=== PATIENT | female | born 1960 | race Caucasian/White ===

== ENCOUNTER → 2019-11-27 | Day surgery (SDC) | payer OTHER ==
[2019-11-24 09:36] LABS: BASOPHILS # (AUTO) 0.1 (0.0-0.1); BASOPHILS % 0.8 % (0.0-1.0); EOSINOPHILS # (AUTO) 0.3 (0.0-0.4); EOSINOPHILS % 4.7 % (0.0-6.0); HEMATOCRIT 36.3 % (34.2-44.1); LYMPHOCYTES # (AUTO) 1.8 (1.0-3.2); LYMPHOCYTES % 29.3 % (18.0-39.1); MEAN CORPUSCULAR HEMOGLOBIN 29.8 pg (28-32); MEAN CORPUSCULAR HGB CONC 33.1 g/dL (31-35); MEAN CORPUSCULAR VOLUME 90.1 fL (81-99); MONOCYTES # (AUTO) 0.5 (0.2-0.8); MONOCYTES % 7.8 % (4.4-11.3); NEUTROPHILS # (AUTO) 3.4 (2.1-6.9); NEUTROPHILS % 57.1 % (38.7-80.0); PLATELET COUNT 279 x10e3/uL (140-360); RED BLOOD COUNT 4.03 x10e6/uL (3.6-5.1); RED CELL DISTRIBUTION WIDTH 12.8 % (11.7-14.4)
[2019-11-24 09:51] LABS: INR 0.88; PROTHROMBIN TIME 12.4 seconds (11.9-14.5)
[2019-11-24 09:58] LABS: ALANINE AMINOTRANSFERASE 14 IU/L (0-55); ALBUMIN 4.3 g/dL (3.5-5.0); ALBUMIN/GLOBULIN RATIO 1.5 (0.8-2.0); ALKALINE PHOSPHATASE 78 IU/L (40-150); ANION GAP 12.3 mmol/L (8-16); BLOOD UREA NITROGEN 18 mg/dL (7-26); BUN/CREATININE RATIO 25 (6-25); CALCIUM 9.1 mg/dL (8.4-10.2); CARBON DIOXIDE 28 mmol/L (22-29); CHLORIDE 106 mmol/L (98-107); CREATININE, SERUM 0.72 mg/dL (0.57-1.11); EST GLOMERULAR FILTRATION RATE > 60 ML/MIN (60-); GLUCOSE 93 mg/dL (74-118); POTASSIUM 4.3 mmol/L (3.5-5.1); SODIUM 142 mmol/L (136-145)
--- NOTE | 2019-11-25 17:00 | NUR ---
Pt contacted by phone for interview of scheduled procedure. Review of medical history and current medications. Procedural consent on day of arrival to be completed, pre-op orders, and twice bathing education completed. All questions clarified and or answered where appropriate. pt verbalizes understanding to include day of procedure expectations and practice social distancing. Pt to bring medication list day of . - [facility] [place]
[2019-11-27] VITALS (9 sets, daily range): BP systolic 136–163; BP diastolic 54–87
[~2019-11-27] VITALS: Ht 157.5 cm; Wt 85.3 kg
[~2019-11-27] MED LIST: ADENOSINE 3MG/1ML 30ML VIAL ONE; ATENOLOL50 MG PO; FENTANYL CITRATE/PF 100MCG/2 ML INJ ONE; FUROSEMIDE40 MG PO; HEPARIN SOD/SOD CHLORIDE 2,000 ML ONE; IBUPROFEN400 MG PO; IOPAMIDOL 370 MG/ML 200 ML INFUS..BTL INJ ONE; LEVOTHYROXINE112 MCG PO; LIDOCAINE HCL 2% LOCAL 20 ML VIAL ONE; LOVASTATIN20 MG PO; MIDAZOLAM HCL 2 MG/2 ML VIAL ONE; SODIUM CHLORIDE 0.9% 1000ML 1,000 ML ONE; SODIUM CHLORIDE 0.9% 50ML 50 ML ONE; ULTRAM50 MG PO
--- NOTE | 2019-11-27 08:10 | NUR ---
0810am PREP NOTE PROCEDRAL .................................................................................. pt in XXXXXX, prepped for procedure. Alert oriented and appropriate, PERRLA, respirations even and unlabored to room air. Pulses x4 extremities equal and faint. Pedal pulses PT/DP weak to nonexistent and marked. Cap fill brisk < 3 sec. bilateral feet semi cool and pale. Skin warm and dry integrity appears intact in general. IV #20 left ac x2 started and presents healthy w/o s/s of infiltration or complaint. Abdomen soft and supple. pt offered toileting, denies need to urinate or defecate. Personal affects with patient. Family at bedside. Pt and family verbalizes understanding of POC. gabi --- Addendum: 11/27/19 at 1636 by Darcy Camacho RN 0810am Pt is in Prep room #10 gabi
--- NOTE | 2019-11-27 11:11 | NUR ---
1111 am RECEIVING NOTE BUREAU CHIEF RECOVERY DEPT............................................................... Bedside report received from RN. Identifierx2. Alert oriented and appropriate, PERRLA, respirations even and unlabored to room air. Pulses x4 extremities equal and strong. Pedal pulses PT/DP X2 and marked. Cap fill brisk < 3 sec. Rt tr band site intact.No gross issues pain,pallor,pressure or dysthymia. Skin warm and dry integrity appears D/I IV 20g to ac presents healthy w/o s/s of infiltration or complaint. Abdomen soft and supple. pt offered toileting, denies need to urinate or defecate. No personal affects with patient. Family at bedside. Pt and family verbalizes understanding of POC. Currently w/o complaint of pain or need. -ds/rn
--- NOTE | 2019-11-27 11:15 | NUR ---
Bedside report received from Bisi HORTON. Identifierx2. Alert oriented and appropriate, PERRLA, respirations even and unlabored to room air. Pulses x4 extremities equal and strong. + neovascular function Cap fill brisk < 3 sec. Skin warm and dry integrity appears intact. IV 20g to left AC presents healthy w/o s/s of infiltration or complaint. Abdomen soft and supple. pt offered toileting, denies need to urinate or defecate. Personal affects with patient. Family brought to bedside. Pt and family verbalizes understanding of POC. Dr Spencer to room discussing POC -cgf
--- NOTE | 2019-11-27 12:00 | NUR ---
1200 RADIAL Compression removal: Initial Cuff volume 13cc 12noon -3cc Removed No hematoma/bleeding noted with normal neurovascular function. 1215 -5cc Removed No hematoma/ bleeding noted with normal neurovascular function. 1230 -5cc Removed No hematoma/bleeding noted with normal neurovascular function. Air removal completed. Stasis achieved sterile 2x2,Tegaderm, Coban dressing No hematoma, bleeding noted with normal neurovascular function. Pt instructed on POC. Ds/Rn
--- NOTE | 2019-11-27 13:21 | Operative Report ---
DATE OF PROCEDURE: 11/27/2019 SURGEON: Brian Spencer DO PROCEDURES PERFORMED: 1. Conscious sedation, 40 minutes. 2. Selective coronary angiography x2. 3. Left heart catheterization. 4. Fractional flow reserve measurement of the left anterior descending coronary artery. PREPROCEDURE DIAGNOSIS: Abnormal stress test. POSTPROCEDURE DIAGNOSIS: Abnormal stress test. ESTIMATED BLOOD LOSS: Less than 20 mL. SPECIMENS REMOVED: None. PROCEDURE IN DETAIL: After informed consent was obtained, the patient was brought to the cardiac catheterization laboratory in a fasting and nonsedated state. Bilateral groins and right wrist were prepped and draped in the usual sterile fashion. The patient received fentanyl and midazolam administered by the laborer prestressed concrete nurse and her neurologic and physiologic status were monitored by myself and laborer prestressed concrete staff for 40 minutes. A 2% lidocaine was infiltrated over the right anterior wrist for local anesthesia. Using a micropuncture needle, the right radial artery was accessed via the modified Seldinger technique and a 5/6 Slender sheath was placed. Next, diagnostic selective coronary angiography x2 and left heart catheterization were performed. Next, I want to further interrogate the left anterior descending coronary artery stenosis with FFR, so the patient received additional heparin for therapeutic anticoagulation. The left main was cannulated with an XB LAD 3.0 guide catheter. After zeroing and equalization of pressures, the 3 LAD lesions were crossed with the common FFR wire and the patient received systemic adenosine for therapeutic hyperemia. The lowest FFR reading was 0.66, indicating the stenotic lesions were hemodynamically significant. Everything was subsequently removed. Final angiography confirmed patency of the vessels. The patient tolerated the procedure well with no immediate complications. Hemostasis was achieved via TR band. She was transferred back to her room in stable condition. PROCEDURAL FINDINGS: 1. Left main coronary artery is long and patent with no stenotic disease. 2. The proximal LAD is short without significant obstructive disease. The 1st diagonal branch is a smaller vessel, 2 to 2.25 mm in diameter. It has a long diffuse 70% stenosis. Just after the takeoff of the 1st small diagonal branch, there is a severe 70% to 80% stenosis of the LAD. There then 2 other tandem 70% lesions in the mid to distal LAD. 3. The left circumflex coronary artery provides 2 obtuse marginal vessels. There is diffuse plaquing throughout the circumflex artery. The 1st obtuse marginal vessel has an ostial 70% stenosis. 4. The right coronary artery is a large dominant vessel and provides posterior lateral branches and a PDA. The ostial PDA has a 50% stenosis. 5. Left ventricular end-diastolic pressure was 15 mmHg with no aortic valve gradient present upon pullback. IMPRESSION: Severe coronary artery disease. RECOMMENDATIONS: Referred for bypass surgery. DO PORSCHE Klein/MODL /[id number]
--- NOTE | 2019-11-27 13:30 | NUR ---
1330pm TELEMARKETING REPRESENTATIVE RECOVERY DISCHARGE NURSING NOTE Pt meets DC criteria. Rt TR band assessed for s/s of complication and presecence of hematoma. Skin warm, dry, no discolor, and pulses present. IV removed rt ac. Distal tip appears intact. VS WNL. Pt denies pain, sob, or need at this time. Family at BS. Review of discharge paperwork and follow up instructions. verbalized understanding. Pt to wheelchair and transported to front of hospital. Transferred to private vehicle under own strength w/o incident with DC paperwork in hand. - debra/dmitriy
== END | disposition home or self-care (01) ==
LOC: CATH LAB 06:50
PROVIDERS: ATTEND Internal Medicine Cardiovascular Disease
DX: I25.10 Atherosclerotic heart disease of native coronary artery without angina pectoris (principal); R94.39 Abnormal result of other cardiovascular function study; Z01.812 Encounter for preprocedural laboratory examination; Z11.59 Encounter for screening for other viral diseases
CPT/HCPCS: 36415; 80053; 85025; 85610; 93458; 93571; C1753; C1887; J0153; J2001; J2250; J3010; J7030; Q9967; U0002; 99152; 99153

== ENCOUNTER 2020-01-13 20:36 | Emergency (ER) | payer OTHER ==
[~2020-01-13] VITALS: Ht 157.5 cm; Wt 85.3 kg
[~2020-01-13 20:36] MED LIST changes: -ADENOSINE 3MG/1ML 30ML VIAL ONE; -FENTANYL CITRATE/PF 100MCG/2 ML INJ ONE; -HEPARIN SOD/SOD CHLORIDE 2,000 ML ONE; -IOPAMIDOL 370 MG/ML 200 ML INFUS..BTL INJ ONE; -LIDOCAINE HCL 2% LOCAL 20 ML VIAL ONE; -MIDAZOLAM HCL 2 MG/2 ML VIAL ONE; -SODIUM CHLORIDE 0.9% 1000ML 1,000 ML ONE; -SODIUM CHLORIDE 0.9% 50ML 50 ML ONE
[2020-01-13] MEDS ORDERED: SODIUM CHLORIDE 0.9% 500ML 500 ML IV STA (21:09)
[2020-01-13] MEDS ORDERED: ONDANSETRON HCL INJ 2MG/ML 2ML 2 MG/ML VIAL IV PRN (21:15)
--- NOTE | 2020-01-13 21:27 | Emergency Department Note ---
History of Present Illnes History of Present Illness Chief Complaint: Abdominal Complaints History of Present Illness This is a 59 year old female Chief Complaint Comment 59 Y/O FEMALE PT AAOX3 PRESENTS TO THE ER C/O LOWER ABD PAIN ONSET ONSET THIS EVENING; PT STATES LAST BM WAS ON 01/07/20; PT STATES SHE HAS BEEN TAKING MIRALAX WITH NO RELIEF; PT STATES SHE HAD A TRIPLE BYPASS ON 12/15/19 AT [facility]; PT DENIES ANY URINARY SYMPTOMS; Historian: Patient Arrival Mode: Car Motion Graphics Artist Required: No Onset (how long ago): day(s) (10) Location: lower abd Quality: pressure Radiation: Reports non-radiation Severity: moderate Onset quality: gradual Duration (how long): day(s) (10) Timing of current episode: constant Progression: worsening Chronicity: new Context: Reports recent surgery (Triple bypass); Denies recent illness Relieving factors: none Exacerbating factors: none Associated symptoms: Reports denies other symptoms Treatments prior to arrival: none Past Medical/Family History Physician Review I have reviewed the patient's past medical and family history. Any updates have been documented here. Past Medical History Recent Fever: No Clinical Suspicion of Infectio: No New/Unexplained Change in Ment: No Past Medical History: Hypertension, A-Fib, Hypothyroidism, Hyperlipedemia Past Surgical History: CABG Other Surgery: TRIPLE BYPASS - 12/15/19 Review of Systems Review of Systems Constitutional: Reports no symptoms EENTM: Reports no symptoms Cardiovascular: Reports no symptoms Respiratory: Reports no symptoms Gastrointestinal: Reports as per HPI, Reports abdominal pain Genitourinary: Reports no symptoms Musculoskeletal: Reports no symptoms Integumentary: Reports no symptoms Neurological: Reports no symptoms Psychological: Reports no symptoms Endocrine: Reports no symptoms Hematological/Lymphatic: Reports no symptoms Physical Exam Related Data Allergies: Coded Allergies: Sulfa (Sulfonamide Antibiotics) (Verified Allergy, Unknown, 01/13/20) erythromycin base (Verified Allergy, Unknown, 01/13/20) Triage Vital Signs Vital Signs Date Time Temp Pulse Resp B/P (MAP) Pulse Ox O2 Delivery O2 Flow Rate FiO2 01/13/20 20:51 98.3 78 20 140/75 100 Room Air Vital signs reviewed: Yes Physical Exam CONSTITUTIONAL Constitutional: Present well-developed, Present well-nourished HENT HENT: Present normocephalic, Present atraumatic, Present oropharynx clear/moist, Present nose normal HENT L/R: Present left ext ear normal, Present right ext ear normal EYES Eyes: Reports PERRL, Reports conjunctivae normal NECK Neck: Present ROM normal PULMONARY Pulmonary: Present effort normal, Present breath sounds normal CARDIOVASCULAR Cardiovascular: Present regular rhythm, Present heart sounds normal, Present capillary refill normal, Present normal rate GASTROINTESTINAL Abdominal: Present soft, Present nontender, Present bowel sounds normal GENITOURINARY Genitourinary: Present exam deferred SKIN Skin: Present warm, Present dry MUSCULOSKELETAL Musculoskeletal: Present ROM normal NEUROLOGICAL Neurological: Present alert, Present oriented x 3, Present no gross motor or sensory deficits PSYCHOLOGICAL Psychological: Present mood/affect normal, Present judgement normal Assessment & Plan Medical Decision Making MDM 59 y.o F presents for abd pain and constipation. No sig abd tenderness. No BM for 10 days. Initial diff includes SBO vs constipation vs functional abd pain among others. W/o including Ct abd/pelv, labs show no SBO. Diagnosis favors constipation. Incidental UTI noted. Will Rx Keflex and send home with [place]. Doubt emergent process at this time. I discussed results patient as well as expected disease time course and management. They will follow up with their primary care provider or return to the emergency department for new or worsening symptoms. Patient's appropriate for discharge. Reassessment Reassessment time: 21:26 Reassessment Well appearing, NAD Assessment & Plan Final Impression: (1) Constipation (2) UTI (urinary tract infection) Depart Disposition: HOME, SELF-CARE Last Vital Signs Date Time Temp Pulse Resp B/P (MAP) Pulse Ox O2 Delivery O2 Flow Rate FiO2 01/13/20 20:51 98.3 78 20 140/75 100 Room Air Home Meds Reported Medications Tramadol Hcl (ULTRAM) 50 Mg Tablet, 50 MG PO Q12H PRN for CRAMPS, TAB 11/25/19 Ibuprofen (IBUPROFEN) 400 Mg Tablet, 800 MG PO Q8H PRN for MODERATE PAIN (4-6), TAB 11/25/19 Furosemide (FUROSEMIDE) 40 Mg Tablet, 20 MG PO Daily, #30 TAB 11/25/19 Levothyroxine Sodium (LEVOTHYROXINE SODIUM) 112 Mcg Tablet, 137 MCG PO DAILY, #30 TAB 11/25/19 Atenolol (ATENOLOL) 50 Mg Tablet, 50 MG PO DAILY 11/25/19 Lovastatin (LOVASTATIN) 20 Mg Tablet, 20 MG PO DAILY 11/25/19 Medications in the ED Ondansetron HCl 4 mg Q4H PRN IV NAUSEA AND VOMITING; Start 01/13/20 at 21:15; Stop 02/12/20 at 21:14 Sodium Chloride 500 ml @ 0 mls/hr Q0M STAT IV ; Start 01/13/20 at 21:09; Stop 01/13/20 at 21:10; Status DC REAL [place] MD Jan 13, 2020 21:26
[2020-01-13] MEDS ORDERED: DIATRIZOATE MEGL/DIATRIZOA SOD 30 ML BTL PO ONE (21:37)
[2020-01-13 21:59] LABS: BASOPHILS % 0.3 % (0.0-1.0); EOSINOPHILS # (AUTO) 0.3 (0.0-0.4); EOSINOPHILS % 4.4 % (0.0-6.0); HEMATOCRIT 33.7 % (34.2-44.1); HEMOGLOBIN 10.7 g/dL (12.0-16.0); LYMPHOCYTES # (AUTO) 1.2 (1.0-3.2); LYMPHOCYTES % 18.2 % (18.0-39.1); MEAN CORPUSCULAR HEMOGLOBIN 29.7 pg (28-32); MEAN CORPUSCULAR HGB CONC 31.8 g/dL (31-35); MEAN CORPUSCULAR VOLUME 93.6 fL (81-99); MONOCYTES # (AUTO) 0.5 (0.2-0.8); NEUTROPHILS # (AUTO) 4.7 (2.1-6.9); NEUTROPHILS % 69.7 % (38.7-80.0); PLATELET COUNT 257 x10e3/uL (140-360); RED CELL DISTRIBUTION WIDTH 15.2 % (11.7-14.4)
[2020-01-13 22:06] LABS: BILIRUBIN,URINE SMALL (NEGATIVE); CLARITY,URINE CLOUDY (CLEAR); COLOR,URINE YELLOW (YELLOW); KETONES,URINE NEGATIVE (NEGATIVE); LEUKOCYTE ESTERASE ,URINE SMALL (NEGATIVE); NITRITE,URINE NEGATIVE (NEGATIVE); PROTEIN,URINE DIPSTICK 2+ (NEGATIVE); URINE UROBILINOGEN 0.2 mg/dL (0.2 - 1)
[2020-01-13 22:15] LABS: AMORPHOUS SEDIMENT,URINE MODERATE (FEW); BACTERIA,URINE MODERATE /HPF; EPITHELIAL CELLS,URINE FEW /LPF
[2020-01-13 22:16] LABS: ALBUMIN 3.6 g/dL (3.5-5.0); ANION GAP 15.1 mmol/L (8-16); CREATININE, SERUM 1.15 mg/dL (0.57-1.11); POTASSIUM 4.1 mmol/L (3.5-5.1)
[2020-01-13] MEDS ORDERED: SODIUM CHLORIDE 0.9% 50ML 50 ML ONE (22:43)
[2020-01-13] MEDS ORDERED: IOPAMIDOL 370 MG/ML 200 ML INFUS..BTL INJ ONE (22:43)
--- NOTE | 2020-01-13 23:31 | Diagnostic Imaging Report ---
EXAM: CT Abdomen and Pelvis WITH contrast INDICATION: ^low mid abd pain, constipation ^[id number] ^[id number] COMPARISON: None. TECHNIQUE: Abdomen and pelvis were scanned utilizing a multidetector helical scanner from the lung base to the pubic symphysis after administration of IV contrast. Coronal and sagittal reformations were obtained. Dose modulation, iterative reconstruction, and/or weight based adjustment of the mA/kV was utilized to reduce the radiation dose to as low as reasonably achievable. Routine protocol was performed. Scan was performed when during portal venous phase. IV CONTRAST: 100 mL of Isovue-370 ORAL CONTRAST: Gastroview COMPLICATIONS: None RADIATION DOSE: Total DLP: 648.51 mGy*cm Estimated effective dose: (DLP x 0.015 x size factor) mSv CTDIvol has been reviewed. It is below the limits set by the Radiation Protocol Committee (RPC). FINDINGS: LINES and TUBES: None. LOWER THORAX: Unremarkable. Partially seen median sternotomy wires. HEPATOBILIARY: No focal hepatic lesions. No biliary ductal dilation. GALLBLADDER: No radio-opaque stones or sludge. No wall thickening. SPLEEN: No splenomegaly. PANCREAS: No focal masses or ductal dilatation. ADRENALS: No adrenal nodules KIDNEYS/URETERS: Kidneys enhance symmetrically. No hydronephrosis. No cystic or solid mass lesions. No stones. GI TRACT: No abnormal distention, wall thickening, or evidence of bowel obstruction. Stool throughout the colon. Appendix is normal. PELVIC ORGANS/BLADDER: Unremarkable. LYMPH NODES: No lymphadenopathy. VESSELS: Unremarkable. PERITONEUM / RETROPERITONEUM: No free air or fluid. BONES: Generalized demineralization. Lower lumbar spine degenerative changes and facet arthropathy. Grade 1 L5-S1 spondylolisthesis. SOFT TISSUES: Abdominal wall subcutaneous nodules, likely injection related. IMPRESSION: 1. No acute inflammatory process in the abdomen/pelvis. 2. Moderate colonic stool burden, consistent with history of constipation. Signed by: Dr. Raul Hudson MD on 01/13/2020 11:28 PM
[2020-01-13] MEDS ORDERED: PEG (High)/E-LYTE SOLN 4,000 ML BTL PO ONE (23:45)
[2020-01-14 00:56] VITALS: BP 131/59
--- OUTSIDE RECORDS SUMMARY | 2020-01-15 19:21 | XMS REPORT | Clinical Summary ---
Author Author MARY Ingenium GolfSt. Luke'S Meridian Medical CenterSpare Change PaymentsNemours Children's Hospital Address Unknown Phone Unavailable Care Team Providers Care Relief Docking Master Name Role Phone Pcp, No PCP Unavailable Sadi Stern 29 Unavailable Allergies Comments Active Allergy Reactions Severity Noted Date Sulfamethoxazole-Trimetho Hives 12/11/2019 prim Erythromycin Nausea And Low 11/29/2008 Vomiting Nitrofurantoin Hives, Rash Medium Monohyd/M-Cryst Medications End Date Status Medication Sig Dispensed Refills Start Date Active aspirin 81 MG EC tablet Take 81 mg by 0 mouth daily. Active levothyroxine (SYNTHROID, Take 137 mcg 0 LEVOTHROID) 137 MCG by mouth tablet Every morning on an empty stomach. Active furosemide (LASIX) 20 MG Take 20 mg by 0 tablet mouth daily . Active traZODone (DESYREL) 50 MG Take 50 mg by 0 11/11 tablet mouth daily. 0 12/23/2020 Active amiodarone (PACERONE) 200 Take 1 tablet 0 12/10 MG tablet (200 mg 0 total) by mouth 2 (two) times daily. 12/23/2020 Active atorvastatin (LIPITOR) 40 Take 1 tablet 0 12/10 MG tablet (40 mg total) 0 by mouth nightly. Active famotidine (PEPCID) 20 MG Take 1 tablet 0 12/10 tablet (20 mg total) 0 by mouth every 12 (twelve) hours. Active heparin injection 5,000 Inject 1 mL 1 mL 0 units/mL (5,000 Units 0 total) subcutaneousl y every 8 (eight) hours. 01/23/2020 Active lidocaine (LIDODERM) 5 % Place 1 patch 30 patch 0 patch onto the skin 0 daily for 30 days Remove & Discard patch within 12 hours or as directed by . 12/24/2020 Active metoprolol succinate Take 1 tablet 0 (TOPROL-XL) 25 MG 24 hr (25 mg total) 0 tablet by mouth daily. Additional Information Patient not taking. Reason: Other, Reported on 01/08/2020 11:07 AM 12/23/2020 Active senna (SENOKOT) 8.6 mg Take 2 0 02 tablet tablets (17.2 0 mg total) by mouth nightly. 12/24/2019 Discontinued (Stop Taking at Discharge) lovastatin (MEVACOR) 20 Take 20 mg by 0 MG tablet mouth nightly. 12/24/2019 Discontinued (Stop Taking at Discharge) atenoloL (TENORMIN) 50 MG Take 50 mg by 0 tablet mouth daily. 12/24/2019 Discontinued (Stop Taking at Discharge) ibuprofen (ADVIL,MOTRIN) Take 800 mg 0 800 MG tablet by mouth 2 (two) times daily as needed for Pain. 12/24/2019 Discontinued (Stop Taking at Discharge) traMADoL (ULTRAM) 50 mg Take 50 mg by 0 tablet mouth daily as needed for Pain. 12/24/2019 Discontinued (Stop Taking at Discharge) clobetasoL (TEMOVATE) APPLY TO 0 11/18/19 2 0.05 % ointment SEVERELY 0 AFFECTED AREA ON BODY TWICE DAILY FOR 3 WEEKS NEEDED, THEN APPLY ON WEEKENDS ONLY FOR 2 WEEKS, AVOID FACE GROIN, ARMPI 01/03/2020 traMADoL (ULTRAM) 50 mg Take 1 tablet 30 tablet 0 tablet (50 mg total) 0 by mouth every 6 (six) hours as needed for up to 10 days. Max Daily Amount: 200 mg 12/31/2019 ondansetron (ZOFRAN-ODT) Take 1 tablet 20 tablet 0 4 MG disintegrating (4 mg total) 0 tablet by mouth every 6 (six) hours as needed for up to 7 days. 12/31/2019 povidone-iodine Apply 1 480 mL 0 (BETADINE) 10 % external application 0 solution topically daily for 7 days. 12/31/2019 promethazine (PHENERGAN) Take 1 tablet 30 tablet 0 12.5 MG tablet (12.5 mg 0 total) by mouth every 6 (six) hours as needed for up to 7 days. 12/31/2019 promethazine (PHENERGAN) Place 1 12 each 0 1 12.5 MG suppository suppository 0 (12.5 mg total) rectally every 6 (six) hours as needed for up to 7 days. Active Problems Problem Noted Date Hypercholesterolemia 12/15/2019 Coronary artery disease with angina pectoris, unspeci fied vessel or lesion 12/15/2019 type, unspecified whether [place] or tra nsplanted heart CAD (coronary artery disease) 12/15/2019 S/P CABG x 3 (Dr. Isbell 12/15/2019) 12/15/2019 HTN (hypertension) 10/24/2007 Hypothyroidism 10/24/2007 Encounters Care Team Description Date Type Specialty Lu Isbell MD Post-operative state 01/08/2020 Office Visit Cardiology Jose Roberto Siddiqi 12/21/2019 Outside Orders Lab Lu Isbell MD BYPASS,AORTO CORONARY DAVONTE/SVG 12/15/2019 Surgery Sadi Cintron MD Malviya, Sanjana 12/15/2019 Anesthesia Event uL Isbell MD Kazim, Lubna Syed, MD Coronary artery disease with angina pect [place], unspecified vessel or lesion type, unspecified whether [place] or transplanted heart (HCC) (Primary Dx) 12/15/2019 Hospital Cardiology - Encounter 12/24/2019 12/11/2019 Hospital Pre-Admission Testi ng Encounter Lu Isbell MD 12/11/2019 Hospital Radiology Encounter Lu Isbell MD Pre-op testing (Primary Dx) 12/11/2019 Office Visit Cardiology 12/11/2019 Travel Lu Isbell MD Coronary artery disease of [place] artery of [place] heart with stable angina pectoris (HCC) (Primary Dx) 12/08/2019 Video - Cardiology Telemedicine Lu Isbell MD 12/08/2019 Orders Only Cardiology after 01/12/2019 Family History Medical History Relation Name Comments Diabetes Father Glaucoma Father Heart attack Father Heart disease Father Hypertension Father Hypertension Mother Osteoporosis Mother Heart attack Paternal Uncle Relation Name Status Comments Father Mother Alive Paternal Uncle Social History Date Tobacco Use Types Packs/Day Years Used Never Smoker Smokeless Tobacco: Never Used Drinks/Week oz/Week Comments Alcohol Use No Alcohol Habits Answer Date Recorded How often do you have a drink containing alcohol? Never 12/11/2019 How many drinks containing alcohol do you have on No t asked a typical day when you are drinking? How often do you have six or more drinks on one Not asked occasion? Sex Assigned at Date Recorded Not on file Last Filed Vital Signs Reading Time Taken Comments Vital Sign 119/78 01/08/2020 11:03 AM CDT Blood Pressure 102 01/08/2020 11:03 AM CDT Pulse 37 C (98.6 F) 01/08/2020 11:03 AM CDT Temperature 18 01/08/2020 11:03 AM CDT Respiratory Rate 96% 01/08/2020 11:03 AM CDT rooma ir Oxygen Saturation 40% 12/15/2019 8:00 PM CDT Inhaled Oxygen Concentration 78.9 kg (174 lb) 01/08/2020 11:03 AM CDT Weight 157.5 cm (5' 2") 01/08/2020 11:03 AM CDT Height 31.83 01/08/2020 11:03 AM CDT Body Mass Index Plan of Treatment Health Maintenance Due Date Last Done Comments BREAST CANCER SCREENING 1960 COLON CANCER SCREENING 1960 COLONOSCOPY PNEUMOCOCCAL VACCINE 0-64 02/20/1964 YRS (1 of 1 - PPSV23) CERVICAL CANCER SCREENING 1979 PAP ONLY (Age 21-65) INFLUENZA VACCINE (#1) 2019 LIPID PANEL 12/10/2022 12/11/2019 Procedures Comments Procedure Name Priority Date/Time Associated Diag nosis BASIC METABOLIC PANEL (7) Routine 12/24/2019 5:20 AM CDT MAGNESIUM Routine 12/24/2019 5:20 AM CDT CBC (HEMOGRAM ONLY) Routine 12/24/2019 5:20 AM CDT BASIC METABOLIC PANEL (7) Routine 12/23/2019 5:21 AM CDT MAGNESIUM Routine 12/23/2019 5:21 AM CDT CBC (HEMOGRAM ONLY) Routine 12/23/2019 5:21 AM CDT BASIC METABOLIC PANEL (7) Routine 12/22/2019 4:14 AM CDT MAGNESIUM Routine 12/22/2019 4:14 AM CDT CBC (HEMOGRAM ONLY) Routine 12/22/2019 4:14 AM CDT BASIC METABOLIC PANEL (7) Routine 12/21/2019 3:16 AM CDT MAGNESIUM Routine 12/21/2019 3:16 AM CDT CBC (HEMOGRAM ONLY) Routine 12/21/2019 3:16 AM CDT BASIC METABOLIC PANEL (7) Routine 12/20/2019 4:33 AM CDT MAGNESIUM Routine 12/20/2019 4:33 AM CDT CBC (HEMOGRAM ONLY) Routine 12/20/2019 4:33 AM CDT XR ESOPH SWALLOW FUNCTION Routine 12/19/2019 W/CINE VIDEO 11:17 AM CDT BASIC METABOLIC PANEL (7) Routine 12/19/2019 4:54 AM CDT MAGNESIUM Routine 12/19/2019 4:54 AM CDT CBC (HEMOGRAM ONLY) Routine 12/19/2019 4:54 AM CDT XR CHEST 1 VIEW Routine 12/19/2019 PORTABLE/BEDSIDE 4:39 AM CDT PREPARE LEUKO-REDUCED RBC Routine 12/19/2019 4:00 AM CDT PREPARE LEUKO-REDUCED RBC Routine 12/18/2019 11:54 PM CDT TRANSFUSION SERVICE 12/18/2019 REPORT - SCAN 6:01 PM CDT POCT-GLUCOSE METER Routine 12/18/2019 5:01 PM CDT POCT-GLUCOSE METER Routine 12/18/2019 12:55 PM CDT POCT-GLUCOSE METER Routine 12/18/2019 7:16 AM CDT SARS-COV2/RT-PCR ([facility] & Routine 12/18/2019 REF LABS) 5:57 AM CDT BASIC METABOLIC PANEL (7) Routine 12/18/2019 4:48 AM CDT CALCIUM, IONIZED Routine 12/18/2019 4:48 AM CDT MAGNESIUM Routine 12/18/2019 4:48 AM CDT CBC (HEMOGRAM ONLY) Routine 12/18/2019 4:48 AM CDT XR CHEST 1 VIEW Routine 12/18/2019 PORTABLE/BEDSIDE 4:42 AM CDT POCT-GLUCOSE METER Routine 12/17/2019 10:10 PM CDT CBC W/PLT COUNT & AUTO YANCI 12/17/2019 DIFFERENTIAL 6:38 PM CDT CBC W/PLT COUNT & AUTO YANCI 12/17/2019 DIFFERENTIAL 6:38 PM CDT TRANSFUSION SERVICE 12/17/2019 REPORT - SCAN 6:01 PM CDT POCT-GLUCOSE METER Routine 12/17/2019 5:28 PM CDT ECG 12-LEAD Routine 12/17/2019 5:15 PM CDT ECG 12-LEAD Routine 12/17/2019 5:15 PM CDT Procedure Note - Interface, External Ris In - 12/17/2019 5:23 PM CDT Ventricula r Rate 85 BPM Atrial Rate 85 BPM P-R Interval 154 ms QRS Duration 78 ms Q-T Interval 364 ms QTC Calculatio n(Bazett) 433 ms P Banks 53 degrees R Banks -1 degrees T Banks 16 degrees Normal sinus rhythm ST elevation, consider early repolariza tion, pericardit is, or injury Abnormal ECG When compared with ECG of 0 09:55, Significan t changes have occurred TRANSFUSE LEUKO-REDUCED Routine 12/17/2019 RED BLOOD CELLS 2:45 PM CDT POCT-GLUCOSE METER Routine 12/17/2019 12:13 PM CDT POCT-GLUCOSE METER Routine 12/17/2019 8:09 AM CDT POCT-GLUCOSE METER Routine 12/17/2019 4:04 AM CDT HEMOGLOBIN A1C Routine 12/17/2019 3:51 AM CDT BASIC METABOLIC PANEL (7) Routine 12/17/2019 3:51 AM CDT CALCIUM, IONIZED Routine 12/17/2019 3:51 AM CDT MAGNESIUM Routine 12/17/2019 3:51 AM CDT CBC (HEMOGRAM ONLY) Routine 12/17/2019 3:51 AM CDT PHOSPHORUS Routine 12/17/2019 3:51 AM CDT XR CHEST 1 VIEW Routine 12/17/2019 PORTABLE/BEDSIDE 3:46 AM CDT POCT-GLUCOSE METER Routine 12/17/2019 12:11 AM CDT POCT-GLUCOSE METER Routine 12/16/2019 8:09 PM CDT TRANSFUSION SERVICE 12/16/2019 REPORT - SCAN 6:23 PM CDT POCT-GLUCOSE METER Routine 12/16/2019 12:02 PM CDT POCT-GLUCOSE METER Routine 12/16/2019 9:49 AM CDT POCT-GLUCOSE METER Routine 12/16/2019 8:53 AM CDT POCT-GLUCOSE METER Routine 12/16/2019 5:15 AM CDT POCT-GLUCOSE METER Routine 12/16/2019 3:20 AM CDT LACTIC ACID, ARTERIAL Routine 12/16/2019 3:17 AM CDT CALCIUM, IONIZED Routine 12/16/2019 3:17 AM CDT BLOOD GAS, ARTERIAL Routine 12/16/2019 3:17 AM CDT MAGNESIUM Routine 12/16/2019 3:17 AM CDT CBC (HEMOGRAM ONLY) Routine 12/16/2019 3:17 AM CDT BASIC METABOLIC PANEL (7) Routine 12/16/2019 3:17 AM CDT PHOSPHORUS Routine 12/16/2019 3:17 AM CDT XR CHEST 1 VIEW Routine 12/16/2019 PORTABLE/BEDSIDE 2:27 AM CDT POCT-GLUCOSE METER Routine 12/16/2019 1:27 AM CDT POCT-GLUCOSE METER Routine 12/15/2019 10:57 PM CDT CALCIUM, IONIZED Routine 12/15/2019 10:57 PM CDT XR CHEST 1 VIEW STAT 12/15/2019 PORTABLE/BEDSIDE 9:55 PM CDT HGB/HCT (H&H) - STAT LAB STAT 12/15/2019 8:29 PM CDT GLUCOSE-STAT LAB STAT 12/15/2019 8:29 PM CDT POTASSIUM-STAT LAB STAT 12/15/2019 8:29 PM CDT SODIUM NA-STAT LAB STAT 12/15/2019 8:29 PM CDT BLOOD GAS, ARTERIAL STAT 12/15/2019 8:29 PM CDT RRL CRITICAL LABS STAT 12/15/2019 (ABG,NA,K,H&H,GLUCOSE) 8:29 PM CDT CALCIUM, IONIZED Routine 12/15/2019 6:47 PM CDT HGB/HCT (H&H) - STAT LAB STAT 12/15/2019 6:47 PM CDT GLUCOSE-STAT LAB STAT 12/15/2019 6:47 PM CDT BLOOD GAS, ARTERIAL STAT 12/15/2019 6:47 PM CDT MAGNESIUM STAT 12/15/2019 6:47 PM CDT BASIC METABOLIC PANEL (7) STAT 12/15/2019 6:47 PM CDT HGB/HCT (H&H) - STAT LAB STAT 12/15/2019 5:20 PM CDT GLUCOSE-STAT LAB STAT 12/15/2019 5:20 PM CDT POTASSIUM-STAT LAB STAT 12/15/2019 5:20 PM CDT SODIUM NA-STAT LAB STAT 12/15/2019 5:20 PM CDT BLOOD GAS, ARTERIAL STAT 12/15/2019 5:20 PM CDT RRL CRITICAL LABS STAT 12/15/2019 (ABG,NA,K,H&H,GLUCOSE) 5:20 PM CDT LACTIC ACID, ARTERIAL STAT 12/15/2019 5:20 PM CDT ECG 12-LEAD Routine 12/15/2019 3:08 PM CDT Procedure Note - Interface, External Ris In - 12/22/2019 8:19 PM CDT Ventricula r Rate 67 BPM Atrial Rate 67 BPM P-R Interval 190 ms QRS Duration 86 ms Q-T Interval 454 ms QTC Calculatio n(Bazett) 479 ms P Banks 46 degrees R Banks -1 degrees T Banks -10 degrees Normal sinus rhythm Normal ECG When compared with ECG of 0 09:55, ST now depressed in Inferior leads ST elevation now present in Lateral leads T wave inversion now evident in Inferior leads ECG 12-LEAD Routine 12/15/2019 3:08 PM CDT XR CHEST 1 VIEW STAT 12/15/2019 PORTABLE/BEDSIDE 3:03 PM CDT CBC W/PLT COUNT & AUTO STAT 12/15/2019 DIFFERENTIAL 2:41 PM CDT POTASSIUM STAT 12/15/2019 2:41 PM CDT GLUCOSE STAT 12/15/2019 2:41 PM CDT POTASSIUM-STAT LAB STAT 12/15/2019 2:41 PM CDT SODIUM NA-STAT LAB STAT 12/15/2019 2:41 PM CDT COMPREHENSIVE METABOLIC STAT 12/15/2019 PANEL 2:41 PM CDT CBC W/PLT COUNT & AUTO STAT 12/15/2019 DIFFERENTIAL 2:41 PM CDT LACTIC ACID, ARTERIAL STAT 12/15/2019 2:41 PM CDT OXYGEN SATURATION, STAT 12/15/2019 MEASURED 2:41 PM CDT FIBRINOGEN STAT 12/15/2019 2:41 PM CDT APTT STAT 12/15/2019 2:41 PM CDT PROTHROMBIN TIME/INR STAT 12/15/2019 2:41 PM CDT CALCIUM, IONIZED STAT 12/15/2019 2:41 PM CDT HGB/HCT (H&H) - STAT LAB STAT 12/15/2019 2:41 PM CDT GLUCOSE-STAT LAB STAT 12/15/2019 2:41 PM CDT BLOOD GAS, ARTERIAL STAT 12/15/2019 2:41 PM CDT RRL CRITICAL LABS STAT 12/15/2019 (ABG,NA,K,H&H,GLUCOSE) 2:41 PM CDT PHOSPHORUS STAT 12/15/2019 2:41 PM CDT MAGNESIUM STAT 12/15/2019 2:41 PM CDT HGB/HCT (H&H) - STAT LAB STAT 12/15/2019 1:16 PM CDT GLUCOSE-STAT LAB STAT 12/15/2019 1:16 PM CDT POTASSIUM-STAT LAB STAT 12/15/2019 1:16 PM CDT SODIUM NA-STAT LAB STAT 12/15/2019 1:16 PM CDT BLOOD GAS, ARTERIAL STAT 12/15/2019 1:16 PM CDT CALCIUM, IONIZED STAT 12/15/2019 1:16 PM CDT RRL CRITICAL LABS STAT 12/15/2019 (ABG,NA,K,H&H,GLUCOSE) 1:16 PM CDT POCT-ACT Routine 12/15/2019 12:44 PM CDT HGB/HCT (H&H) - STAT LAB Routine 12/15/2019 12:39 PM CDT GLUCOSE-STAT LAB Routine 12/15/2019 12:39 PM CDT POTASSIUM-STAT LAB Routine 12/15/2019 12:39 PM CDT SODIUM NA-STAT LAB Routine 12/15/2019 12:39 PM CDT BLOOD GAS, ARTERIAL Routine 12/15/2019 12:39 PM CDT PLATELET COUNT Routine 12/15/2019 12:39 PM CDT THROMBOELASTOGRAPH (TEG) STAT 12/15/2019 12:39 PM CDT FIBRINOGEN STAT 12/15/2019 12:39 PM CDT APTT STAT 12/15/2019 12:39 PM CDT PROTHROMBIN TIME/INR STAT 12/15/2019 12:39 PM CDT CALCIUM, IONIZED Routine 12/15/2019 12:39 PM CDT RRL CRITICAL LABS Routine 12/15/2019 (ABG,NA,K,H&H,GLUCOSE) 12:39 PM CDT CBC W/PLT COUNT & AUTO Routine 12/15/2019 DIFFERENTIAL 12:39 PM CDT CBC W/PLT COUNT & AUTO STAT 12/15/2019 DIFFERENTIAL Add-on 12:39 PM CDT POCT-ACT Routine 12/15/2019 11:50 AM CDT HGB/HCT (H&H) - STAT LAB STAT 12/15/2019 11:47 AM CDT GLUCOSE-STAT LAB STAT 12/15/2019 11:47 AM CDT POTASSIUM-STAT LAB STAT 12/15/2019 11:47 AM CDT SODIUM NA-STAT LAB STAT 12/15/2019 11:47 AM CDT BLOOD GAS, ARTERIAL STAT 12/15/2019 11:47 AM CDT RRL CRITICAL LABS STAT 12/15/2019 (ABG,NA,K,H&H,GLUCOSE) 11:47 AM CDT POCT-ACT Routine 12/15/2019 11:22 AM CDT HGB/HCT (H&H) - STAT LAB STAT 12/15/2019 11:19 AM CDT GLUCOSE-STAT LAB STAT 12/15/2019 11:19 AM CDT POTASSIUM-STAT LAB STAT 12/15/2019 11:19 AM CDT SODIUM NA-STAT LAB STAT 12/15/2019 11:19 AM CDT BLOOD GAS, ARTERIAL STAT 12/15/2019 11:19 AM CDT RRL CRITICAL LABS STAT 12/15/2019 (ABG,NA,K,H&H,GLUCOSE) 11:19 AM CDT POCT-ACT Routine 12/15/2019 11:01 AM CDT BLOOD GAS, VENOUS Routine 12/15/2019 10:46 AM CDT HGB/HCT (H&H) - STAT LAB STAT 12/15/2019 10:46 AM CDT GLUCOSE-STAT LAB STAT 12/15/2019 10:46 AM CDT POTASSIUM-STAT LAB STAT 12/15/2019 10:46 AM CDT SODIUM NA-STAT LAB STAT 12/15/2019 10:46 AM CDT BLOOD GAS, ARTERIAL STAT 12/15/2019 10:46 AM CDT RRL CRITICAL LABS STAT 12/15/2019 (ABG,NA,K,H&H,GLUCOSE) 10:46 AM CDT POCT-ACT Routine 12/15/2019 10:30 AM CDT ANESTHESIA BERTIN Routine 12/15/2019 9:11 AM CDT HGB/HCT (H&H) - STAT LAB STAT 12/15/2019 8:34 AM CDT GLUCOSE-STAT LAB STAT 12/15/2019 8:34 AM CDT POTASSIUM-STAT LAB STAT 12/15/2019 8:34 AM CDT SODIUM NA-STAT LAB STAT 12/15/2019 8:34 AM CDT BLOOD GAS, ARTERIAL STAT 12/15/2019 8:34 AM CDT CALCIUM, IONIZED STAT 12/15/2019 8:34 AM CDT RRL CRITICAL LABS STAT 12/15/2019 (ABG,NA,K,H&H,GLUCOSE) 8:34 AM CDT ENDOSCOPIC HARVEST,VEIN 12/15/2019 Coronary navi ry disease 7:07 AM CDT with angina pectoris, unspecified vessel or lesion type, unspecified whether [place] or transplanted heart (HCC) Special Needs (ICU BED NEEDED) BYPASS,AORTO CORONARY 12/15/2019 Coronary artery disease DAVONTE/SVG 7:07 AM CDT with angina pectori s, unspecified vessel or lesion type, unspecified whether [place] or transplanted heart (HCC) Special Needs (ICU BED NEEDED) TYPE AND SCREEN, STAT 12/15/2019 AUTOMATED 6:45 AM CDT POCT-GLUCOSE METER Routine 12/15/2019 5:56 AM CDT TRANSFUSION SERVICE 12/12/2019 REPORT - SCAN 6:04 PM CDT XR CHEST 2 VIEWS Routine 12/11/2019 11:48 AM CDT CBC W/PLT COUNT & AUTO Routine 12/11/2019 DIFFERENTIAL 10:15 AM CDT TYPE AND SCREEN, Routine 12/11/2019 AUTOMATED 10:15 AM CDT PROTHROMBIN TIME/INR Routine 12/11/2019 10:15 AM CDT MAGNESIUM Routine 12/11/2019 10:15 AM CDT LIPID PANEL Routine 12/11/2019 10:15 AM CDT HEMOGLOBIN A1C Routine 12/11/2019 10:15 AM CDT COMPREHENSIVE METABOLIC Routine 12/11/2019 PANEL 10:15 AM CDT CBC W/PLT COUNT & AUTO Routine 12/11/2019 DIFFERENTIAL 10:15 AM CDT APTT Routine 12/11/2019 10:15 AM CDT SARS-COV2/RT-PCR ([facility] & STAT 12/11/2019 Pre-o p testing REF LABS) 10:04 AM CDT ECG 12-LEAD Routine 12/11/2019 9:55 AM CDT Procedure Note - Interface, External Ris In - 12/11/2019 2:28 PM CDT Ventricula r Rate 61 BPM Atrial Rate 61 BPM P-R Interval 176 ms QRS Duration 82 ms Q-T Interval 424 ms QTC Calculatio n(Bazett) 426 ms P Banks 33 degrees R Banks 11 degrees T Banks 44 degrees Normal sinus rhythm Normal ECG No previous ECGs available ECG 12-LEAD Routine 12/11/2019 9:55 AM CDT after 01/12/2019 Results * CBC (Hemogram only) (12/24/2019 5:20 AM CDT) Only the most recent of 9 results within the time period is included. WBC 7.0 3.5 - 10.5 K/L [facility] RBC 3.05 (L) 3.93 - 5.22 M/L [facility] Hemoglobin 8.8 (L) 11.2 - 15.7 GM/DL [facility] Hematocrit 28.7 (L) 34.1 - 44.9 % [facility] MCV 94.1 79.4 - 94.8 fL [facility] MCH 28.9 25.6 - 32.2 pg [facility] MCHC 30.7 (L) 32.2 - 35.5 GM/DL [facility] RDW 15.0 (H) 11.7 - 14.4 % [facility] Platelets 326 150 - 450 K/CU MM [facility] MPV 10.7 9.4 - 12.3 fL [facility] nRBC 0 0 - 0 /100 WBC [facility] Specimen Blood Performing Organization Address City/State/Zipcode Ph one Number [facility] [address] [place], [place] [address] [facility] [place] * Magnesium (12/24/2019 5:20 AM CDT) Only the most recent of 12 results within the time period is included. Magnesium 1.8 1.6 - 2.6 mg/dL [facility] Specimen Blood Narrative Performed At Security Clerk ID - SHANIQUA Moore [facility] Performing Organization Address [facility] Ph one Number [facility] [address] [place], [place] [address] [facility] * Basic Metabolic Panel (12/24/2019 5:20 AM CDT) Only the most recent of 10 results within the time period is included. Sodium 139 136 - 145 meq/L [facility] Potassium 3.9 3.5 - 5.1 meq/L [facility] Chloride 104 98 - 107 meq/L [facility] CO2 26 22 - 29 meq/L [facility] BUN 14 7 - 21 mg/dL [facility] Creatinine 0.68 0.57 - 1.25 mg/dL [facility] Glucose 119 (H) 70 - 105 mg/dL [facility] Calcium 8.5 8.4 - 10.2 mg/dL [facility] EGFR 88Comment: ESTIMATED GFR IS mL/min/1.73 sq [facility] NOT ACCURATE CREATININE [facility] CLEARANCE IN PREDICTING MEDICAL CENTER GLOMERULAR FILTRATION RATE. ESTIMATED GFR IS NOT APPLICABLE FOR DIALYSIS PATIENTS. Specimen Blood Narrative Performed At Security Clerk ID - SHANIQUA Moore [facility] Performing Organization Address [facility] Ph one Number [facility] [address] [place], [place] [address] [facility] * FL esoph swallow funct with cine video (12/19/2019 11:17 AM CDT) Specimen Narrative Performed At FINAL REPORT [employer] RIS Modified barium swallow exam with speec h pathology service CLINICAL HISTORY: Dysphagia with aspira tion IMPRESSION: Please see the speech pathology service report for details. Barium contrast of multiple consistenci es is given to the patient to swallow. Fluoroscopic observation is pe rformed during swallowing. No aspiration is identified. Fluoro time: 1.1 minutes Number of images: 5 Signed: Effie Solorio MD Report Verified Date/Time: 12/19/2019 11:33:45 Reading Location: [address] Co nsult Reading Room Procedure Note Interface, External Ris In - 12/19/2019 11:35 AM CDT FINAL REPORT Modified barium swallow exam with speech pathology service CLINICAL HISTORY: Dysphagia with aspiration IMPRESSION: Please see the speech pathology service report for details. Barium contrast of multiple consistencies is given to the patient to swallow. Fluoroscopic observation is performed during swallowing. No aspiration is identified. Fluoro time: 1.1 minutes Number of images: 5 Signed: Effie Solorio MD Report Verified Date/Time: 12/19/2019 11:33:45 Reading Location: [address] Ortho Consult Reading Room Performing Organization Address City/State/Zipcode Ph one Number [facility] * XR chest 1 view portable / bedside (12/19/2019 4:39 AM CDT) Only the most recent of 6 results within the time period is included. Specimen Narrative Performed At FINAL REPORT [employer] R[facility] RAD, CHEST, 1 VIEW, NON DEPT INDICATION: post op/ ct removal COMPARISON: Prior day's exam FINDINGS: Portable frontal view of the chest. IMPRESSION: Support Lines: The chest tubes have bee n removed. Lungs and pleura: Mild bibasilar subseg mental atelectasis. No consolidation or sizable effusion. Ther e is decreased size of the previous trace bilateral apical pneumot horaces. Heart and mediastinum: Stable contours. Additional findings: None. Signed: Sadi Connolly MD Report Verified Date/Time: 12/19/2019 04:46:32 Procedure Note Interface, External Ris In - 12/19/2019 4:48 AM CDT FINAL REPORT RAD, CHEST, 1 VIEW, NON DEPT INDICATION: post op/ ct removal COMPARISON: Prior day's exam FINDINGS: Portable frontal view of the chest. IMPRESSION: Support Lines: The chest tubes have been removed. Lungs and pleura: Mild bibasilar subsegmental atelectasis. No consolidation or sizable effusion. There is decreased size of the previous trace bilateral apical pneumothoraces. Heart and mediastinum: Stable contours. Additional findings: None. Signed: Sadi Connolly MD Report Verified Date/Time: 12/19/2019 04:46:32 Performing Organization Address [facility] one Number [facility] * Prepare Leuko-Red RBC (12/19/2019 4:00 AM CDT) Only the most recent of 2 results within the time period is included. Pathologist Diane CROSSMATCH COMPATIBLE SAFETRACE TX Unit ABO A Pos SAFETRACE TX UNIT NUMBER [id number] SAFETRACE TX Status WORK IN PROGRESS SAFETRACE TX Blood Bank RED BLOOD CELLS [employer]AFETRACE TX Product PRODUCT CODE [id number] SAFETRACE TX Specimen Other Performing Organization Address [facility] one Number [employer] TX * TRANSFUSION SERVICE REPORT - SCAN (12/18/2019 6:01 PM CDT) Only the most recent of 4 results within the time period is included. Narrative Performed At This result has an attachment that is n ot available. * POC-Glucose meter (12/18/2019 5:01 PM CDT) Only the most recent of 18 results within the time period is included. Pathologist Diane POC-Glucose 97Comment: : TESTED AT [facility] 70 - 110 mg/dL C VT [employer] Meter [address] [facility] [id number]: Security Clerk/Combination Building Inspector ID [facility] = [id number] for SHEREENDIANNATISHA Specimen Blood Performing Organization Address [facility] one Number [facility] [address] [place], [place] [address] [facility] * SARS-CoV2/RT-PCR (Asymptomatic ONLY) (12/18/2019 5:57 AM CDT) Only the most recent of 2 results within the time period is included. SARS-COV2/RT-PC Negative Not Detected, [facility] R Negative, See [facility] external report for [facility] linked test SARS-COV-2 [facility] PERFORMING LAB [facility] Specimen Other - Nasopharyngeal wall structure (body structure) Narrative Performed At Negative result for this test determine s that SARS-CoV-2 RNA was not present in [facility] the specimen above the Limit of Detecti on (LOD). However, Negative results do [facility] not preclude SARS-CoV-2 infection and s hould not be used as the sole basis for treatment or patient management decisio ns. Negative results must be combined with clinical observations, patient his tory, and epidemiological information. A false negative result may occur if a sp ecimen is improperly collected, transported or handled. A false negat vince result should be considered if patient's recent exposures or clinical presentation indicate that COVID-19 (SARS-CoV-2) is likely and diagnostic t ests for other causes of illness are negative. Re-testing should be consid ered in cases of suspected false negatives. The limit of detection for this assay i s 800 copies/mL. This SARS CoV-2 test is a real-time RT- PCR test intended for the qualitative detection of nucleic acid from SARS-CoV -2 in a nasopharyngeal swab specimen collected from individuals suspected of COVID-19 by their healthcare provider. This test has not been Food and Drug Ad ministration (FDA) cleared or approved. This is a modified version of an appr pawel Emergency Use Authorization (EUA) and is in the process of review by the FDA. Once authorized by the FDA, the issued EUA will be effective until the declaration that circumstances exist justifying the authorization of the reilly rgency use of in vitro diagnostic tests for detection and/or diagnosis of COVID -19 is terminated under Section 564(b)(2) of the Act or the EUA is revoked under Section 564(g) of the Act. Fact Sheet for Healthcare Providers: https://www.[employer]rest[employer]/sites/default/files/product/documents/Fact_Sheet_HC_Josie novoanrnw_Gdev_KCEM-LbI-9.pdf Fact Sheet for Healthcare Patients: https://www.[employer]/sites/default/files/product/documents/Fact_Sheet_Patients _Mogc_TVTW-YkX-2.pdf Performing Laboratory: [place] [address] Performing Organization Address City/[facility] Ph one Number [place] [address] [facility] * Calcium, Ionized (12/18/2019 4:48 AM CDT) Only the most recent of 9 results within the time period is included. Calcium, Ion 1.12 1.12 - 1.27 mmol/L [facility] pH, Blood 7.37 [facility] Specimen Blood Performing Organization Address [facility] Ph one Number [place] [address] [facility] * CBC with platelet count + automated diff (12/17/2019 6:38 PM CDT) Only the most recent of 4 results within the time period is included. WBC 10.5 3.5 - 10.5 K/L [facility] RBC 2.71 (L) 3.93 - 5.22 M/L [facility] Hemoglobin 8.0 (L) 11.2 - 15.7 GM/DL [facility] Hematocrit 24.8 (L) 34.1 - 44.9 % [facility] MCV 91.5 79.4 - 94.8 fL [facility] MCH 29.5 25.6 - 32.2 pg [facility] MCHC 32.3 32.2 - 35.5 GM/DL [facility] RDW 15.5 (H) 11.7 - 14.4 % [facility] Platelets 147 (L) 150 - 450 K/CU MM [facility] MPV 10.7 9.4 - 12.3 fL [facility] nRBC 0 0 - 0 /100 WBC [facility] % Neutros 79 % [facility] % Lymphs 12 % [facility] % Monos 7 % [facility] % Eos 0 % [facility] % Baso 0 % [facility] # Neutros 8.30 (H) 1.56 - 6.13 K/L [facility] # Lymphs 1.24 1.18 - 3.74 K/L [facility] # Monos 0.78 (H) 0.24 - 0.36 K/L [facility] # Eos 0.03 (L) 0.04 - 0.36 K/L [facility] # Baso 0.02 0.01 - 0.08 K/L [facility] Immature 1 0 - 1 % [facility] Specimen Blood Performing Organization Address City/State/Zipcode Ph one Number [place] [phone] [place], [place] [address] [facility] * ECG 12 lead (12/17/2019 5:15 PM CDT) Only the most recent of 3 results within the time period is included. Specimen Narrative Performed At Ventricular Rate 85 BPM GE MUSE Atrial Rate 85 BPM P-R Interval 154 ms QRS Duration 78 ms Q-T Interval 364 ms QTC Calculation(Bazett) 433 ms P Banks 53 degrees R Banks -1 degrees T Banks 16 degrees Normal sinus rhythm ST elevation, consider early repolariza tion, pericarditis, or injury Abnormal ECG When compared with ECG of 11-DEC-2019 0 9:55, Significant changes have occurred Confirmed by MD ELIZABETH JOSEPH P ([id number]) on 12/18/2019 6:35:49 AM Procedure Note Interface, External Ris In - 12/18/2019 6:35 AM CDT Ventricular Rate 85 BPM Atrial Rate 85 BPM P-R Interval 154 ms QRS Duration 78 ms Q-T Interval 364 ms QTC Calculation(Bazett) 433 ms P Banks 53 degrees R Banks -1 degrees T Banks 16 degrees Normal sinus rhythm ST elevation, consider early repolarization, pericarditis, or injury Abnormal ECG When compared with ECG of 11-DEC-2019 09:55, Significant changes have occurred Confirmed by MD ELIZABETH JOSEPH P ([id number]) on 12/18/2019 6:35:49 AM Performing Organization Address City/[facility] Ph one Number GE MUSE * Transfuse Leuko-Red RBC (12/17/2019 2:45 PM CDT) * Phosphorus (12/17/2019 3:51 AM CDT) Only the most recent of 3 results within the time period is included. Phosphorus 2.6 2.3 - 4.7 mg/dL [facility] Specimen Blood Narrative Performed At Security Clerk ID - SHANIQUA M [facility] Performing Organization Address [facility] one Number [address] [phone] [place] [address] * Hemoglobin A1c (12/17/2019 3:51 AM CDT) Only the most recent of 2 results within the time period is included. Hemoglobin A1C 4.9 4.3 - 6.1 % [facility] Specimen Blood Performing Organization Address [facility] Ph one Number [address] [facility] * Lactic Acid, Arterial (12/16/2019 3:17 AM CDT) Only the most recent of 3 results within the time period is included. Lactate, Art 1.0 0.5 - 2.2 mmol/L [facility] Specimen Blood, Arterial Narrative Performed At Security Clerk ID - SHANELL [facility] Performing Organization Address City/[facility] one Number [place] [phone] * Blood gas, arterial (12/16/2019 3:17 AM CDT) Only the most recent of 11 results within the time period is included. pH, Arterial 7.39 7.35 - 7.45 [facility] pCO2, Arterial 38 35 - 45 mmHg [facility] pO2, Arterial 142 (H) 80 - 90 mmHg [facility] O2 Sat, 98.8 (H) 96.0 - 97.0 % [facility] HCO3, Arterial 23 21 - 29 mmol/L [facility] Base Excess, -2.1 (L) -2.0 - 3.0 mmol/L [facility] Patient 36.7 C [facility] FIO2 28.0 % [facility] Specimen Blood, Arterial Performing Organization Address City/[facility] one Number [place] [phone] [place] [address] * Potassium-Stat Lab (12/15/2019 8:29 PM CDT) Only the most recent of 9 results within the time period is included. Potassium 4.6 3.6 - 5.5 meq/L [facility] Specimen Blood, Arterial Performing Organization Address City/[facility] one Number [place] [phone] [place] [address] * Sodium Na-Stat Lab (12/15/2019 8:29 PM CDT) Only the most recent of 9 results within the time period is included. Sodium 135 (L) 136 - 145 meq/L [facility] Specimen Blood, Arterial Performing Organization Address [facility] one Number [address] [facility] * Glucose-Stat Lab (12/15/2019 8:29 PM CDT) Only the most recent of 10 results within the time period is included. Glucose 149 (H) 70 - 110 mg/dL [facility] Specimen Blood, Arterial Performing Organization Address [facility] one Number [address] [facility] * HGB/HCT (H&H)-Stat Lab (12/15/2019 8:29 PM CDT) Only the most recent of 10 results within the time period is included. Hemoglobin 9.2 (L) 12.0 - 15.0 g/dL [facility] Hematocrit 27.0 (L) 36.0 - 45.0 % [facility] Specimen Blood, Arterial Performing Organization Address [facility] one Number [address] [facility] * Oxygen saturation, measured (12/15/2019 2:41 PM CDT) O2 Saturation 80.0 % [facility] ([facility] Specimen Blood Performing Organization Address [facility] one Number [address] [facility] * aPTT (12/15/2019 2:41 PM CDT) Only the most recent of 3 results within the time period is included. PTT 36.1 (H) 22.5 - 36.0 seconds [facility] Specimen Blood Performing Organization Address [facility] one Number [address] [facility] * Prothrombin time/INR (12/15/2019 2:41 PM CDT) Only the most recent of 3 results within the time period is included. Protime 18.5 (H) 11.9 - 14.2 seconds [facility] INR 1.59 <=5.90 [facility] Specimen Blood Narrative Performed At Effective 08/07/2018: PT Reference Range Change [facility] New: 11.9-14.2 Previous: 11.7-14.7 [facility] MEDICAL MIGUELANGEL TER RECOMMENDED COUMADIN/WARFARIN INR THERA PY RANGES STANDARD DOSE: 2.0-3.0 Includes: PROP HYLAXIS for venous thrombosis, systemic embolization; TREATMENT for venous thro mbosis and/or pulmonary embolus. HIGH RISK: Target INR is 2.5-3.5 for pa tients wiht mechanical heart valves. Performing Organization Address [facility] one [place] [phone] [place] [address] * Fibrinogen (12/15/2019 2:41 PM CDT) Only the most recent of 2 results within the time period is included. Fibrinogen 238 225 - 434 mg/dl [facility] Specimen Blood Performing Organization Address [facility] one [address] [facility] * Potassium-STAT (12/15/2019 2:41 PM CDT) Potassium 3.3 (L)Comment: Specimen 3.5 - 5.1 meq/L [facility] slightly hemolyzed [facility] Specimen Blood Narrative Performed At Security Clerk ID - CAROLINA F [facility] Performing Organization Address [facility] one [address] [facility] * Glucose-STAT (12/15/2019 2:41 PM CDT) Glucose 172 (H) 70 - 105 mg/dL [facility] Specimen Blood Narrative Performed At Security Clerk ID - DONY Acevedo [facility] Performing Organization Address City/State/Zipcode Ph one Number [place] [phone] [place], [place] [address] [facility] * Comprehensive metabolic panel (12/15/2019 2:41 PM CDT) Only the most recent of 2 results within the time period is included. Protein, Total 4.4 (L)Comment: Specimen 6.0 - 8.3 gm/dL [facility] slightly hemolyzed [facility] Albumin 2.7 (L)Comment: Specimen 3.5 - 5.0 g/dL [facility] slightly hemolyzed [facility] Alkaline 39 (L) 40 - 150 U/L [facility] Phosphatase [facility] Total Bilirubin 0.6Comment: Specimen slightly 0.2 - 1.2 mg/dL [facility] Sodium 142 136 - 145 meq/L [facility] Potassium 3.3 (L)Comment: Specimen 3.5 - 5.1 meq/L [facility] Chloride 117 (H) 98 - 107 meq/L [facility] CO2 20 (L) 22 - 29 meq/L [facility] BUN 18 7 - 21 mg/dL [facility] Creatinine 0.56 (L)Comment: Specimen 0.57 - 1.25 mg/dL [facility] slightly hemolyzed [facility] Glucose 172 (H) 70 - 105 mg/dL [facility] Calcium 6.8 (L) 8.4 - 10.2 mg/dL [facility] AST 35 (H)Comment: Specimen 5 - 34 U/L [facility] hemolyzed [facility] ALT 9Comment: Specimen slightly 6 - 55 U/L [facility] EGFR 110Comment: ESTIMATED GFR IS mL/min/1.73 sq m [facility] NOT ACCURATE CREATININE [facility] CLEARANCE IN PREDICTING MEDICAL CENTER GLOMERULAR FILTRATION RATE. ESTIMATED GFR IS NOT APPLICABLE FOR DIALYSIS PATIENTS. Specimen Blood Narrative Performed At Security Clerk ID - DONY Acevedo [facility] Performing Organization Address [facility] Ph one Number [address] [facility] [place] * POC ACTIVATED CLOTTING TIME (12/15/2019 12:44 PM CDT) Only the most recent of 5 results within the time period is included. Activated 114Comment: : 74-137 seconds, sec [facility] Clotting Time Baseline: TESTED AT [address], [address]: MEDICAL CENTER Security Clerk/Combination Building Inspector ID = [id number] for KATALINA SANZ Specimen Blood Performing Organization Address [facility] one [address] [address] [facility] [place] * Thromboelastograph (TEG) (12/15/2019 12:39 PM CDT) TEG Activated 4.8 4.0 - 7.0 minutes [facility] Clotting Time [facility] TEG Fibrinogen 65.9 61.0 - 73.0 degrees [facility] E'S Activity [facility] TEG Platelet 60.1 55.0 - 65.0 MM [facility] Aggregation [facility] TEG-H Activated 5.2 4.0 - 7.0 minutes [facility] Clotting Time [facility] TEG-H 63.9 61.0 - 73.0 degrees [facility] E'S Fibrinogen [facility] TEG-H Platelet 58.2 55.0 - 65.0 MM [facility] Aggregation [facility] Specimen Blood Performing Organization Address City/[facility] Ph one Number [address] [facility] [place] * Platelet count (12/15/2019 12:39 PM CDT) Platelets 79 (L) 150 - 450 K/CU MM [facility] Specimen Blood Narrative Performed At Security Clerk ID - [id number] [facility] Performing Organization Address [facility] one Number [address] [facility] * Blood gas, venous (12/15/2019 10:46 AM CDT) pH, Ranjith 7.40 7.32 - 7.42 [facility] pCO2, Ranjith 38 (L) 41 - 51 mmHg [facility] pO2, Ranjith 42 (H) 25 - 40 mmHg [facility] O2 Sat, Ranjith 82.5 (H) 40.0 - 70.0 % [facility] HCO3, Ranjith 23 21 - 29 mmol/L [facility] Base Excess, -1.7 -2.0 - 3.0 mmol/L [facility] Patient 35.4 C [facility] FIO2 80.0 % [facility] Specimen Blood Performing Organization Address [facility] one Number [address] [facility] * BERTIN (12/15/2019 9:11 AM CDT) Narrative Performed At Sadi Cintron MD 0 1:51 PM BERTIN Date: 12/15/2019 9:11 AM Sex: Female Loc ation: OR Examiner: Sadi Cintron MD Intubated Patient screened for esoph disease: Yes Pre Intervention Summary: Aorta: No ane urysm, no dissection, no mobile plaques AV: trileaflet morphology, no aortic st enosis, no aortic regurgitation LV: normal chamber size , no LVH, selma l systolic function (EF 60% Adams's), no RWMA, no thrombus. Selma l diastolic function. MV: normal morphology, no mitral regurg itation, no mitral stenosis LA: no ELLEN thrombus, normal ELLEN velocit ies PV: limited visualization RV: normal sized chamber, normal functi on, no thrombus. TAPSE 1.8cm TV: normal morphology, normal tricuspid regurgitation RA: no thrombus no PFO by color dopper flow All findings communicated to surgical t eam. Post Intervention Summary: Aorta: No aneurysm, no dissection, no mobile plaques AV: trileaflet morphology, no aortic st enosis, no aortic regurgitation LV: normal chamber size , no LVH, selma l systolic function (EF 60% Adams's), no RWMA, no thrombus. Selma l diastolic function. MV: normal morphology, no mitral regurg itation, no mitral stenosis, No GARCIA LA: no ELLEN thrombus PV: limited visualization RV: normal sized chamber, normal functi on, no thrombus. TAPSE 1.8cm TV: normal morphology, normal tricuspid regurgitation RA: no thrombus no PFO by color dopper flow All findings communicated to surgical t eam. Procedure Note Sadi Cintron MD - 12/15/2019 9:11 AM CDT BERTIN Date: 12/15/2019 9:11 AM Sex: Female Location: OR Examiner: Sadi Cintron MD Intubated Patient screened for esoph disease: Yes Pre Intervention Summary: Aorta: No aneurysm, no dissection, no mobile plaques AV: trileaflet morphology, no aortic stenosis, no aortic regurgitation LV: normal chamber size , no LVH, normal systolic function (EF 60% Adams's), no RWMA, no thrombus. Normal diastolic function. MV: normal morphology, no mitral regurgitation, no mitral stenosis LA: no ELLEN thrombus, normal ELLEN velocities PV: limited visualization RV: normal sized chamber, normal function, no thrombus. TAPSE 1.8cm TV: normal morphology, normal tricuspid regurgitation RA: no thrombus no PFO by color dopper flow All findings communicated to surgical team. Post Intervention Summary: Aorta: No aneurysm, no dissection, no mobile plaques AV: trileaflet morphology, no aortic stenosis, no aortic regurgitation LV: normal chamber size , no LVH, normal systolic function (EF 60% Adams's), no RWMA, no thrombus. Normal diastolic function. MV: normal morphology, no mitral regurgitation, no mitral stenosis, No GARCIA LA: no ELLEN thrombus PV: limited visualization RV: normal sized chamber, normal function, no thrombus. TAPSE 1.8cm TV: normal morphology, normal tricuspid regurgitation RA: no thrombus no PFO by color dopper flow All findings communicated to surgical team. * Type and screen, automated (12/15/2019 6:45 AM CDT) Only the most recent of 2 results within the time period is included. ABO/RH A POSITIVE [facility] Ab Scrn NEGATIVE [facility] Specimen Blood Performing Organization Address [facility] one Number [facility] [address] [place] [address] [facility] * XR chest 2 views (12/11/2019 11:48 AM CDT) Specimen Narrative Performed At FINAL REPORT GE RIS CLINICAL HISTORY: Pre-op screen TECHNIQUE: 2 views of the chest COMPARISON: None IMPRESSION: There are no focal infiltrates or effus ions. There is no significant appearing cardiomegaly. The visualized bones appear intact. Signed: Janie Saeed MD Report Verified Date/Time: 12/11/2019 13:40:13 [facility] Procedure Note Interface, External Ris In - 12/11/2019 1:42 PM CDT FINAL REPORT CLINICAL HISTORY: Pre-op screen TECHNIQUE: 2 views of the chest COMPARISON: None IMPRESSION: There are no focal infiltrates or effusions. There is no significant appearing cardiomegaly. The visualized bones appear intact. Signed: Janie Saeed MD Report Verified Date/Time: 12/11/2019 13:40:13 Reading Location: [facility] Reading Room Performing Organization Address [facility] one Number GE RIS * Lipid panel (12/11/2019 10:15 AM CDT) Triglycerides 111 mg/dL [facility] Cholesterol 172 mg/dL [facility] HDL 53 mg/dL [facility] LDL Calculated 97 mg/dL [facility] Specimen Blood Narrative Performed At Triglyceride Reference Range: [facility] Low Risk <150 [facility] Borderline 150-199 High Risk 200-499 Very High Risk >=500 Cholesterol Reference Range: Low Risk <200 Borderline 200-239 High Risk >240 HDL Cholesterol Reference Range: Low Risk >=60 High Risk <40 LDL Cholesterol Reference Range: Optimal <100 Near Optimal 100-129 Borderline 130-159 High 160-189 Very High >=190 Security Clerk ID - [id number] Performing Organization Address City/State/Zipcode Ph one Number [address] [facility] after 01/12/2019 Insurance Type Payer Benefit Subscriber ID Effective Phone Address Plan / Dates Group MANRIQUE [employer] MANRIQUE [id number] 2019-P MARKETPLAC resent E EXCHANGE CDC REVIEW CDC REVIEW [id number] 2019- [address] [place] [phone] Advance Directives For more information, please contact: [phone] Date Inactivated Comments Code Status Date Activated 12/24/2019 4:10 PM Full Code 12/15/2019 6:41 AM This code status was determined by: Patient
--- OUTSIDE RECORDS SUMMARY | 2020-01-15 19:22 | XMS REPORT | Continuity of Care Document ---
Author Author [facility] t Organization [facility] Address [address] [place] [address] Phone Unavailable Care Team Providers Care Windows Vmware Administrator Name Role Phone Nalini ROWANVernon PCP Mike GANDHI, Keyon Attphys Hiwot GANDHI, Dayne Guerra Attphys Farida Gracia Attphys Unavailable Sukhi GANDHI, Shruthi Leigh Attphys [phone] Darrian GANDHI, Gab Franco Attphys Jose Roberto Siddiqi Attphys Unavailable Abdulaziz GANDHI, Jose Mcdaniel Attphys Elisabeth Schafer Attphys Unavailable SHRUTHI ALBERTO Attphys Unavailable SHRUTHI ALBERTO Admphys Unavailable Payers Payer Name Policy Type Policy Number Effective Date Expiration Date Graham diaz [employer] [id number] 2019 -PresentExchange [id number] 2019 00:00:00 Alex Judaism [employer] [id number] 020-Present [id number] 2019 00:00:00 [facility] REVIEWCDC [id number] [address] [id number] 2019 00:00:00 [facility] Problems Condition Name Condition Details Condition Category Status Onset Date Resolution Date Last Treatment Date Treating Clinician Comments Source Hypercholesterolemia Hypercholesterolemia Disease Active 00:00:00 [facility] Coronary artery disease with angina pect [place], unspecified vessel or lesion type, unspecified whether [place] or transplanted heart Coronary artery disease with angina pectoris, unspecified vessel or lesion type, unspecified whether [place] or transplanted heart Disease Active 2019-12-15 00:00:00 [facility] CAD (coronary artery disease) CAD (coronary artery disease) Disease Active 2019-12-15 00:00:00 [facility] S/P CABG x 3 (Dr. Alberto 12/15/2019) S/P CABG x 3 (Dr. Alberto 12/15/2019) Disease Active 2019-12-15 00:00:00 [facility] HTN (hypertension) HTN (hypertension) Disease Active 2007-10-24 00:00:0 0 [facility] Hypothyroidism Hypothyroidism Disease Active 2007-10-24 00:00:00 [facility] Allergies, Adverse Reactions, Alerts Allergy Name Allergy Type Status Severity Reaction(s) Onset Date Inacti ve Date Treating Clinician Comments Source Nitrofurantoin Monohyd/M-Cryst Propensity to adverse reactions to d rug Active Hives, Rash 2020-01-14 00:00:00 Alex Adams Sulfamethoxazole-Trimethoprim Propensity to adverse reactions to dr ug Active Hives 2019-12-11 00:00:00 Alex Adams Sulfamethoxazole-Trimethoprim Propensity to adverse reactions Active Hives 2019-12-11 00:00:00 [facility] No Known Intolerances DA Active U 2008-11-29 00:00:00 [facility] erythromycin base DA Active U 2008-11-29 00:00:00 [facility] Erythromycin Propensity to adverse reactions to drug Active Hives 2008-11-29 00:00:00 Alex Suazo t Erythromycin Propensity to adverse reactions Active Na usea And Vomiting 2008-11-29 00:00:00 [facility] Nitrofurantoin Monohyd/M-Cryst Propensity to adverse reactions Acti ve Hives, Rash [facility] Family History Family Member Diagnosis Comments Start Date Stop Date Source Natural father Diabetes [facility] Natural father Glaucoma [facility] Natural father Heart disease [facility] Natural father Hypertension [facility] Natural mother Hypertension [facility] Natural mother Osteoporosis [facility] Paternal uncle Heart attack [facility] Social History Social Habit Start Date Stop Date Quantity Comments Source History SDOH Alcohol Std Drinks [facility] History SDOH Alcohol Binge [facility] Sex Assigned At [facility] Tobacco use and exposure 2020-01-08 00:00:00 2020-01-08 00:00:00 Ramiro sadler used [facility] Alcohol intake 2020-01-08 00:00:00 2020-01-08 00:00:00 Current non-drinker of alcohol (finding) [facility] Amy r History SDOH Alcohol Frequency 2019-12-11 00:00:00 2019-12-11 00:00:0 0 1 [facility] Smoking Status Start Date Stop Date Source Never smoker [facility] Medications Ordered Medication Name Filled Medication Name Start Date Stop Da te Current Medication? Ordering Clinician Indication Dosage Frequency Signature (SIG) Comments Components Source magnesium citrate solution 2020-01-14 00:00:00 2020-01-14 23:59: 00 No 296mL Take 1 Bottle (296 mL total) by mouth once for 1 dose. Alex Adams aspirin 81 MG EC tablet 2020-01-08 11:07:48 Yes 81mg QD Take 81 mg by mouth daily. [facility] levothyroxine (SYNTHROID, LEVOTHROID) 137 MCG tablet 2 11:07:48 Yes 137ug Take 137 mcg by mouth Every morning on a n empty stomach. [facility] furosemide (LASIX) 20 MG tablet 2020-01-08 11:07:48 Yes 20mg QD Take 20 mg by mouth daily . [facility] metoprolol succinate (TOPROL-XL) 25 MG 24 hr tablet 2019-12-25 00:00:00 2020-12-24 23:59:00 Yes 25mg QD Take 1 tab let (25 mg total) by mouth daily. [facility] lovastatin (MEVACOR) 20 MG tablet 2019-12-24::2019 00:00:00 No 20mg QD Take 20 mg by mouth nightly. [facility] atenoloL (TENORMIN) 50 MG tablet 2019-12-24 09::2019-12 00:00:00 No 50mg QD Take 50 mg by mouth daily. [facility] ibuprofen (ADVIL,MOTRIN) 800 MG tablet 2019-12-11 4 09::2019-12-24 00:00:00 No 800mg Take 800 mg by mouth 2 (two) antonio es daily as needed for Pain. [facility] traMADoL (ULTRAM) 50 mg tablet 2019-12-24::2019-12-24 00 :00:00 No 50mg Take 50 mg by mouth daily as needed for Pain. [facility] famotidine (PEPCID) 20 MG tablet 2019-12-24 00:00:00 Yes 20mg Take 1 tablet (20 mg total) by mouth every 12 (twelve) hours. [facility] heparin injection 5,000 units/mL 2019-12-24 00:00:00 Yes 5000U Inject 1 mL (5,000 Units total) subcutaneously every 8 (eight) hours. [facility] amiodarone (PACERONE) 200 MG tablet 2019-12-24 00:00:0 0 2020-12-23 23:59:00 Yes 200mg Q.5D Take 1 tablet (200 mg total) b y mouth 2 (two) times daily. [facility] atorvastatin (LIPITOR) 40 MG tablet 2019-12-24 00:00:0 0 2020-12-23 23:59:00 Yes 40mg QD Take 1 tablet (40 mg total) by mouth nig htly. [facility] senna (SENOKOT) 8.6 mg tablet 2019-12-24 00:00:00 2020-12-23 23: 59:00 Yes 17.2mg QD Take 2 tablets (17.2 mg total) by mouth nightly. [facility] lidocaine (LIDODERM) 5 % patch 2019-12-24 00:00:00 2020-01-11 3 23:59:00 Yes 1{patch} Q24H Place 1 patch onto t he skin daily for 30 days Remove & Discard patch within 12 hours or as directed by . [facility] traMADoL (ULTRAM) 50 mg tablet 2019-12-24 00:00:00 2020-01-03 23 :59:00 No 50mg Take 1 tablet (50 mg total) by mouth every 6 (six) hours as needed for up to 10 days. Max Daily Amount: 200 mg [facility] ondansetron (ZOFRAN-ODT) 4 MG disintegrating tablet 2019-12-24 00:00:00 2019-12-31 23:59:00 No 4mg Take 1 tablet (4 mg total) by mouth every 6 (six) hours as needed for up to 7 days. [facility] povidone-iodine (BETADINE) 10 % external solution 2019-12-24 00:00:00 2019-12-31 23:59:00 No 1{application} QD A pply 1 application topically daily for 7 days. [facility] promethazine (PHENERGAN) 12.5 MG tablet 00:00:00 2019-12-31 23:59:00 No 12.5mg Take 1 tablet (12.5 mg total) by mouth every 6 (six) hours as needed for up to 7 days. [facility] promethazine (PHENERGAN) 12.5 MG suppository 00:00:00 2019-12-31 23:59:[address] 1 suppos itory (12.5 mg total) rectally every 6 (six) hours as needed for up to 7 days. [facility] traZODone (DESYREL) 50 MG tablet 2019-12-06 00:00:00 Yes 50mg QD Take 50 mg by mouth daily. [facility] clobetasoL (TEMOVATE) 0.05 % ointment 2019-11-18 00:00 :00 2019-12-24 00:00:00 No APPLY TO SEVERE LY AFFECTED AREA ON BODY TWICE DAILY FOR 3 WEEKS NEEDED, THEN APPLY ON WEEKENDS ONLY FOR 2 WEEKS, AVOID FACE GROIN, ARMPI [facility] Vital Signs Vital Name Observation Time Observation Value Comments Source Systolic blood pressure 2020-01-14 23:24:00 140 mm[Hg] [facility] Diastolic blood pressure 2020-01-14 23:24:00 83 [facility] 2020-01-14 23:24:00 99 /min [facility] Respiratory rate 2020-01-14 23:24:00 17 /min Vero Adams Oxygen saturation in Arterial blood by Pulse oximetry 2019-03 23:24:00 97 /min [facility] Body temperature 2020-01-14 19:59:00 36.56 Annie Vero Adams Body height 2020-01-14 19:59:[address] [facility] [facility] weight 2020-01-14 19:59:00 78.926 kg [facility] BMI 2020-01-14 19:59:00 31.83 kg/m2 [facility] Systolic blood pressure 2020-01-08 11:03:00 119 mm[Hg] [facility] Diastolic blood pressure 2020-01-08 11:03:00 78 mm[Hg] [facility] Heart rate 2020-01-08 11:03:00 102 /min [facility] Body temperature 2020-01-08 11:03:00 37 Annie [facility] Respiratory rate 2020-01-08 11:03:00 18 /min [facility] Body height 2020-01-08 11:03:00 157.5 cm [facility] Body weight 2020-01-08 11:03:00 78.926 kg [facility] BMI 2020-01-08 11:03:00 31.83 kg/m2 [facility] Oxygen saturation in Arterial blood by Pulse oximetry 2019-03 11:03:00 96 /min rooma ir [facility] Procedures Procedure Date / Time Performed Performing Clinician Sourc e XR ABDOMEN 1 VW 2020-01-14 21:38:59 Mari Mi [facility] ethodist GENERAL 2020-01-14 20:48:48 [facility] CBC (HEMOGRAM ONLY) 2019-12-24 05:20:00 HeRosemary larryracheal [facility] I [facility] MAGNESIUM 2019-12-24 05:20:00 Rosemary Lai Watsondemetraracheal [facility] BASIC METABOLIC PANEL (7) 2019-12-24 05:20:[address] [facility] CBC (HEMOGRAM ONLY) 2019-12-23 05:21:00 HeibelRosemarycelles [facility] MAGNESIUM 2019-12-23 05:21:00 HeibRosemary whatley [facility] BASIC METABOLIC PANEL (7) 2019-12-23 05:21:00 Amelia Monzon ma [facility] CBC (HEMOGRAM ONLY) 2019-12-22 04:14:[address] [facility] MAGNESIUM 2019-12-22 04:14:00 HeibelRosemary Watsoncelles [facility] BASIC METABOLIC PANEL (7) 2019-12-22 04:14:[address] [facility] CBC (HEMOGRAM ONLY) 2019-12-21 03:16:[address] [facility] MAGNESIUM 2019-12-21 03:16:00 HeRosemary larry [facility] BASIC METABOLIC PANEL (7) 2019-12-21 03:16:[address] [facility] CBC (HEMOGRAM ONLY) 2019-12-20 04:33:[address] [facility] MAGNESIUM 2019-12-20 04:33:00 HeibRosemary whatleycellracheal [facility] BASIC METABOLIC PANEL (7) 2019-12-20 04:33:[address] [facility] XR ESOPH SWALLOW FUNCTION W/CINE VIDEO 2019-12-19 11:17:00 S ealsMaryann Aisha [facility] CBC (HEMOGRAM ONLY) 2019-12-19 04:54:00 Rosemary Lai [facility] MAGNESIUM 2019-12-19 04:54:00 Rosemary Lai [facility] BASIC METABOLIC PANEL (7) 2019-12-19 04:54:00 NicolásTrishAmeliaaylin Luevano ma [facility] XR CHEST 1 VIEW PORTABLE/BEDSIDE 2019-12-19 04:39:00 Seals, Tiff emilia Leonard [facility] PREPARE LEUKO-REDUCED RBC 2019-12-19 04:00:00 Real Carlson Jeremias [facility] PREPARE LEUKO-REDUCED RBC 2019-12-18 23:54:00 Nioclás Amelia uLevano ma [facility] TRANSFUSION SERVICE REPORT - SCAN 2019-12-18 18:01:01 Provid er, Default Scanning [facility] POCT-GLUCOSE METER 2019-12-18 17:01:00 Joan Colmenares [facility] POCT-GLUCOSE METER 2019-12-18 12:55:00 Darrian Joan [facility] POCT-GLUCOSE METER 2019-12-18 07:16:00 Darrian [facility] SARS-COV2/RT-PCR ([facility] REF [facility]) 2019-12-18 05:57:00 Marnie Colmenares [facility] CBC (HEMOGRAM ONLY) 2019-12-18 04:48:00 Rosemary Lai [facility] MAGNESIUM 2019-12-18 04:48:00 Rosemary Lai [facility] CALCIUM, IONIZED 2019-12-18 04:48:00 [place] (7) 2019-12-18 04:48:00 NicolásTrishAmeliaaylin Luevano ma [facility] XR CHEST 1 VIEW PORTABLE/BEDSIDE 2019-12-18 04:42:00 [place] POCT-[facility]SE METER 2019-12-17 22:10:00 Joan Colmenares [facility] CBC W/PLT COUNT & AUTO DIFFERENTIAL 2019-12-17 18:38:00 Ab kavon Jimenez [facility] TRANSFUSION SERVICE REPORT - SCAN 2019-12-17 18:01:07 Provid er, Default Scanning [facility] POCT-GLUCOSE METER 2019-12-17 17:28:00 Darrian [facility] ECG 12-LEAD 2019-12-17 17:15:00 Maryann Ferreira [facility] TRANSFUSE LEUKO-REDUCED RED BLOOD CELLS 2019-12-17 14:45:46 Real Carlson [facility] POCT-GLUCOSE METER 2019-12-17 12:13:00 Darrian [facility] POCT-GLUCOSE METER 2019-12-17 08:09:00 Darrian, [facility] POCT-GLUCOSE METER 2019-12-17 04:04:00 Darrian, [facility] PHOSPHORUS 2019-12-17 03:51:00 Homero Jimenez [facility] CBC (HEMOGRAM ONLY) 2019-12-17 03:51:00 Rosemary Lai [facility] MAGNESIUM 2019-12-17 03:51:00 Rosemary Lai [facility] CALCIUM, IONIZED 2019-12-17 03:51:00 [facility] BASIC METABOLIC PANEL (7) 2019-12-17 03:51:00 Amelia Monzon ma [facility] HEMOGLOBIN A1C 2019-12-17 03:51:00 Darrian Joan [facility] XR CHEST 1 VIEW PORTABLE/BEDSIDE 2019-12-17 03:46:00 Abby Hester [facility] POCT-GLUCOSE METER 2019-12-17 00:11:00 Joan Colmenares [facility] POCT-GLUCOSE METER 2019-12-16 20:09:00 Joan Colmenares [facility] TRANSFUSION SERVICE REPORT - SCAN 2019-12-16 18:23:25 Provid er, Default Scanning [facility] POCT-GLUCOSE METER 2019-12-16 12:02:00 Lu Alberto [facility] POCT-GLUCOSE METER 2019-12-16 09:49:00 Lu Alberto [facility] POCT-GLUCOSE METER 2019-12-16 08:53:00 Lu Alberto [facility] POCT-GLUCOSE METER 2019-12-16 05:15:00 Lu Alberto [facility] POCT-GLUCOSE METER 2019-12-16 03:20:00 Lu Alberto [facility] PHOSPHORUS 2019-12-16 03:17:00 Homero Jimenez [facility] BASIC METABOLIC PANEL (7) 2019-12-16 03:17:00 Rosemary Lai [facility] CBC (HEMOGRAM ONLY) 2019-12-16 03:17:[address] [facility] MAGNESIUM 2019-12-16 03:17:00 Rosemary Lai [facility] BLOOD GAS, ARTERIAL 2019-12-16 03:17:00 [place], [facility] CALCIUM, IONIZED 2019-12-16 03:17:00 [place], [facility] LACTIC ACID, ARTERIAL 2019-12-16 03:17:00 [place], [facility] XR CHEST 1 VIEW PORTABLE/BEDSIDE 2019-12-16 02:27:00 [place], [facility] POCT-GLUCOSE METER 2019-12-16 01:27:[address] [facility] CALCIUM, IONIZED 2019-12-15 22:57:00 Rosemary Lai Watsondemetraracheal [facility] POCT-GLUCOSE METER 2019-12-15 22:57:[address] [facility] XR CHEST 1 VIEW PORTABLE/BEDSIDE 2019-12-15 21:55:00 Abby Hester [facility] BLOOD GAS, ARTERIAL 2019-12-15 20:29:00 Lu Alberto [facility] SODIUM NA-STAT LAB 2019-12-15 20:29:[address] [facility] POTASSIUM-STAT LAB 2019-12-15 20:29:[address] [facility] GLUCOSE-STAT LAB 2019-12-15 20:29:00 Lu Alberto [facility] HGB/HCT (H&H) - STAT LAB 2019-12-15 20:29:00 Lu Alberto [facility] BASIC METABOLIC PANEL (7) 2019-12-15 18:47:00 Homero Jimenez [facility] MAGNESIUM 2019-12-15 18:47:00 Rosemary Lai [facility] BLOOD GAS, ARTERIAL 2019-12-15 18:47:00 Rosemary Lai [employer] [facility] GLUCOSE-STAT LAB 2019-12-15 18:47:00 [facility] HGB/HCT (H&H) - STAT LAB 2019-12-15 18:47:00 Rosemary Lai [employer] springer [facility] CALCIUM, IONIZED 2019-12-15 18:47:00 Rosemary [facility] LACTIC ACID, ARTERIAL 2019-12-15 17:20:00 Jack Laws [facility] BLOOD GAS, ARTERIAL 2019-12-15 17:20:00 Lu Alberto [facility] SODIUM NA-STAT LAB 2019-12-15 17:20:00 Lu Alberto [facility] POTASSIUM-STAT LAB 2019-12-15 17:20:00 Lu Alberto [facility] GLUCOSE-STAT LAB 2019-12-15 17:20:00 Lu Alberto [facility] HGB/HCT (H&H) - STAT LAB 2019-12-15 17:20:00 Lu Alberto [facility] ECG 12-LEAD 2019-12-15 15:08:19 Unknown, Hl7 Doctor [facility] XR CHEST 1 VIEW PORTABLE/BEDSIDE 2019-12-15 15:03:00 Rosemary Lai [facility] MAGNESIUM 2019-12-15 14:41:00 Homero Jimenez [facility] PHOSPHORUS 2019-12-15 14:41:00 Barbara Homero [facility] BLOOD GAS, ARTERIAL 2019-12-15 14:41:[address] [facility] HGB/HCT (H&H) - STAT LAB 2019-12-15 14:41:00 Rosemary Lai [facility] CALCIUM, IONIZED 2019-12-15 14:41:00 Rosemary Lai [facility] PROTHROMBIN TIME/INR 2019-12-15 14:41:00 Rosemary Lai [facility] APTT 2019-12-15 14:41:00 Rosemary Lai [facility] FIBRINOGEN 2019-12-15 14:41:00 Rosemary Lai [facility] OXYGEN SATURATION, MEASURED 2019-12-15 14:41:00 Rosemary Lai [facility] LACTIC ACID, ARTERIAL 2019-12-15 14:41:00 Rosemary Lai [facility] COMPREHENSIVE METABOLIC PANEL 2019-12-15 14:41:00 Heibel, Rosemary [facility] NA-STAT [facility] 2019-12-15 14:41:00 Rosemary Lai [facility] GLUCOSE 2019-12-15 14:41:00 [facility] POTASSIUM 2019-12-15 14:41:00 [facility] CBC W/PLT COUNT & AUTO DIFFERENTIAL 2019-12-15 14:41:00 [facility] CALCIUM, IONIZED 2019-12-15 13:16:07 Sadi Cintron [facility] BLOOD GAS, ARTERIAL 2019-12-15 13:16:07 Abdulaziz [facility] SODIUM NA-STAT LAB 2019-12-15 13:16:07 Sadi Cintron [facility] POTASSIUM-STAT LAB 2019-12-15 13:16:07 Abdulaziz [facility] GLUCOSE-STAT LAB 2019-12-15 13:16:07 Abdulaziz [facility] HGB/HCT (H&H) - STAT LAB 2019-12-15 13:16:07 Sadi Cintron [facility] POCT-ACT 2019-12-15 12:44:00 Lu Alberto [facility] CALCIUM, IONIZED 2019-12-15 12:39:26 Sadi Cintron [facility] PROTHROMBIN TIME/INR 2019-12-15 12:39:26 Sadi Cintron I [facility] APTT 2019-12-15 12:39:26 Sadi Cintron [facility] FIBRINOGEN 2019-12-15 12:39:26 Sadi Cintron [facility] THROMBOELASTOGRAPH (TEG) 2019-12-15 12:39:26 Sadi Cintron [facility] PLATELET COUNT 2019-12-15 12:39:26 Sadi Cintron [facility] BLOOD GAS, ARTERIAL 2019-12-15 12:39:26 Abdulaziz [facility] SODIUM NA-STAT LAB 2019-12-15 12:39:26 Sadi Cintron [facility] POTASSIUM-STAT LAB 2019-12-15 12:39:26 Sadi Cintron [facility] GLUCOSE-STAT LAB 2019-12-15 12:39:26 Sadi Cintron [facility] HGB/HCT (H&H) - STAT LAB 2019-12-15 12:39:26 Sadi Cintron [facility] CBC W/PLT COUNT & AUTO DIFFERENTIAL 2019-12-15 12:39:00 Ab kavon Jimenez [facility] POCT-ACT 2019-12-15 11:50:00 Lu Alberto [facility] BLOOD GAS, ARTERIAL 2019-12-15 11:47:44 Lu Alberto [facility] SODIUM NA-STAT LAB 2019-12-15 11:47:[address] [facility] POTASSIUM-STAT LAB 2019-12-15 11:47:[address] [facility] GLUCOSE-STAT LAB 2019-12-15 11:47:44 Lu Alberto [facility] HGB/HCT (H&H) - STAT LAB 2019-12-15 11:47:44 Lu Alberto [facility] POCT-ACT 2019-12-15 11:22:00 Lu Alberto [facility] BLOOD GAS, ARTERIAL 2019-12-15 11:19:25 Lu Alberto [facility] SODIUM NA-STAT LAB 2019-12-15 11:19:[address] [facility] POTASSIUM-STAT LAB 2019-12-15 11:19:[address] [facility] GLUCOSE-STAT LAB 2019-12-15 11:19:25 Lu Alberto [facility] HGB/HCT (H&H) - STAT LAB 2019-12-15 11:19:25 Lu Alberto [facility] POCT-ACT 2019-12-15 11:01:00 Lu Alberto [facility] BLOOD GAS, VENOUS 2019-12-15 10:46:20 Lu Alberto [facility] BLOOD GAS, ARTERIAL 2019-12-15 10:46:17 Lu Alberto [facility] SODIUM NA-STAT LAB 2019-12-15 10:46:17 Lu Alberto [facility] POTASSIUM-STAT LAB 2019-12-15 10:46:17 Lu Alberto [facility] GLUCOSE-STAT LAB 2019-12-15 10:46:17 Lu Alberto [facility] HGB/HCT (H&H) - STAT LAB 2019-12-15 10:46:17 Lu Alberto [facility] POCT-ACT 2019-12-15 10:30:00 Lu Alberto [facility] ANESTHESIA BERTIN 2019-12-15 09:11:37 Sadi Cintron [facility] CALCIUM, IONIZED 2019-12-15 08:34:14 Vasu Magaña [facility] BLOOD GAS, ARTERIAL 2019-12-15 08:34:14 Vasu Magaña [facility] SODIUM NA-STAT LAB 2019-12-15 08:34:14 Vasu Magaña [facility] POTASSIUM-STAT LAB 2019-12-15 08:34:14 Vasu Magaña [facility] GLUCOSE-STAT LAB 2019-12-15 08:34:14 Vasu Magaña [facility] HGB/HCT (H&H) - STAT LAB 2019-12-15 08:34:14 Vasu Magaña [facility] BYPASS,AORTO CORONARY DAVONTE/SVG 2019-12-15 07:07:00 Blanca Albertoee [facility] ENDOSCOPIC HARVEST,VEIN 2019-12-15 07:07:00 Lu Alberto [facility] TYPE AND SCREEN, AUTOMATED 2019-12-15 06:45:00 Debontjoe, [facility] POCT-GLUCOSE METER 2019-12-15 05:56:00 Lu Alberto [facility] TRANSFUSION SERVICE REPORT - SCAN 2019-12-12 18:04:57 Provid er, Default Scanning [facility] XR CHEST 2 VIEWS 2019-12-11 11:48:00 Debonte, [facility] APTT 2019-12-11 10:15:00 Debonte, [facility] COMPREHENSIVE METABOLIC PANEL 2019-12-11 10:15:00 Debonte, [facility] HEMOGLOBIN A1C 2019-12-11 10:15:00 Debonte, [facility] LIPID PANEL 2019-12-11 10:15:00 Debonte, [facility] MAGNESIUM 2019-12-11 10:15:00 Debonte, [facility] PROTHROMBIN TIME/INR 2019-12-11 10:15:00 Debonte, [facility] TYPE AND SCREEN, AUTOMATED 2019-12-11 10:15:00 Debonte, [facility] CBC W/PLT COUNT & AUTO DIFFERENTIAL 2019-12-11 10:15:00 Debonte, [facility] SARS-COV2/RT-PCR ([facility] & REF LABS) 2019-12-11 10:04:[address] [facility]AD 2019-12-11 09:55:50 Unknown, Hl7 Doctor [facility] Plan of Care Planned Activity Planned Date Details Comments Source Future Scheduled Test 2022-12-10 00:00:00 Lipid panel (proce dure) [code = 08950992] [facility] Future [facility] Test 2019-11-11 00:00:00 INFLUENZA VACCINE (#1) [code = INFLUENZA VACCINE (#1)] [facility] 2019-10-11 00:00:00 INFLUENZA VACCINE [code = INFLUENZA VACCINE] [facility] Future Scheduled Test 2008-02-20 00:00:00 BREAST CANCER SCRE ENING [code = BREAST CANCER SCREENING] [facility] Future Scheduled Test 2008-02-20 00:00:00 COLONOSCOPY SCREEN ING [code = COLONOSCOPY SCREENING] [facility] Future Scheduled Test 2008-02-20 00:00:00 SHINGLES VACCINES (#1) [code = SHINGLES VACCINES (#1)] [facility] Future Scheduled Test 1979 00:00:00 Screening for luz gnant neoplasm of cervix (procedure) [code = 595584700] [facility] Future Scheduled Test 1979 00:00:00 Screening for luz gnant neoplasm of cervix (procedure) [code = 059373148] [facility] Future Scheduled Test 1964-02-20 00:00:00 PNEUMOCOCCAL VACCI NE 0-64 YRS (1 of 1 - PPSV23) [code = PNEUMOCOCCAL VACCINE 0-64 YRS (1 of 1 - PPSV23)] [facility] Future Scheduled Test 1960 00:00:00 Screening for luz gnant neoplasm of breast (procedure) [code = 617360252] [facility] Future Scheduled Test 1960 00:00:00 Screening for luz gnant neoplasm of colon (procedure) [code = 350381966] [facility] Encounters Start Date/Time End Date/Time Encounter Type Admission Type Att[facility] Care Department Encounter ID Source 2020-01-15 01:59:00 2020-01-15 06:09:00 Emergency Keyon Burnham [facility] ([facility]) [id number] 2020-01-14 00:00:00 2020-01-14 00:00:00 Emergency MARI MI [facility] [id number] [facility] Results Test Description Test Time Test Comments Results Result Comments Source XR Abdomen 1 Vw 2020-01-14 21:48:17 Hm Interface , Radiology Results 01/14/2020 9:51 PM CSTEXAMINATION: XR ABDOMEN 1 VWHISTORY: 59 years Female constipationCOMPARISON: None.FINDINGS: The included bowel gas pattern is nor mal. There is no evidence of obstruction, pneumatosis, or organomegaly. No suspicious calcifications are seen in the abdomen or pelvis. Hyperdensity in the bladder likely reflects contrast from prior examination. The included bones are intact.IMPRESSION: No acute abnormality identified in the abdomen or pelvis.[id number] [facility] General 2020-01-14 20:48:48 Mari Mi MD 01/14/2020 11:22 PMGeneralPerformed by: Mari Mi, MDAuthorized by: Mari Mi MD Consent: Consent obtained: Verbal Consent given by: Patient Risks dis cussed: Bleeding and infectionIndications: Indications: ConstipationAnesthesia (see MAR for exact dosages): Anesthesia method: NonePost-procedure details: Patient tolerance of procedure: Tolerated well, no immediate complicationsComments: Pt did not have much stool taken out unable to grasp. [facility] CT ABDOMEN/PELVIS W 2020-01-13 23:20:00 [facility] 1960 Sex: F [place] [id number] [place] [id number] Patient Name: FABRICIO NEWELL MR #: [id number] : 1960 Age/Sex: 59/F Req #: [id number] [facility] Physician: Ordered by: Real Gracia MD Report #: [id number] Location: Room/Bed: Procedure: [id number] CT/CT ABDOMEN/PELVIS W Exam Date: 01/13/20 Exam Time: 2244 REPORT STATUS: Signed EXAM: CT Abdomen and Pelvis WITH contrast INDICATION: low mid abd pain, constipation [id number] COMPARISON: None. TECHNIQUE: Abdomen and pelvis were scanned utilizing a multidetector helical scanner from the lung base to the pubic symphysis after administration of IV contrast. Coronal and sagittal reformations were obtained. Dose modulation, iterative reconstruction, and/or weight based adjustment of the mA/kV was utilized to reduce the radiation dose to as low as reasonably achievable. Routine protocol was performed. Scan was performed when during portal venous phase. IV CONTRAST: 100 mL of Isovue-370 ORAL CONTRAST: Gastroview COMPLICATIONS: None RADIATION DOSE: Total DLP: 648.51 mGy*cm Estimated effective dose: (DLP x 0.015 x size factor) mSv CTDIvol has been reviewed. It is below the limits set by the Radiation Protocol Committee (RPC). FINDINGS: LINES and TUBES: None. LOWER THORAX: Unremarkable. Partially seen median sternotomy wires. HEPATOBILIARY: No focal hepatic lesions. No biliary ductal dilation. GALLBLADDER: No radio-opaque stones or sludge. No wall thickening. SPLEEN: No splenomegaly. PANCREAS: No focal masses or ductal dilatation. ADRENALS: No adrenal nodules KIDNEYS/URETERS: Kidneys enhance symmetrically. No hydronephrosis. No cystic or solid mass lesions. No stones. GI TRACT: No abnormal distention, wall thickening, or evidence of bowel obstruction. Stool throughout the colon. Appendix is normal. PELVIC ORGANS/BLADDER: Unremarkable. LYMPH NODES: No lymphadenopathy. VESSELS: Unremarkable. PERITONEUM / RETROPERITONEUM: No free air or fluid. BONES: Generalized demineralization. Lower lumbar spine degenerative changes and facet arthropathy. Grade 1 L5-S1 spondylolisthesis. SOFT TISSUES: Abdominal wall subcutaneous nodules, likely injection related. IMPRESSION: 1. No acute inflammatory process in the abdomen/pelvis. 2. Moderate colonic stool burden, consistent with history of constipation. Signed by: Dr. Frederick Hudson MD on 01/13/2020 11:28 PM Dictated By: FREDERICK HUDSON MD 27 Transcribed By: RAINA on 01/13/202327 COPY TO: REAL GRACIA MD Basic Metabolic Panel 2019-12-24 06:27:00 Test Item Sodium (test code = 2951-2) 139 meq/L 136-145 Potassium (test code = 2823-3) 3.9 meq/L 3.5-5.1 Chloride (test code = 2075-0) 104 meq/L 98-107 CO2 (test code = 8-9) 26 meq/L 22-29 BUN (test code = 3094-0) 14 mg/dL 7-21 Creatinine (test code = 2160-0) 0.68 mg/dL 0.57-1.25 Glucose (test code = 2345-7) 119 mg/dL 70-105 H Calcium (test code = 87722-6) 8.5 mg/dL 8.4-10.2 EGFR (test code = 87072-5) 88 mL/min/1.73 sq m ESTIMATED GFR IS NOT ACCURATE CREATININE CLEARANCE IN PREDICTING GLOMERULAR FILTRATION RATE. ESTIMATED GFR IS NOT APPLICABLE FOR DIALYSIS PATIENTS. DEJA (test code = DEJA) Fork Repairer ID - SHANIQUA M Lab Interpretation (test code = 20902-8) Abnormal [facility] 06:27:00* Test Item Value Reference Range Interpretation Comments Magnesium (test code = 08276-0) 1.8 mg/dL 1.6-2.6 DEJA (test code = DEJA) Fork Repairer ID - SHANIQUA M Lab Interpretation (test code = 79039-1) Normal [facility]OL[facility] [id number] 06:27:00* Test Item Value Reference Range Interpretation Comments SODIUM (BEAKER) (test code = 381) 139 meq/L 136-145 POTASSIUM (BEAKER) (test code = 379) 3.9 meq/L 3.5-5.1 CHLORIDE (BEAKER) (test code = 382) 104 meq/L 98-107 CO2 (BEAKER) (test code = 355) 26 meq/L 22-29 BLOOD UREA NITROGEN (BEAKER) (test code = 354) 14 mg/dL 7-21 CREATININE (BEAKER) (test code = 358) 0.68 mg/dL 0.57-1.25 GLUCOSE RANDOM (BEAKER) (test code = 652) 119 mg/dL 70-105 H CALCIUM (BEAKER) (test code = 697) 8.5 mg/dL 8.4-10.2 EGFR (BEAKER) (test code = 1092) 88 mL/min/1.73 sq m ESTIMATED GFR IS NOT ACCURATE CREATININE CLEARANCE IN PREDICTING GLOMERULAR FILTRATION RATE. ESTIMATED GFR IS NOT APPLICABLE FOR DIALYSIS PATIENTS. Fork Repairer ID - SHANIQUA [id number] 06:27:00* Test Item Value Reference Range Interpretation Comments MAGNESIUM (BEAKER) (test code = 627) 1.8 mg/dL 1.6-2.6 Fork Repairer ID - SHANIQUA [facility]BC (Hemogram only)2019-12-24 05:54:00* Test Item Value Reference Range Interpretation Comments WBC (test code = 6690-2) 7.0 3.5- 10.5 K/L RBC (test code = 789-8) 3.05 3.93- 5.22 M/L L MCHC (test code = 786-4) 30.7 32.2- 35.5 GM/DL L Hematocrit (test code = 4544-3) 28.7 % 34.1-44.9 L MCV (test code = 787-2) 94.1 fL 79.4-94.8 MCH (test code = 785-6) 28.9 pg 25.6-32.2 RDW (test code = 788-0) 15.0 % 11.7-14.4 H Platelets (test code = 777-3) 326 150- 450 K/CU MM MPV (test code = 96117-2) 10.7 fL 9.4-12.3 nRBC (test code = 413) 0 0- 0 /100 WBC Lab Interpretation (test code = 81975-5) Abnormal [facility] (HEMOGRAM ONLY)2019-12-24 05:54:00* Test Item Value Reference Range Interpretation Comments WHITE BLOOD CELL COUNT (BEAKER) (test code = 775) 7.0 K/ L 3.5- 10.5 RED BLOOD CELL COUNT (BEAKER) (test code = 761) 3.05 M/ L 3.93-5 .22 L HEMOGLOBIN (BEAKER) (test code = 410) 8.8 GM/DL 11.2-15.7 L HEMATOCRIT (BEAKER) (test code = 411) 28.7 % 34.1-44.9 L MEAN CORPUSCULAR VOLUME (BEAKER) (test code = 753) 94.1 fL 79. 4-94.8 MEAN CORPUSCULAR HEMOGLOBIN (BEAKER) (test code = 751) 28.9 pg 25.6-32.2 MEAN CORPUSCULAR HEMOGLOBIN CONC (BEAKER) (test code = 752) 30.7 GM/DL 32.2-35.5 L RED CELL DISTRIBUTION WIDTH (BEAKER) (test code = 412) 15.0 % 11.7-14.4 H PLATELET COUNT (BEAKER) (test code = 756) 326 K/CU MM 150-450 MEAN PLATELET VOLUME (BEAKER) (test code = 754) 10.7 fL 9.4-12 .3 NUCLEATED RED BLOOD CELLS (BEAKER) (test code = 413) 0 /100 WBC 0 -0 BASIC METABOLIC [id number] 06:24:00* Test Item Value Reference Range Interpretation Comments SODIUM (BEAKER) (test code = 381) 142 meq/L 136-145 POTASSIUM (BEAKER) (test code = 379) 4.0 meq/L 3.5-5.1 CHLORIDE (BEAKER) (test code = 382) 105 meq/L 98-107 CO2 (BEAKER) (test code = 355) 27 meq/L 22-29 BLOOD UREA NITROGEN (BEAKER) (test code = 354) 17 mg/dL 7-21 CREATININE (BEAKER) (test code = 358) 0.68 mg/dL 0.57-1.25 GLUCOSE RANDOM (BEAKER) (test code = 652) 97 mg/dL 70-105 CALCIUM (BEAKER) (test code = 697) 8.2 mg/dL 8.4-10.2 L EGFR (BEAKER) (test code = 1092) 88 mL/min/1.73 sq m ESTIMATED GFR IS NOT ACCURATE CREATININE CLEARANCE IN PREDICTING GLOMERULAR FILTRATION RATE. ESTIMATED GFR IS NOT APPLICABLE FOR DIALYSIS PATIENTS. Fork Repairer ID - [id number] 06:24:00* Test Item Value Reference Range Interpretation Comments MAGNESIUM (BEAKER) (test code = 627) 1.9 mg/dL 1.6-2.6 Fork Repairer ID - EDASICBC (HEMOGRAM ONLY)2019-12-23 05:31:00* Test Item Value Reference Range Interpretation Comments WHITE BLOOD CELL COUNT (BEAKER) (test code = 775) 6.9 K/ L 3.5- 10.5 RED BLOOD CELL COUNT (BEAKER) (test code = 761) 2.97 M/ L 3.93-5 .22 L HEMOGLOBIN (BEAKER) (test code = 410) 8.6 GM/DL 11.2-15.7 L HEMATOCRIT (BEAKER) (test code = 411) 27.7 % 34.1-44.9 L MEAN CORPUSCULAR VOLUME (BEAKER) (test code = 753) 93.3 fL 79. 4-94.8 MEAN CORPUSCULAR HEMOGLOBIN (BEAKER) (test code = 751) 29.0 pg 25.6-32.2 MEAN CORPUSCULAR HEMOGLOBIN CONC (BEAKER) (test code = 752) 31.0 GM/DL 32.2-35.5 L RED CELL DISTRIBUTION WIDTH (BEAKER) (test code = 412) 15.0 % 11.7-14.4 H PLATELET COUNT (BEAKER) (test code = 756) 294 K/CU MM 150-450 MEAN PLATELET VOLUME (BEAKER) (test code = 754) 10.4 fL 9.4-12 .3 NUCLEATED RED BLOOD CELLS (BEAKER) (test code = 413) 0 /100 WBC 0 -0 BASIC METABOLIC [id number] 05:19:00* Test Item Value Reference Range Interpretation Comments SODIUM (BEAKER) (test code = 381) 142 meq/L 136-145 POTASSIUM (BEAKER) (test code = 379) 4.3 meq/L 3.5-5.1 CHLORIDE (BEAKER) (test code = 382) 106 meq/L 98-107 CO2 (BEAKER) (test code = 355) 27 meq/L 22-29 BLOOD UREA NITROGEN (BEAKER) (test code = 354) 18 mg/dL 7-21 CREATININE (BEAKER) (test code = 358) 0.63 mg/dL 0.57-1.25 GLUCOSE RANDOM (BEAKER) (test code = 652) 95 mg/dL 70-105 CALCIUM (BEAKER) (test code = 697) 8.0 mg/dL 8.4-10.2 L EGFR (BEAKER) (test code = 1092) 96 mL/min/1.73 sq m ESTIMATED GFR IS NOT ACCURATE CREATININE CLEARANCE IN PREDICTING GLOMERULAR FILTRATION RATE. ESTIMATED GFR IS NOT APPLICABLE FOR DIALYSIS PATIENTS. Fork Repairer ID - SHANIQUA [id number] 05:19:00* Test Item Value Reference Range Interpretation Comments MAGNESIUM (BEAKER) (test code = 627) 1.8 mg/dL 1.6-2.6 Fork Repairer ID - SHANIQUA [facility] (HEMOGRAM ONLY)2019-12-22 04:40:00* Test Item Value Reference Range Interpretation Comments WHITE BLOOD CELL COUNT (BEAKER) (test code = 775) 7.1 K/ L 3.5- 10.5 RED BLOOD CELL COUNT (BEAKER) (test code = 761) 2.89 M/ L 3.93-5 .22 L HEMOGLOBIN (BEAKER) (test code = 410) 8.4 GM/DL 11.2-15.7 L HEMATOCRIT (BEAKER) (test code = 411) 27.3 % 34.1-44.9 L MEAN CORPUSCULAR VOLUME (BEAKER) (test code = 753) 94.5 fL 79. 4-94.8 MEAN CORPUSCULAR HEMOGLOBIN (BEAKER) (test code = 751) 29.1 pg 25.6-32.2 MEAN CORPUSCULAR HEMOGLOBIN CONC (BEAKER) (test code = 752) 30.8 GM/DL 32.2-35.5 L RED CELL DISTRIBUTION WIDTH (BEAKER) (test code = 412) 14.7 % 11.7-14.4 H PLATELET COUNT (BEAKER) (test code = 756) 259 K/CU MM 150-450 MEAN PLATELET VOLUME (BEAKER) (test code = 754) 11.2 fL 9.4-12 .3 NUCLEATED RED BLOOD CELLS (BEAKER) (test code = 413) 0 /100 WBC 0 -0 BASIC METABOLIC [id number] 04:17:00* Test Item Value Reference Range Interpretation Comments SODIUM (BEAKER) (test code = 381) 143 meq/L 136-145 POTASSIUM (BEAKER) (test code = 379) 3.7 meq/L 3.5-5.1 CHLORIDE (BEAKER) (test code = 382) 107 meq/L 98-107 CO2 (BEAKER) (test code = 355) 30 meq/L 22-29 H BLOOD UREA NITROGEN (BEAKER) (test code = 354) 24 mg/dL 7-21 H CREATININE (BEAKER) (test code = 358) 0.64 mg/dL 0.57-1.25 GLUCOSE RANDOM (BEAKER) (test code = 652) 95 mg/dL 70-105 CALCIUM (BEAKER) (test code = 697) 7.9 mg/dL 8.4-10.2 L EGFR (BEAKER) (test code = 1092) 94 mL/min/1.73 sq m ESTIMATED GFR IS NOT ACCURATE CREATININE CLEARANCE IN PREDICTING GLOMERULAR FILTRATION RATE. ESTIMATED GFR IS NOT APPLICABLE FOR DIALYSIS PATIENTS. Fork Repairer ID Winsome AUGUSTINE [id number] 04:01:00* Test Item Value Reference Range Interpretation Comments MAGNESIUM (BEAKER) (test code = 627) 2.0 mg/dL 1.6-2.6 Fork Repairer ID Winsome AUGUSTINE LCBC (HEMOGRAM ONLY)2019-12-21 03:31:00* Test Item Value Reference Range Interpretation Comments WHITE BLOOD CELL COUNT (BEAKER) (test code = 775) 6.1 K/ L 3.5- 10.5 RED BLOOD CELL COUNT (BEAKER) (test code = 761) 2.83 M/ L 3.93-5 .22 L HEMOGLOBIN (BEAKER) (test code = 410) 8.4 GM/DL 11.2-15.7 L HEMATOCRIT (BEAKER) (test code = 411) 27.0 % 34.1-44.9 L MEAN CORPUSCULAR VOLUME (BEAKER) (test code = 753) 95.4 fL 79. 4-94.8 H MEAN CORPUSCULAR HEMOGLOBIN (BEAKER) (test code = 751) 29.7 pg 25.6-32.2 MEAN CORPUSCULAR HEMOGLOBIN CONC (BEAKER) (test code = 752) 31.1 GM/DL 32.2-35.5 L RED CELL DISTRIBUTION WIDTH (BEAKER) (test code = 412) 14.9 % 11.7-14.4 H PLATELET COUNT (BEAKER) (test code = 756) 244 K/CU MM 150-450 MEAN PLATELET VOLUME (BEAKER) (test code = 754) 10.6 fL 9.4-12 .3 NUCLEATED RED BLOOD CELLS (BEAKER) (test code = 413) 0 /100 WBC 0 -0 BASIC METABOLIC [id number] 05:31:00* Test Item Value Reference Range Interpretation Comments SODIUM (BEAKER) (test code = 381) 142 meq/L 136-145 POTASSIUM (BEAKER) (test code = 379) 3.4 meq/L 3.5-5.1 L CHLORIDE (BEAKER) (test code = 382) 105 meq/L 98-107 CO2 (BEAKER) (test code = 355) 29 meq/L 22-29 BLOOD UREA NITROGEN (BEAKER) (test code = 354) 26 mg/dL 7-21 H CREATININE (BEAKER) (test code = 358) 0.62 mg/dL 0.57-1.25 GLUCOSE RANDOM (BEAKER) (test code = 652) 90 mg/dL 70-105 CALCIUM (BEAKER) (test code = 697) 7.9 mg/dL 8.4-10.2 L EGFR (BEAKER) (test code = 1092) 98 mL/min/1.73 sq m ESTIMATED GFR IS NOT ACCURATE CREATININE CLEARANCE IN PREDICTING GLOMERULAR FILTRATION RATE. ESTIMATED GFR IS NOT APPLICABLE FOR DIALYSIS PATIENTS. [id number] 05:30:00* Test Item Value Reference Range Interpretation Comments MAGNESIUM (BEAKER) (test code = 627) 1.9 mg/dL 1.6-2.6 CBC (HEMOGRAM ONLY)2019-12-20 04:54:00* Test Item Value Reference Range Interpretation Comments WHITE BLOOD CELL COUNT (BEAKER) (test code = 775) 5.6 K/ L 3.5- 10.5 RED BLOOD CELL COUNT (BEAKER) (test code = 761) 2.60 M/ L 3.93-5 .22 L HEMOGLOBIN (BEAKER) (test code = 410) 7.8 GM/DL 11.2-15.7 L HEMATOCRIT (BEAKER) (test code = 411) 24.5 % 34.1-44.9 L MEAN CORPUSCULAR VOLUME (BEAKER) (test code = 753) 94.2 fL 79. 4-94.8 MEAN CORPUSCULAR HEMOGLOBIN (BEAKER) (test code = 751) 30.0 pg 25.6-32.2 MEAN CORPUSCULAR HEMOGLOBIN CONC (BEAKER) (test code = 752) 31.8 GM/DL 32.2-35.5 L RED CELL DISTRIBUTION WIDTH (BEAKER) (test code = 412) 14.9 % 11.7-14.4 H PLATELET COUNT (BEAKER) (test code = 756) 201 K/CU MM 150-450 MEAN PLATELET VOLUME (BEAKER) (test code = 754) 10.8 fL 9.4-12 .3 NUCLEATED RED BLOOD CELLS (BEAKER) (test code = 413) 0 /100 WBC 0 -0 FL, ESOPH, SWALLOW FUNCTION, WITH CINE OR [id number] 11:33:00Reason for exam:->Dysphagia with aspirationFINAL REPORT Modified barium swallow exam with speech pathology service CLINICAL HISTORY: Dysphagia with aspiration IMPRESSION: Please see the speech pathology service report for details. Barium contrast of multiple consistencies is given to the patient to swallow. Fluoroscopic observation is performed during swallowing. No aspiration is identified. Fluoro time: 1.1 minutes Number of images: 5 Signed: Effie Solorioort Verified Date/Time: 12/19/2019 11:33:45 Reading Location: [facility] C013X Ortho Consult Reading Room esoph swallow funct with cine [id number] 11:33:00 Interface, External Ris In - 12/19/2019 11:35 AM CDTFINAL REPORT PATIENT ID: [id number] Modified barium swallow exam with speech pathology service CLINICAL HIS TORY: Dysphagia with aspiration IMPRESSION: Please see the speech pathology serv ice report for details. Barium contrast of multiple consistencies is given to th e patient to swallow. Fluoroscopic observation is performed during swallowing. N o aspiration is identified. Fluoro time: 1.1 minutes Number of images: 5 Signed : Effie Solorio MDReport Verified Date/Time: 12/19/2019 11:33:45 Reading Location: [place] [address] C013X Ortho Consult Reading Room [facility] 05:33:00* Test Item Value Reference Range Interpretation Comments MAGNESIUM (BEAKER) (test code = 627) 2.0 mg/dL 1.6-2.6 Fork Repairer ID - EDASIBASIC METABOLIC [id number] 05:33:00* Test Item Value Reference Range Interpretation Comments SODIUM (BEAKER) (test code = 381) 143 meq/L 136-145 POTASSIUM (BEAKER) (test code = 379) 3.6 meq/L 3.5-5.1 CHLORIDE (BEAKER) (test code = 382) 106 meq/L 98-107 CO2 (BEAKER) (test code = 355) 29 meq/L 22-29 BLOOD UREA NITROGEN (BEAKER) (test code = 354) 25 mg/dL 7-21 H CREATININE (BEAKER) (test code = 358) 0.57 mg/dL 0.57-1.25 GLUCOSE RANDOM (BEAKER) (test code = 652) 90 mg/dL 70-105 CALCIUM (BEAKER) (test code = 697) 8.2 mg/dL 8.4-10.2 L EGFR (BEAKER) (test code = 1092) 108 mL/min/1.73 sq m ESTIMATED GFR IS NOT ACCURATE CREATININE CLEARANCE IN PREDICTING GLOMERULAR FILTRATION RATE. ESTIMATED GFR IS NOT APPLICABLE FOR DIALYSIS PATIENTS. Fork Repairer ID - EDASICBC (HEMOGRAM ONLY)2019-12-19 05:08:00* Test Item Value Reference Range Interpretation Comments WHITE BLOOD CELL COUNT (BEAKER) (test code = 775) 6.8 K/ L 3.5- 10.5 RED BLOOD CELL COUNT (BEAKER) (test code = 761) 2.65 M/ L 3.93-5 .22 L HEMOGLOBIN (BEAKER) (test code = 410) 7.8 GM/DL 11.2-15.7 L HEMATOCRIT (BEAKER) (test code = 411) 24.6 % 34.1-44.9 L MEAN CORPUSCULAR VOLUME (BEAKER) (test code = 753) 92.8 fL 79. 4-94.8 MEAN CORPUSCULAR HEMOGLOBIN (BEAKER) (test code = 751) 29.4 pg 25.6-32.2 MEAN CORPUSCULAR HEMOGLOBIN CONC (BEAKER) (test code = 752) 31.7 GM/DL 32.2-35.5 L RED CELL DISTRIBUTION WIDTH (BEAKER) (test code = 412) 15.3 % 11.7-14.4 H PLATELET COUNT (BEAKER) (test code = 756) 169 K/CU MM 150-450 MEAN PLATELET VOLUME (BEAKER) (test code = 754) 10.9 fL 9.4-12 .3 NUCLEATED RED BLOOD CELLS (BEAKER) (test code = 413) 0 /100 WBC 0 -0 RAD, CHEST, 1 VIEW, NON [id number] 04:46:00Reason for exam:->post op/ ct removalShould this be performed at the bedside?->YesFINAL REPORT RAD, CHEST, 1 VIEW, NON DEPT INDICATION: post op/ ct removal COMPARISON: Prior day's exam FINDINGS: Portable frontal view of the chest. IMPRESSION: Support Lines: The chest tubes have been removed. Lungs and pleura: Mild bibasilar subsegmental atelectasis. No consolidation or sizable effusion. There is decreased size of the previous trace bilateral apical pne umothoraces.Heart and mediastinum: Stable contours.Additional findings: None. Si gned: Sadi Connolly MDReport Verified Date/Time: 12/19/2019 04:46:32 Elec tronically signed by: SADI CONNOLLY MD on 12/19/2019 04:46 AM XR chest 1 view portable / [id number] 04:46:00Interface, External Ris In - 12/19/2019 4:48 AM CDTFINAL REPORT RAD, CHEST, 1 VIEW, NON DEPT INDICATION: post op/ ct removal COMPARISON: Prior day's exam FINDINGS: Portable frontal view of the chest. IMPRESSION: Support Lines: The chest tubes have been removed. Lungs and pleura: Mild bibasilar subsegmental atelectasis. No consolidation or sizable effusion. There is decreased size of the previous trace bilateral apical pneumothoraces.Heart and mediastinum: Stable contours.Additional findings: None. Signed: Sadi Connolly Verified Date/Time: 12/19/2019 04:46:32 [facility] Leuk[facility]Red RBC 2019-12-19 04:00:00* Test Item Value Reference Range Interpretation Comments CROSSMATCH (test code = 2264) COMPATIBLE Unit ABO (test code = 0735487) A Pos UNIT NUMBER (test code = 934-0) [id number] Status (test code = 8611120) WORK IN PROGRESS Blood Bank Product (test code = 2263) RED BLOOD CELLS PRODUCT CODE (test code = 933-2) [id number] [facility]Glucose [id number] 17:16:00* Test Item Value Reference Range Interpretation Comments POC-Glucose Meter (test code = 1538) 97 mg/dL 70-110 : TESTED AT [address], [address]: Fork Repairer/Firebreak Cutter ID = [id number] for TISHA SHEEHAN Lab Interpretation (test code = 38702-0) Normal [facility]GLUCOSE [id number] 17:16:00* Test Item Value Reference Range Interpretation Comments POC-GLUCOSE METER (BEAKER) (test code = 1538) 97 mg/dL 70-110 : TESTED AT [address], [address]: Fork Repairer/Firebreak Cutter ID = [id number] for TISHA SHEEHAN POCT-GLUCOSE [id number] 13:06:00* Test Item Value Reference Range Interpretation Comments POC-GLUCOSE METER (BEAKER) (test code = 1538) 87 mg/dL 70-110 : TESTED AT [address], [address]: Fork Repairer/Firebreak Cutter ID = [id number] for TISHA SHEEHAN SARS-CoV2/RT-PCR (Asymptomatic ONLY)2019-12-18 11:49:00* Test Item Value Reference Range Interpretation Comments SARS-COV2/RT-PCR (test code = 63749-4) Negative N ot Detected, Negative, See external report for linked test SARS-COV-2 PERFORMING LAB (test code = 06827-3) [facility] DEJA (test code = DEJA) Negative result for this homar t determines that SARS-CoV-2 RNA was not present in the specimen above the Limit of Detection (LOD). However, Negative results do not preclude SARS-CoV-2 infection and should not be used as the sole basis for treatment or patient management decisions. Negative results must be combined with clinical observations, patient history, and epidemiological information. A false negative result may occur if a specimen is improperly collected, transported or handled. A false negative result should be considered if patient's recent exposures or clinical presentation indicate that COVID-19 (SARS-CoV-2) is likely and diagnostic tests for other causes of illness are negative. Re-testing should be considered in cases of suspected false negatives. The limit of detection for this assay is 800 copies/mL. This SARS CoV-2 test is a real-time RT-PCR test intended for the qualitative detection of nucleic acid from SARS-CoV-2 in a nasopharyngeal swab specimen collected from individuals suspected of COVID-19 by their healthcare provider. This test has not been Food and Drug Administration (FDA) cleared or approved. This is a modified version of an approved Emergency Use Authorization (EUA) and is in the process of review by the FDA. Once authorized by the FDA, the issued EUA will be effective until the declaration that circumstances exist justifying the authorization of the emergency use of in vitro diagnostic tests for detection and/or diagnosis of COVID-19 is terminated under Section 564(b)(2) of the Act or the EUA is revoked under Section 564(g) of the Act. Fact Sheet for Healthcare Providers:https://www.[employer].com/sites/default/files/product/documents/Fact_Shee f_CD_Djpthrncf_Ldlf_HBWQ-PwZ-0.pdf Fact Sheet for Healthcare Patients:https://www.[employer].com/sites/default/files/pro duct/documents/Bhdz_Ndntg_Ncjsmfzl_Ibzg_RUPE-TnC-4.pdf Performing Laboratory:[facility] [place], [place] [id number] [place], [place] [address]ARS-COV2/RT-PCR ([facility])2019-12-18 11:49:00* Test Item Value Reference Range Interpretation Comments SARS-COV2/RT-PCR (test code = 6731440) Negative N ot Detected, Negative, See external report for linked test SARS-COV-2 PERFORMING LAB (test code = 5666547) [facility] Negative result for this test determines that SARS-CoV-2 RNA was not present in the specimen above the Limit of Detection (LOD). However, Negative results do n ot preclude SARS-CoV-2 infection and should not be used as the sole basis for tr eatment or patient management decisions. Negative results must be combined with clinical observations, patient history, and epidemiological information. A false negative result may occur if a specimen is improperly collected, transported or handled. A false negative result should be considered if patient's recent expo sures or clinical presentation indicate that COVID-19 (SARS-CoV-2) is likely and diagnostic tests for other causes of illness are negative. Re-testing should be considered in cases of suspected false negatives.The limit of detection for this assay is 800 copies/mL.This SARS CoV-2 test is a real-time RT-PCR test intended for the qualitative detection of nucleic acid from SARS-CoV-2 in a nasopharyn geal swab specimen collected from individuals suspected of COVID-19 by their [facility] provider.This test has not been Food and Drug Administration (FDA) clear ed or approved. This is a modified version of an approved Emergency Use Authori zation (EUA) and is in the process of review by the FDA. Once authorized by [facility] FDA, the issued EUA will be effective until the declaration that circumstances exist justifying the authorization of the emergency use of in vitro diagnostic tests for detection and/or diagnosis of COVID-19 is terminated under Section 564 (b)(2) of the Act or the EUA is revoked under Section 564(g) of the Act.Fact She et for Healthcare Providers:https://www.[employer]/sites/default/files/product/d ocuments/Rhbu_Acrnq_RT_Molgxsies_Krxa_JCUO-XjM-9.pdfFact Sheet for Healthcare Pa brenda:https://www.[employer].com/sites/default/files/product/documents/Fact_Sheet_P tbhhoyq_Cjyt_XVQK-EqW-5.pdfPerforming Laboratory:[facility] [address] [facility].[place], [place] [address]JIXG-PFRYYCT [id number] 07:35:00* Test Item Value Reference Range Interpretation Comments POC-GLUCOSE METER (BEAKER) (test code = 1538) 78 mg/dL 70-110 : TESTED AT [facility] [address] [facility], [address]: Fork Repairer/Firebreak Cutter ID = [id number] for TISHA SHEEHAN [id number] 06:42:00* Test Item Value Reference Range Interpretation Comments MAGNESIUM (BEAKER) (test code = 627) 2.0 mg/dL 1.6-2.6 Fork Repairer ID - SHANIQUA MBASIC METABOLIC [id number] 06:42:00* Test Item Value Reference Range Interpretation Comments SODIUM (BEAKER) (test code = 381) 142 meq/L 136-145 POTASSIUM (BEAKER) (test code = 379) 3.7 meq/L 3.5-5.1 CHLORIDE (BEAKER) (test code = 382) 107 meq/L 98-107 CO2 (BEAKER) (test code = 355) 27 meq/L 22-29 BLOOD UREA NITROGEN (BEAKER) (test code = 354) 25 mg/dL 7-21 H CREATININE (BEAKER) (test code = 358) 0.64 mg/dL 0.57-1.25 GLUCOSE RANDOM (BEAKER) (test code = 652) 87 mg/dL 70-105 CALCIUM (BEAKER) (test code = 697) 8.0 mg/dL 8.4-10.2 L EGFR (BEAKER) (test code = 1092) 94 mL/min/1.73 sq m ESTIMATED GFR IS NOT ACCURATE CREATININE CLEARANCE IN PREDICTING GLOMERULAR FILTRATION RATE. ESTIMATED GFR IS NOT APPLICABLE FOR DIALYSIS PATIENTS. Fork Repairer LORIE MCGOVERN MECG 12 [id number] 06:35:50Interface, External Ris In - 12/18/2019 6:35 AM CDTVentricular Rate 85 BPMAtrial Rate 85 BPMP-R Interval 154 msQRS Duration 78 msQ-T Interval 364 msQTC Calculation(Karyn) 433 msP [place] 53 degreesR [place] -1 degreesT [place] 16 degreesNormal sinus rhythmST elevation, consider early repolarization, pericarditis, or injuryAbnormal ECGWhen compared with ECG of 11-DEC-2019 09:55,Significant changes have occurredConfirmed by MD CLARA, EMIGDIO Diamond ([id number]) on 12/18/2019 6:35:49 [facility]18 05:54:00* Test Item Value Reference Range Interpretation Comments WHITE BLOOD CELL COUNT (BEAKER) (test code = 775) 8.4 K/ L 3.5- 10.5 RED BLOOD CELL COUNT (BEAKER) (test code = 761) 2.62 M/ L 3.93-5 .22 L HEMOGLOBIN (BEAKER) (test code = 410) 7.8 GM/DL 11.2-15.7 L HEMATOCRIT (BEAKER) (test code = 411) 24.4 % 34.1-44.9 L MEAN CORPUSCULAR VOLUME (BEAKER) (test code = 753) 93.1 fL 79. 4-94.8 MEAN CORPUSCULAR HEMOGLOBIN (BEAKER) (test code = 751) 29.8 pg 25.6-32.2 MEAN CORPUSCULAR HEMOGLOBIN CONC (BEAKER) (test code = 752) 32.0 GM/DL 32.2-35.5 L RED CELL DISTRIBUTION WIDTH (BEAKER) (test code = 412) 15.9 % 11.7-14.4 H PLATELET COUNT (BEAKER) (test code = 756) 144 K/CU MM 150-450 L MEAN PLATELET VOLUME (BEAKER) (test code = 754) 11.4 fL 9.4-12 .3 NUCLEATED RED BLOOD CELLS (BEAKER) (test code = 413) 0 /100 WBC 0 -0 Calcium, [id number] 05:19:00* Test Item Value Reference Range Interpretation Comments Calcium, Ion (test code = 1993-) 1.12 mmol/L 1.12-1.27 pH, Blood (test code = 24977-1) 7.37 [facility], [id number] 05:19:00* Test Item Value Reference Range Interpretation Comments CALCIUM IONIZED (BEAKER) (test code = 698) 1.12 mmol/L 1.12-1.27 PH, BLOOD (BEAKER) (test code = 1810) 7.37 RAD, CHEST, 1 VIEW, NON [id number] 05:19:00while patient is intubated or has chest tubes.Reason for exam:->Status post CV SurgeryShould this be performed at the bedside?->YesFINAL REPORT Chest one view. Clinical history: Status post CV Surgery Comparison: Chest radiograph 12/17/2019. Technique: A single frontal view of the chest was obtained. Findings:There are bilateral chest tubes and a mediastinal drain. The patient is status post median sternotomy and CABG.The cardiomediastinal contours are stable. There are small biapical pneumothoraces. There is mild bibasilar subsegmental and discoid atelectasis. There is no definite pleural effusion. There is no pulmonary edema. Signed: Elyssa Brown MDReport Verified Date/Time: 12/18/2019 05:19:49 - GLUCOSE [id number] 22:22:00* Test Item Value Reference Range Interpretation Comments POC-GLUCOSE METER (JASPREET) (test code = 1538) 85 mg/dL 70-110 : TESTED AT [address], [address]: Fork Repairer/Firebreak Cutter ID = [id number] for Pepper Guillermo CBC with platelet count + automated [id number] 18:51:00* Test Item Value Reference Range Interpretation Comments WBC (test code = 6690-2) 10.5 3.5- 10.5 K/L RBC (test code = 789-8) 2.71 3.93- 5.22 M/L L MCHC (test code = 786-4) 32.3 32.2- 35.5 GM/DL L Hematocrit (test code = 4544-3) 24.8 % 34.1-44.9 L MCV (test code = 787-2) 91.5 fL 79.4-94.8 MCH (test code = 785-6) 29.5 pg 25.6-32.2 RDW (test code = 788-0) 15.5 % 11.7-14.4 H Platelets (test code = 777-3) 147 150- 450 K/CU MM L MPV (test code = 74400-9) 10.7 fL 9.4-12.3 nRBC (test code = 413) 0 0- 0 /100 WBC % Neutros (test code = 429) 79 % % Lymphs (test code = 430) 12 % % Monos (test code = 431) 7 % % Eos (test code = 432) 0 % % Baso (test code = 437) 0 % # Neutros (test code = 670) 8.30 1.56- 6.13 K/L H # Lymphs (test code = 414) 1.24 1.18- 3.74 K/L # Monos (test code = 415) 0.78 0.24- 0.36 K/L H # Eos (test code = 416) 0.03 0.04- 0.36 K/L L # Baso (test code = 417) 0.02 0.01- 0.08 K/L Immature Granulocytes-Relative (test code = 2801) 1 % 0-1 Lab Interpretation (test code = 64235-7) Abnormal [facility] W/PLT COUNT & AUTO [id number] 18:51:00* Test Item Value Reference Range Interpretation Comments WHITE BLOOD CELL COUNT (BEAKER) (test code = 775) 10.5 K/ L 3.5- 10.5 RED BLOOD CELL COUNT (BEAKER) (test code = 761) 2.71 M/ L 3.93-5 .22 L HEMOGLOBIN (BEAKER) (test code = 410) 8.0 GM/DL 11.2-15.7 L HEMATOCRIT (BEAKER) (test code = 411) 24.8 % 34.1-44.9 L MEAN CORPUSCULAR VOLUME (BEAKER) (test code = 753) 91.5 fL 79. 4-94.8 MEAN CORPUSCULAR HEMOGLOBIN (BEAKER) (test code = 751) 29.5 pg 25.6-32.2 MEAN CORPUSCULAR HEMOGLOBIN CONC (BEAKER) (test code = 752) 32.3 GM/DL 32.2-35.5 RED CELL DISTRIBUTION WIDTH (BEAKER) (test code = 412) 15.5 % 11.7-14.4 H PLATELET COUNT (BEAKER) (test code = 756) 147 K/CU MM 150-450 L MEAN PLATELET VOLUME (BEAKER) (test code = 754) 10.7 fL 9.4-12 .3 NUCLEATED RED BLOOD CELLS (BEAKER) (test code = 413) 0 /100 WBC 0 -0 NEUTROPHILS RELATIVE PERCENT (BEAKER) (test code = 429) 79 % LYMPHOCYTES RELATIVE PERCENT (BEAKER) (test code = 430) 12 % MONOCYTES RELATIVE PERCENT (BEAKER) (test code = 431) 7 % EOSINOPHILS RELATIVE PERCENT (BEAKER) (test code = 432) 0 % BASOPHILS RELATIVE PERCENT (BEAKER) (test code = 437) 0 % NEUTROPHILS ABSOLUTE COUNT (BEAKER) (test code = 670) 8.30 K/ L 1.56-6.13 H LYMPHOCYTES ABSOLUTE COUNT (BEAKER) (test code = 414) 1.24 K/ L 1.18-3.74 MONOCYTES ABSOLUTE COUNT (BEAKER) (test code = 415) 0.78 K/ L 0. 24-0.36 H EOSINOPHILS ABSOLUTE COUNT (BEAKER) (test code = 416) 0.03 K/ L 0.04-0.36 L BASOPHILS ABSOLUTE COUNT (BEAKER) (test code = 417) 0.02 K/ L 0. 01-0.08 IMMATURE GRANULOCYTES-RELATIVE PERCENT (BEAKER) (test code = 2801) 1 % 0-1 POCT-GLUCOSE [id number] 17:51:00* Test Item Value Reference Range Interpretation Comments POC-GLUCOSE METER (BEAKER) (test code = 1538) 92 mg/dL 70-110 : TESTED AT [address], [address]: Fork Repairer/Firebreak Cutter ID = [id number] for TISHA SHEEHAN POCT-GLUCOSE [id number] 12:25:00* Test Item Value Reference Range Interpretation Comments POC-GLUCOSE METER (BEAKER) (test code = 1538) 95 mg/dL 70-110 : TESTED AT [address], [address]: Fork Repairer/Firebreak Cutter ID = [id number] for MERONDARLINGDIANNATISHA Hemoglobin [id number] 11:54:00* Test Item Value Reference Range Interpretation Comments Hemoglobin A1C (test code = 4548-4) 4.9 % 4.3-6.1 Lab Interpretation (test code = 85775-5) Normal [facility]HEMO[facility] [id number] 11:54:00* Test Item Value Reference Range Interpretation Comments HEMOGLOBIN A1C (BEAKER) (test code = 368) 4.9 % 4.3-6.1 POCT-GLUCOSE [id number] 08:21:00* Test Item Value Reference Range Interpretation Comments POC-GLUCOSE METER (BEAKER) (test code = 1538) 89 mg/dL 70-110 : TESTED AT [address], [address]: Fork Repairer/Firebreak Cutter ID = [id number] for TISHA SHEEHAN RAD, CHEST, 1 VIEW, NON [id number] 07:21:00while patient is intubated or has chest tubes.Reason for exam:->Status post CV SurgeryShould this be performed at the bedside?->YesFINAL REPORT RAD, CHEST, 1 VIEW, NON DEPT INDICATION: Status post CV Surgery COMPARISON: Prior day's exam FINDINGS: Portable frontal view of the chest. IMPRESSION: Support Lines: Right IJ central venous catheter has been removed. Remaining support hardware is stable. Lungs and pleura: Central congestive interstitial changes are stable. No new effusion. No pneumothorax.Heart and mediastinum: Stable contours. Stable surgical changes.Additional findings: None. Signed: JR Rodriguez Robert MDReport Verified Date/Time: 12/17/2019 07:21:39 Reading Location: [address] Transitional Reading Room [id number] 04:45:00* Test Item Value Reference Range Interpretation Comments Phosphorus (test code = 2777-1) 2.6 mg/dL 2.3-4.7 DEJA (test code = DEJA) Fork Repairer ID Winsome Moore Lab Interpretation (test code = 39000-8) Normal [facility]2020-10-07 04:45:00* Test Item Value Reference Range Interpretation Comments PHOSPHORUS (BEAKER) (test code = 604) 2.6 mg/dL 2.3-4.7 Fork Repairer LORIE MCGOVERN [id number] 04:45:00* Test Item Value Reference Range Interpretation Comments MAGNESIUM (BEAKER) (test code = 627) 2.0 mg/dL 1.6-2.6 Fork Repairer LORIE MCGOVERN MBASIC METABOLIC [id number] 04:45:00* Test Item Value Reference Range Interpretation Comments SODIUM (BEAKER) (test code = 381) 139 meq/L 136-145 POTASSIUM (BEAKER) (test code = 379) 4.1 meq/L 3.5-5.1 CHLORIDE (BEAKER) (test code = 382) 108 meq/L 98-107 H CO2 (BEAKER) (test code = 355) 24 meq/L 22-29 BLOOD UREA NITROGEN (BEAKER) (test code = 354) 25 mg/dL 7-21 H CREATININE (BEAKER) (test code = 358) 0.73 mg/dL 0.57-1.25 GLUCOSE RANDOM (BEAKER) (test code = 652) 110 mg/dL 70-105 H CALCIUM (BEAKER) (test code = 697) 8.0 mg/dL 8.4-10.2 L EGFR (BEAKER) (test code = 1092) 81 mL/min/1.73 sq m ESTIMATED GFR IS NOT ACCURATE CREATININE CLEARANCE IN PREDICTING GLOMERULAR FILTRATION RATE. ESTIMATED GFR IS NOT APPLICABLE FOR DIALYSIS PATIENTS. Fork Repairer LORIE MCGOVERN MCBC (HEMOGRAM ONLY)2019-12-17 04:19:00* Test Item Value Reference Range Interpretation Comments WHITE BLOOD CELL COUNT (BEAKER) (test code = 775) 9.4 K/ L 3.5- 10.5 RED BLOOD CELL COUNT (BEAKER) (test code = 761) 2.00 M/ L 3.93-5 .22 L HEMOGLOBIN (BEAKER) (test code = 410) 6.3 GM/DL 11.2-15.7 L HEMATOCRIT (BEAKER) (test code = 411) 18.9 % 34.1-44.9 L MEAN CORPUSCULAR VOLUME (BEAKER) (test code = 753) 94.5 fL 79. 4-94.8 Discordant MCV result compared to previous result; clinical correlation required. MEAN CORPUSCULAR HEMOGLOBIN (BEAKER) (test code = 751) 31.5 pg 25.6-32.2 MEAN CORPUSCULAR HEMOGLOBIN CONC (BEAKER) (test code = 752) 33.3 GM/DL 32.2-35.5 RED CELL DISTRIBUTION WIDTH (BEAKER) (test code = 412) 13.8 % 11.7-14.4 PLATELET COUNT (BEAKER) (test code = 756) 129 K/CU MM 150-450 L MEAN PLATELET VOLUME (BEAKER) (test code = 754) 11.2 fL 9.4-12 .3 NUCLEATED RED BLOOD CELLS (BEAKER) (test code = 413) 0 /100 WBC 0 -0 CALCIUM, [id number] 04:16:00* Test Item Value Reference Range Interpretation Comments CALCIUM IONIZED (BEAKER) (test code = 698) 1.16 mmol/L 1.12-1.27 PH, BLOOD (BEAKER) (test code = 1810) 7.35 POCT-GLUCOSE [id number] 04:15:00* Test Item Value Reference Range Interpretation Comments POC-GLUCOSE METER (BEAKER) (test code = 1538) 101 mg/dL 70-110 : TESTED AT [address], [address]: Fork Repairer/Firebreak Cutter ID = [id number] for RamzanRaffaeleJosie POCT-GLUCOSE [id number] 00:22:00* Test Item Value Reference Range Interpretation Comments POC-GLUCOSE METER (BEAKER) (test code = 1538) 90 mg/dL 70-110 : TESTED AT [address], [address]: Fork Repairer/Firebreak Cutter ID = [id number] for MEHTA, ALEXANDRA POCT-GLUCOSE [id number] 20:24:00* Test Item Value Reference Range Interpretation Comments POC-GLUCOSE METER (BEAKER) (test code = 1538) 98 mg/dL 70-110 : TESTED AT [address], [address]: Fork Repairer/Firebreak Cutter ID = [id number] for MEHTA, ALEXANDRA POCT-GLUCOSE [id number] 12:14:00* Test Item Value Reference Range Interpretation Comments POC-GLUCOSE METER (BEAKER) (test code = 1538) 117 mg/dL 70-110 H : TESTED AT [address], [address]: Fork Repairer/Firebreak Cutter ID = [id number] for ALLEN, CUBA POCT-GLUCOSE [id number] 11:48:00* Test Item Value Reference Range Interpretation Comments POC-GLUCOSE METER (BEAKER) (test code = 1538) 137 mg/dL 70-110 H : TESTED AT [place] [id number] [facility], [address]: Fork Repairer/Firebreak Cutter ID = [id number] for CUBA ALLEN POCT-GLUCOSE [id number] 09:04:00* Test Item Value Reference Range Interpretation Comments POC-GLUCOSE METER (BEAKER) (test code = 1538) 139 mg/dL 70-110 H : TESTED AT [address], [address]: Fork Repairer/Firebreak Cutter ID = [id number] for LIBBY REYES POCT-GLUCOSE [id number] 05:27:00* Test Item Value Reference Range Interpretation Comments POC-GLUCOSE METER (BEAKER) (test code = 1538) 134 mg/dL 70-110 H : TESTED AT [address], [address]: Fork Repairer/Firebreak Cutter ID = [id number] for CAIO PETIT RAD, CHEST, 1 VIEW, NON [id number] 04:49:00while patient is intubated or has chest tubes.Reason for exam:->Status post CV SurgeryShould this be performed at the bedside?->YesFINAL REPORT RAD, CHEST, 1 VIEW, NON DEPT INDICATION: Status post CV Surgery COMPARISON: Prior day's exam FINDINGS: Portable frontal view of the chest. IMPRESSION: Support Lines: Stable. Lungs and pleura: Unchanged airspace and pleural opacities. No pneumothorax.Heart and mediastinum: Stable contours. Stable surgical changes.Additional findings: None. Signed: Isha Grider [facility] Verified Date/Time: 12/16/2019 04:49:17 C METABOLIC [id number] 03:49:00* Test Item Value Reference Range Interpretation Comments SODIUM (BEAKER) (test code = 381) 140 meq/L 136-145 POTASSIUM (BEAKER) (test code = 379) 4.6 meq/L 3.5-5.1 CHLORIDE (BEAKER) (test code = 382) 113 meq/L 98-107 H CO2 (BEAKER) (test code = 355) 21 meq/L 22-29 L BLOOD UREA NITROGEN (BEAKER) (test code = 354) 18 mg/dL 7-21 CREATININE (BEAKER) (test code = 358) 0.64 mg/dL 0.57-1.25 GLUCOSE RANDOM (BEAKER) (test code = 652) 152 mg/dL 70-105 H CALCIUM (BEAKER) (test code = 697) 7.5 mg/dL 8.4-10.2 L EGFR (BEAKER) (test code = 1092) 94 mL/min/1.73 sq m ESTIMATED GFR IS NOT ACCURATE CREATININE CLEARANCE IN PREDICTING GLOMERULAR FILTRATION RATE. ESTIMATED GFR IS NOT APPLICABLE FOR DIALYSIS PATIENTS. Fork Repairer ID - [id number] 03:48:00* Test Item Value Reference Range Interpretation Comments PHOSPHORUS (BEAKER) (test code = 604) 4.4 mg/dL 2.3-4.7 Fork Repairer ID - [id number] 03:48:00* Test Item Value Reference Range Interpretation Comments MAGNESIUM (BEAKER) (test code = 627) 2.0 mg/dL 1.6-2.6 Fork Repairer ID - EDASILactic Acid, [id number] 03:38:00* Test Item Value Reference Range Interpretation Comments Lactate, Art (test code = 2874) 1.0 mmol/L 0.5-2.2 DEJA (test code = DEJA) Fork Repairer ID - EDASI Lab Interpretation (test code = 48792-0) Normal [facility], [id number] 03:38:00* Test Item Value Reference Range Interpretation Comments LACTATE BLOOD ARTERIAL (2) (BEAKER) (test code = 2874) 1.0 mmol/L 0.5-2.2 Fork Repairer ID - EDASICBC (HEMOGRAM ONLY)2019-12-16 03:36:00* Test Item Value Reference Range Interpretation Comments WHITE BLOOD CELL COUNT (BEAKER) (test code = 775) 10.9 K/ L 3.5- 10.5 H RED BLOOD CELL COUNT (BEAKER) (test code = 761) 2.52 M/ L 3.93-5 .22 L HEMOGLOBIN (BEAKER) (test code = 410) 7.7 GM/DL 11.2-15.7 L HEMATOCRIT (BEAKER) (test code = 411) 22.8 % 34.1-44.9 L MEAN CORPUSCULAR VOLUME (BEAKER) (test code = 753) 90.5 fL 79. 4-94.8 MEAN CORPUSCULAR HEMOGLOBIN (BEAKER) (test code = 751) 30.6 pg 25.6-32.2 MEAN CORPUSCULAR HEMOGLOBIN CONC (BEAKER) (test code = 752) 33.8 GM/DL 32.2-35.5 RED CELL DISTRIBUTION WIDTH (BEAKER) (test code = 412) 12.9 % 11.7-14.4 PLATELET COUNT (BEAKER) (test code = 756) 146 K/CU MM 150-450 L MEAN PLATELET VOLUME (BEAKER) (test code = 754) 11.1 fL 9.4-12 .3 NUCLEATED RED BLOOD CELLS (BEAKER) (test code = 413) 0 /100 WBC 0 -0 Blood gas, [id number] 03:31:00* Test Item Value Reference Range Interpretation Comments pH, Arterial (test code = 2744-1) 7.39 7.35-7.45 pCO2, Arterial (test code = 2019-8) 38 35- 45 mmHg pO2, Arterial (test code = 2703-7) 142 80- 90 mmHg H O2 Sat, Arterial (test code = 2708-6) 98.8 % 96-97 H HCO3, Arterial (test code = 1960-4) 23 mmol/L 21-29 Base Excess, Arterial (test code = 1925-7) -2.1 mmol/L -2-3 L Patient Temperature (test code = 8310-5) 36.7 C FIO2 (test code = 1819) 28 % Lab Interpretation (test code = 02605-8) Abnormal [facility] [id number] 03:31:00* Test Item Value Reference Range Interpretation Comments POC-GLUCOSE METER (BEAKER) (test code = 1538) 146 mg/dL 70-110 H : TESTED AT [facility] [address] [place], [address]: Fork Repairer/Firebreak Cutter ID = [id number] for PETITCAIO PARIS BLOOD GAS, [id number] 03:31:00* Test Item Value Reference Range Interpretation Comments PH ARTERIAL (BEAKER) (test code = 383) 7.39 7.35-7.45 PCO2 ARTERIAL (BEAKER) (test code = 384) 38 mmHg 35-45 PO2 ARTERIAL (BEAKER) (test code = 385) 142 mmHg 80-90 H O2 SATURATION ARTERIAL (BEAKER) (test code = 386) 98.8 % 96.0 -97.0 H HCO3 ARTERIAL (BEAKER) (test code = 388) 23 mmol/L 21-29 BASE EXCESS ARTERIAL (BEAKER) (test code = 387) -2.1 mmol/L -2.0-3 .0 L PATIENT TEMPERATURE (BEAKER) (test code = 1818) 36.7 C FIO2 (BEAKER) (test code = 1819) 28.0 % CALCIUM, [id number] 03:31:00* Test Item Value Reference Range Interpretation Comments CALCIUM IONIZED (BEAKER) (test code = 698) 1.10 mmol/L 1.12-1.27 L PH, BLOOD (BEAKER) (test code = 1810) 7.39 POCT-GLUCOSE [id number] 01:39:00* Test Item Value Reference Range Interpretation Comments POC-GLUCOSE METER (BEAKER) (test code = 1538) 150 mg/dL 70-110 H : TESTED AT [address], [address]: Fork Repairer/Firebreak Cutter ID = [id number] for MARISABEL CAIO POC ACTIVATED CLOTTING [id number] 23:39:00* Test Item Value Reference Range Interpretation Comments Activated Clotting Time (test code = 441) 114 sec : 74-137 seconds, Baseline: TESTED AT [address], [address]: Fork Repairer/Firebreak Cutter ID = [id number] for KATALINA SANZ [facility] CenterPOCT-[id number] 23:39:00* Test Item Value Reference Range Interpretation Comments ACTIVATED CLOTTING TIME (BEAKER) (test code = 441) 114 sec : 74-137 seconds, Baseline: TESTED AT [address], [address]: Fork Repairer/Firebreak Cutter ID = [id number] for KATALINA SANZ [id number] 23:39:00* Test Item Value Reference Range Interpretation Comments ACTIVATED CLOTTING TIME (BEAKER) (test code = 441) 472 sec : 74-137 seconds, Baseline: TESTED AT [address], [address]: Fork Repairer/Firebreak Cutter ID = [id number] for KATALINA SANZ [id number] 23:39:00* Test Item Value Reference Range Interpretation Comments ACTIVATED CLOTTING TIME (BEAKER) (test code = 441) 565 sec : 74-137 seconds, Baseline: TESTED AT [address], [address]: Fork Repairer/Firebreak Cutter ID = [id number] for KATALINA SANZ [id number] 23:39:00* Test Item Value Reference Range Interpretation Comments ACTIVATED CLOTTING TIME (BEAKER) (test code = 441) 538 sec : 74-137 seconds, Baseline: TESTED AT [address], [address]: Fork Repairer/Firebreak Cutter ID = [id number] for KATALINA SANZ [id number] 23:39:00* Test Item Value Reference Range Interpretation Comments ACTIVATED CLOTTING TIME (BEAKER) (test code = 441) 698 sec : 74-137 seconds, Baseline: TESTED AT [address], [address]: Fork Repairer/Firebreak Cutter ID = [id number] for KATALINA SANZ POCT-GLUCOSE [id number] 23:08:00* Test Item Value Reference Range Interpretation Comments POC-GLUCOSE METER (BEAKER) (test code = 1538) 150 mg/dL 70-110 H : TESTED AT [address], [address]: Fork Repairer/Firebreak Cutter ID = [id number] for CAIO PETIT CALCIUM, [id number] 23:03:00* Test Item Value Reference Range Interpretation Comments CALCIUM IONIZED (BEAKER) (test code = 698) 1.13 mmol/L 1.12-1.27 PH, BLOOD (BEAKER) (test code = 1810) 7.37 Check serum Ionized Calcium level after 4 hours after IV Calcium replacement. RAD, CHEST, 1 VIEW, NON [id number] 22:04:00Reason for exam:->pulmonary congestionFINAL REPORT Chest, 1 view. History: Pulmonary congestion. Comparison: 12/15/2019 at 1455. IMPRESSION: Endotracheal tube and enteric tube are no longer present. Remaining visualized support lines/tubes identified in stable position. There is no evidence for new large focal consolidation, significant pneumothorax, or significant pleural effusion. The cardiomediastinal silhouette is stable in appearance. No acute osseous abnormality is identified. Signed: Ryan Lopez Verified Date/Time: 12/15/2019 22:04:57 Reading Location: [address] Consult Reading Room /HCT (H& H)-Stat [id number] 20:44:00* Test Item Value Reference Range Interpretation Comments Hemoglobin (test code = 786-4) 9.2 g/dL 12-15 L Hematocrit (test code = 4544-3) 27.0 % 36-45 L Lab Interpretation (test code = 08446-0) [facility] [id number] 20:44:00* Test Item Value Reference Range Interpretation Comments Glucose (test code = 2345-7) 149 mg/dL 70-110 H Lab Interpretation (test code = 38928-7) [facility] [id number] 20:44:00* Test Item Value Reference Range Interpretation Comments PH ARTERIAL (BEAKER) (test code = 383) 7.38 7.35-7.45 PCO2 ARTERIAL (BEAKER) (test code = 384) 38 mmHg 35-45 PO2 ARTERIAL (BEAKER) (test code = 385) 154 mmHg 80-90 H O2 SATURATION ARTERIAL (BEAKER) (test code = 386) 98.9 % 96.0 -97.0 H HCO3 ARTERIAL (BEAKER) (test code = 388) 22 mmol/L 21-29 BASE EXCESS ARTERIAL (BEAKER) (test code = 387) -3.1 mmol/L -2.0-3 .0 L PATIENT TEMPERATURE (BEAKER) (test code = 1818) 37.2 C FIO2 (BEAKER) (test code = 1819) 36.0 % GLUCOSE-STAT [id number] 20:44:00* Test Item Value Reference Range Interpretation Comments GLUCOSE RANDOM (BEAKER) (test code = 652) 149 mg/dL 70-110 H HGB/HCT (H&H) - STAT [id number] 20:44:00* Test Item Value Reference Range Interpretation Comments HEMOGLOBIN (BEAKER) (test code = 410) 9.2 g/dL 12.0-15.0 L HEMATOCRIT (BEAKER) (test code = 411) 27.0 % 36.0-45.0 L Sodium Na-Stat [id number] 20:42:00* Test Item Value Reference Range Interpretation Comments Sodium (test code = 2951-2) 135 meq/L 136-145 L Lab Interpretation (test code = 18481-5) [facility] [id number] 20:42:00* Test Item Value Reference Range Interpretation Comments Potassium (test code = 2823-3) 4.6 meq/L 3.6-5.5 Lab Interpretation (test code = 63445-1) [facility] [id number] 20:42:00* Test Item Value Reference Range Interpretation Comments SODIUM (BEAKER) (test code = 381) 135 meq/L 136-145 L POTASSIUM-STAT [id number] 20:42:00* Test Item Value Reference Range Interpretation Comments POTASSIUM (BEAKER) (test code = 379) 4.6 meq/L 3.6-5.5 BASIC METABOLIC [id number] 20:00:00* Test Item Value Reference Range Interpretation Comments SODIUM (BEAKER) (test code = 381) 141 meq/L 136-145 POTASSIUM (BEAKER) (test code = 379) 4.7 meq/L 3.5-5.1 CHLORIDE (BEAKER) (test code = 382) 113 meq/L 98-107 H CO2 (BEAKER) (test code = 355) 22 meq/L 22-29 BLOOD UREA NITROGEN (BEAKER) (test code = 354) 16 mg/dL 7-21 CREATININE (BEAKER) (test code = 358) 0.55 mg/dL 0.57-1.25 L GLUCOSE RANDOM (BEAKER) (test code = 652) 148 mg/dL 70-105 H CALCIUM (BEAKER) (test code = 697) 6.6 mg/dL 8.4-10.2 L EGFR (BEAKER) (test code = 1092) 112 mL/min/1.73 sq m ESTIMATED GFR IS NOT ACCURATE CREATININE CLEARANCE IN PREDICTING GLOMERULAR FILTRATION RATE. ESTIMATED GFR IS NOT APPLICABLE FOR DIALYSIS PATIENTS. Fork Repairer ID - [id number] 19:59:00* Test Item Value Reference Range Interpretation Comments MAGNESIUM (BEAKER) (test code = 627) 2.4 mg/dL 1.6-2.6 Fork Repairer ID - BSBLOOD GAS, [id number] 18:57:00* Test Item Value Reference Range Interpretation Comments PH ARTERIAL (BEAKER) (test code = 383) 7.38 7.35-7.45 PCO2 ARTERIAL (BEAKER) (test code = 384) 38 mmHg 35-45 PO2 ARTERIAL (BEAKER) (test code = 385) 111 mmHg 80-90 H O2 SATURATION ARTERIAL (BEAKER) (test code = 386) 98.0 % 96.0 -97.0 H HCO3 ARTERIAL (BEAKER) (test code = 388) 22 mmol/L 21-29 BASE EXCESS ARTERIAL (BEAKER) (test code = 387) -2.7 mmol/L -2.0-3 .0 L PATIENT TEMPERATURE (BEAKER) (test code = 1818) 37.2 C FIO2 (BEAKER) (test code = 1819) 40.0 % GLUCOSE-STAT [id number] 18:57:00* Test Item Value Reference Range Interpretation Comments GLUCOSE RANDOM (BEAKER) (test code = 652) 151 mg/dL 70-110 H HGB/HCT (H&H) - STAT [id number] 18:57:00* Test Item Value Reference Range Interpretation Comments HEMOGLOBIN (BEAKER) (test code = 410) 8.8 g/dL 12.0-15.0 L HEMATOCRIT (BEAKER) (test code = 411) 26.0 % 36.0-45.0 L CALCIUM, [id number] 18:57:00* Test Item Value Reference Range Interpretation Comments CALCIUM IONIZED (BEAKER) (test code = 698) 1.01 mmol/L 1.12-1.27 L PH, BLOOD (BEAKER) (test code = 1810) 7.38 LACTIC ACID, [id number] 18:07:00* Test Item Value Reference Range Interpretation Comments LACTATE BLOOD ARTERIAL (2) (BEAKER) (test code = 2874) 1.3 mmol/L 0.5-2.2 Fork Repairer ID - BSBLOOD GAS, [id number] 17:34:00* Test Item Value Reference Range Interpretation Comments PH ARTERIAL (BEAKER) (test code = 383) 7.41 7.35-7.45 PCO2 ARTERIAL (BEAKER) (test code = 384) 36 mmHg 35-45 PO2 ARTERIAL (BEAKER) (test code = 385) 138 mmHg 80-90 H O2 SATURATION ARTERIAL (BEAKER) (test code = 386) 98.8 % 96.0 -97.0 H HCO3 ARTERIAL (BEAKER) (test code = 388) 22 mmol/L 21-29 BASE EXCESS ARTERIAL (BEAKER) (test code = 387) -2.3 mmol/L -2.0-3 .0 L PATIENT TEMPERATURE (BEAKER) (test code = 1818) 36.1 C FIO2 (BEAKER) (test code = 1819) 40.0 % GLUCOSE-STAT [id number] 17:34:00* Test Item Value Reference Range Interpretation Comments GLUCOSE RANDOM (BEAKER) (test code = 652) 114 mg/dL 70-110 H HGB/HCT (H&H) - STAT [id number] 17:34:00* Test Item Value Reference Range Interpretation Comments HEMOGLOBIN (BEAKER) (test code = 410) 7.9 g/dL 12.0-15.0 L HEMATOCRIT (BEAKER) (test code = 411) 23.0 % 36.0-45.0 L SODIUM NA-STAT [id number] 17:33:00* Test Item Value Reference Range Interpretation Comments SODIUM (BEAKER) (test code = 381) 135 meq/L 136-145 L POTASSIUM-STAT [id number] 17:33:00* Test Item Value Reference Range Interpretation Comments POTASSIUM (BEAKER) (test code = 379) 4.6 meq/L 3.6-5.5 CBC W/PLT COUNT & AUTO [id number] 17:31:00* Test Item Value Reference Range Interpretation Comments WHITE BLOOD CELL COUNT (BEAKER) (test code = 775) 6.4 K/ L 3.5- 10.5 RED BLOOD CELL COUNT (BEAKER) (test code = 761) 2.17 M/ L 3.93-5 .22 L HEMOGLOBIN (BEAKER) (test code = 410) 6.9 GM/DL 11.2-15.7 L HEMATOCRIT (BEAKER) (test code = 411) 20.0 % 34.1-44.9 L MEAN CORPUSCULAR VOLUME (BEAKER) (test code = 753) 92.2 fL 79. 4-94.8 MEAN CORPUSCULAR HEMOGLOBIN (BEAKER) (test code = 751) 31.8 pg 25.6-32.2 MEAN CORPUSCULAR HEMOGLOBIN CONC (BEAKER) (test code = 752) 34.5 GM/DL 32.2-35.5 RED CELL DISTRIBUTION WIDTH (BEAKER) (test code = 412) 12.7 % 11.7-14.4 PLATELET COUNT (BEAKER) (test code = 756) 87 K/CU MM 150-450 L MEAN PLATELET VOLUME (BEAKER) (test code = 754) 12.1 fL 9.4-12 .3 NUCLEATED RED BLOOD CELLS (BEAKER) (test code = 413) 0 /100 WBC 0 -0 NEUTROPHILS RELATIVE PERCENT (BEAKER) (test code = 429) 82 % LYMPHOCYTES RELATIVE PERCENT (BEAKER) (test code = 430) 15 % MONOCYTES RELATIVE PERCENT (BEAKER) (test code = 431) 0 % EOSINOPHILS RELATIVE PERCENT (BEAKER) (test code = 432) 1 % BASOPHILS RELATIVE PERCENT (BEAKER) (test code = 437) 0 % NEUTROPHILS ABSOLUTE COUNT (BEAKER) (test code = 670) 5.26 K/ L 1.56-6.13 LYMPHOCYTES ABSOLUTE COUNT (BEAKER) (test code = 414) 0.98 K/ L 1.18-3.74 L MONOCYTES ABSOLUTE COUNT (BEAKER) (test code = 415) 0.02 K/ L 0. 24-0.36 L EOSINOPHILS ABSOLUTE COUNT (BEAKER) (test code = 416) 0.03 K/ L 0.04-0.36 L BASOPHILS ABSOLUTE COUNT (BEAKER) (test code = 417) 0.02 K/ L 0. 01-0.08 IMMATURE GRANULOCYTES-RELATIVE PERCENT (BEAKER) (test code = 2801) 1 % 0-1 RAD, CHEST, 1 VIEW, NON [id number] 15:25:00Reason for exam:->post opShould this be performed at the bedside?->YesFINAL REPORT RAD, CHEST, 1 VIEW, NON DEPT INDICATION: post op COMPARISON: December 11, 2019 FINDINGS: Portable frontal view of the chest. IMPRESSION: Support Lines: ET tube tip is 2 cm superior to the alyssa. NG tube descends below the diaphragm. Bilateral chest tubes. Right-sided central catheter tip overlies the SVC. Lungs and pleura: Lungs are clear. Small biapical pneumothoraces. Heart and mediastinum: Stable contours.Additional findings: None. Signed: Elsy Pike MDReport Verified Date/Time: 12/15/2019 15:25:25 Reading Location: [address] Neuro Reading Room Comprehensive metabolic [id number] 15:19:00* Test Item Value Reference Range Interpretation Comments Protein, Total (test code = 2885-2) 4.4 6.0- 8.3 gm/dL L Specimen slightly hemolyzed Albumin (test code = 18605-0) 2.7 g/dL 3.5-5 L Specimen slightly hemolyzed Alkaline Phosphatase (test code = 6768-6) 39 U/L 40-150 L Total Bilirubin (test code = 1975-2) 0.6 mg/dL 0.2-1.2 Specimen slightly hemolyzed Sodium (test code = 2951-2) 142 meq/L 136-145 Potassium (test code = 2823-3) 3.3 meq/L 3.5-5.1 L Specimen slightly hemolyzed Chloride (test code = 2075-0) 117 meq/L 98-107 H CO2 (test code = 2027-9) 20 meq/L 22-29 L BUN (test code = 3094-0) 18 mg/dL 7-21 Creatinine (test code = 2160-0) 0.56 mg/dL 0.57-1.25 L Specimen slightly hemolyzed Glucose (test code = 2345-7) 172 mg/dL 70-105 H Calcium (test code = 83572-7) 6.8 mg/dL 8.4-10.2 L AST (test code = 1920-8) 35 U/L 5-34 H Spe cimen slightly hemolyzed ALT (test code = 1742-6) 9 U/L 6-55 Spe cimen slightly hemolyzed EGFR (test code = 22776-3) 110 mL/min/1.73 sq m ESTIMATED GFR IS NOT ACCURATE CREATININE CLEARANCE IN PREDICTING GLOMERULAR FILTRATION RATE. ESTIMATED GFR IS NOT APPLICABLE FOR DIALYSIS PATIENTS. DEJA (test code = DEJA) Fork Repairer ID - DONY Acevedo Lab Interpretation (test code = 43051-8) [facility]normal [facility] CenterCOMPRE[facility] METABOL[facility] [id number] 15:19:00* Test Item Value Reference Range Interpretation Comments TOTAL PROTEIN (BEAKER) (test code = 770) 4.4 gm/dL 6.0-8.3 L Specimen slightly hemolyzed ALBUMIN (BEAKER) (test code = 1145) 2.7 g/dL 3.5-5.0 L Specimen slightly hemolyzed ALKALINE PHOSPHATASE (BEAKER) (test code = 346) 39 U/L 40-150 L BILIRUBIN TOTAL (BEAKER) (test code = 377) 0.6 mg/dL 0.2-1.2 Specimen slightly hemolyzed SODIUM (BEAKER) (test code = 381) 142 meq/L 136-145 POTASSIUM (BEAKER) (test code = 379) 3.3 meq/L 3.5-5.1 L Specimen slightly hemolyzed CHLORIDE (BEAKER) (test code = 382) 117 meq/L 98-107 H CO2 (BEAKER) (test code = 355) 20 meq/L 22-29 L BLOOD UREA NITROGEN (BEAKER) (test code = 354) 18 mg/dL 7-21 CREATININE (BEAKER) (test code = 358) 0.56 mg/dL 0.57-1.25 L Specimen slightly hemolyzed GLUCOSE RANDOM (BEAKER) (test code = 652) 172 mg/dL 70-105 H CALCIUM (BEAKER) (test code = 697) 6.8 mg/dL 8.4-10.2 L AST (SGOT) (BEAKER) (test code = 353) 35 U/L 5-34 H Specimen slightly hemolyzed ALT (SGPT) (BEAKER) (test code = 347) 9 U/L 6-55 Specimen slightly hemolyzed EGFR (BEAKER) (test code = 1092) 110 mL/min/1.73 sq m ESTIMATED GFR IS NOT ACCURATE CREATININE CLEARANCE IN PREDICTING GLOMERULAR FILTRATION RATE. ESTIMATED GFR IS NOT APPLICABLE FOR DIALYSIS PATIENTS. Fork Repairer ID Winsome BREWERULedhjpu-KPWC0242-09-05 15:18:00* Test Item Value Reference Range Interpretation Comments Glucose (test code = 2345-7) 172 mg/dL 70-105 H DEJA (test code = DEJA) Fork Repairer ID Winsome Acevedo Lab Interpretation (test code = 40410-9) Abnormal [facility]Potassium-[id number] 15:18:00* Test Item Value Reference Range Interpretation Comments Potassium (test code = 2823-3) 3.3 meq/L 3.5-5.1 L Specimen slightly hemolyzed DEJA (test code = DEJA) Fork Repairer ID Winsome Acevedo Lab Interpretation (test code = 24304-6) Abnormal [facility] HospitalMAGNESIUM2020-10-05 15:18:00* Test Item Value Reference Range Interpretation Comments MAGNESIUM (BEAKER) (test code = 627) 1.6 mg/dL 1.6-2.6 Specimen slightly hemolyzed Fork Repairer ID Winsome N[place]OLES [id number] 15:18:00* Test Item Value Reference Range Interpretation Comments PHOSPHORUS (BEAKER) (test code = 604) 3.2 mg/dL 2.3-4.7 Specimen slightly hemolyzed Fork Repairer ID Winsome [place] [id number] 15:18:00* Test Item Value Reference Range Interpretation Comments POTASSIUM (BEAKER) (test code = 379) 3.3 meq/L 3.5-5.1 L Specimen slightly hemolyzed Fork Repairer ID Winsome N[place] [id number] 15:18:00* Test Item Value Reference Range Interpretation Comments GLUCOSE RANDOM (BEAKER) (test code = 652) 172 mg/dL 70-105 H Fork Repairer ID - DONY PLruubtmfgj1586-11-19 15:08:00* Test Item Value Reference Range Interpretation Comments Fibrinogen (test code = 3255-7) 238 mg/dl 225-434 Lab Interpretation (test code = 64493-9) Normal [facility] HospitalaPTT2020-[facility] 15:08:00* Test Item Value Reference Range Interpretation Comments PTT (test code = 94940-9) 36.1 22.5- 36.0 seconds H Lab Interpretation (test code = 36132-0) Abnormal [facility] HospitalFIBRINOGEN2020-10-05 15:08:00* Test Item Value Reference Range Interpretation Comments FIBRINOGEN LEVEL (RKAKER) (test code = 658) 238 mg/dl 225-434 [id number] 15:08:00* Test Item Value Reference Range Interpretation Comments PARTIAL THROMBOPLASTIN TIME (BEAKER) (test code = 760) 36.1 seconds 22.5-36.0 H Prothrombin time/[id number] 15:07:00* Test Item Value Reference Range Interpretation Comments Protime (test code = 5902-2) 18.5 11.9- 14.2 seconds H INR (test code = 6301-6) 1.59 <=5.90 DEJA (test code = DEJA) Effective 08/07/2018: PT Refe rence Range ChangeNew: 11.9- 14.2 Previous: 11.7-14.7 RECOMMENDED COUMADIN/WARFARIN INR THERAPY RANGESSTANDARD DOSE: 2.0-3.0 Includes: PROPHYLAXIS for venous thrombosis, sys temic embolization; TREATMENT for venous thrombosis and/or pulmonary embolus.HIGH RISK: Target INR is 2.5-3.5 for patients wiht mechanical heart valves. Lab Interpretation (test code = 95489-2) Abnormal [facility] HospitalPROTHROMBIN TIME/[id number] 15:07:00* Test Item Value Reference Range Interpretation Comments PROTIME (JASPREET) (test code = 759) 18.5 seconds 11.9-14.2 H INR (AKER) (test code = 370) 1.59 <=5.90 Effective 08/07/2018: PT Reference Range ChangeNew: 11.9-14.2 Previous: 11.7-14. 7RECOMMENDED COUMADIN/WARFARIN INR THERAPY RANGESSTANDARD DOSE: 2.0-3.0 Include s: PROPHYLAXIS for venous thrombosis, systemic embolization; TREATMENT for venou s thrombosis and/or pulmonary embolus.HIGH RISK: Target INR is 2.5-3.5 for patie nts wiht mechanical heart valves.LACTIC ACID, [id number] 15:05:00* Test Item Value Reference Range Interpretation Comments LACTATE BLOOD ARTERIAL (2) (BEAKER) (test code = 2874) 2.0 mmol/L 0.5-2.2 Specimen slightly hemolyzed Fork Repairer [place] Winsome N[place] FCBC W/PLT COUNT & AUTO [id number] 14:59:00* Test Item Value Reference Range Interpretation Comments WHITE BLOOD CELL COUNT (BEAKER) (test code = 775) 7.6 K/ L 3.5- 10.5 RED BLOOD CELL COUNT (BEAKER) (test code = 761) 2.69 M/ L 3.93-5 .22 L HEMOGLOBIN (BEAKER) (test code = 410) 8.3 GM/DL 11.2-15.7 L HEMATOCRIT (BEAKER) (test code = 411) 24.6 % 34.1-44.9 L MEAN CORPUSCULAR VOLUME (BEAKER) (test code = 753) 91.4 fL 79. 4-94.8 MEAN CORPUSCULAR HEMOGLOBIN (BEAKER) (test code = 751) 30.9 pg 25.6-32.2 MEAN CORPUSCULAR HEMOGLOBIN CONC (BEAKER) (test code = 752) 33.7 GM/DL 32.2-35.5 RED CELL DISTRIBUTION WIDTH (BEAKER) (test code = 412) 12.7 % 11.7-14.4 PLATELET COUNT (BEAKER) (test code = 756) 94 K/CU MM 150-450 L MEAN PLATELET VOLUME (BEAKER) (test code = 754) 10.8 fL 9.4-12 .3 NUCLEATED RED BLOOD CELLS (BEAKER) (test code = 413) 0 /100 WBC 0 -0 NEUTROPHILS RELATIVE PERCENT (BEAKER) (test code = 429) 78 % LYMPHOCYTES RELATIVE PERCENT (BEAKER) (test code = 430) 13 % MONOCYTES RELATIVE PERCENT (BEAKER) (test code = 431) 7 % EOSINOPHILS RELATIVE PERCENT (BEAKER) (test code = 432) 1 % BASOPHILS RELATIVE PERCENT (BEAKER) (test code = 437) 0 % NEUTROPHILS ABSOLUTE COUNT (BEAKER) (test code = 670) 5.91 K/ L 1.56-6.13 LYMPHOCYTES ABSOLUTE COUNT (BEAKER) (test code = 414) 1.00 K/ L 1.18-3.74 L MONOCYTES ABSOLUTE COUNT (BEAKER) (test code = 415) 0.51 K/ L 0. 24-0.36 H EOSINOPHILS ABSOLUTE COUNT (BEAKER) (test code = 416) 0.05 K/ L 0.04-0.36 BASOPHILS ABSOLUTE COUNT (BEAKER) (test code = 417) 0.02 K/ L 0. 01-0.08 IMMATURE GRANULOCYTES-RELATIVE PERCENT (BEAKER) (test code = 2801) 1 % 0-1 Oxygen saturation, [id number] 14:55:00* Test Item Value Reference Range Interpretation Comments O2 Saturation (Measured) (test code = 28802-4) 80.0 % [facility] CenterOXYGEN SATURATION, [id number] 14:55:00* Test Item Value Reference Range Interpretation Comments O2 SATURATION (MEASURED) (BEAKER) (test code = 1455) 80.0 % CALCIUM, [id number] 14:53:00* Test Item Value Reference Range Interpretation Comments CALCIUM IONIZED (BEAKER) (test code = 698) 1.07 mmol/L 1.12-1.27 L PH, BLOOD (BEAKER) (test code = 1810) 7.32 SODIUM NA-STAT [id number] 14:52:00* Test Item Value Reference Range Interpretation Comments SODIUM (BEAKER) (test code = 381) 140 meq/L 136-145 BLOOD GAS, [id number] 14:52:00* Test Item Value Reference Range Interpretation Comments PH ARTERIAL (BEAKER) (test code = 383) 7.35 7.35-7.45 PCO2 ARTERIAL (BEAKER) (test code = 384) 38 mmHg 35-45 PO2 ARTERIAL (BEAKER) (test code = 385) 154 mmHg 80-90 H O2 SATURATION ARTERIAL (BEAKER) (test code = 386) 99.0 % 96.0 -97.0 H HCO3 ARTERIAL (BEAKER) (test code = 388) 21 mmol/L 21-29 BASE EXCESS ARTERIAL (BEAKER) (test code = 387) -4.6 mmol/L -2.0-3 .0 L PATIENT TEMPERATURE (BEAKER) (test code = 1818) 34.8 C FIO2 (BEAKER) (test code = 1819) 60.0 % GLUCOSE-STAT [id number] 14:52:00* Test Item Value Reference Range Interpretation Comments GLUCOSE RANDOM (BEAKER) (test code = 652) 166 mg/dL 70-110 H HGB/HCT (H&H) - STAT [id number] 14:52:00* Test Item Value Reference Range Interpretation Comments HEMOGLOBIN (BEAKER) (test code = 410) 8.9 g/dL 12.0-15.0 L HEMATOCRIT (BEAKER) (test code = 411) 26.0 % 36.0-45.0 L POTASSIUM-STAT [id number] 14:52:00* Test Item Value Reference Range Interpretation Comments POTASSIUM (BEAKER) (test code = 379) 3.1 meq/L 3.6-5.5 L Thromboelastograph (TEG)2019-12-15 14:07:00* Test Item Value Reference Range Interpretation Comments TEG Activated Clotting Time (test code = 01551-1) 4.8 4.0- 7.0 minutes TEG Fibrinogen Activity (test code = 52608-8) 65.9 61.0- 73 .0 degrees TEG Platelet Aggregation (test code = 79209-2) 60.1 55.0- 6 5.0 MM TEG-H Activated Clotting Time (test code = 1411) 5.2 4.0- 7.0 minutes TEG-H Fibrinogen Activity (test code = 1412) 63.9 61.0- 73. 0 degrees TEG-H Platelet Aggregation (test code = 1413) 58.2 55.0- 65 .0 MM Lab Interpretation (test code = 38730-2) Normal [facility] CenterTHROMBOELASTOGRAPH (TEG)2019-12-15 14:07:00* Test Item Value Reference Range Interpretation Comments TEG ACTIVATED CLOTTING TIME (BEAKER) (test code = 1407) 4.8 minutes 4.0-7.0 TEG FIBRINOGEN ACTIVITY (BEAKER) (test code = 1408) 65.9 degrees 61 .0-73.0 TEG PLT. AGGREGATION (BEAKER) (test code = 1409) 60.1 MM 55.0- 65.0 TGH ACTIVATED CLOTTING TIME (BEAKER) (test code = 1411) 5.2 minutes 4.0-7.0 TGH FIBRINOGEN ACTIVITY (BEAKER) (test code = 1412) 63.9 degrees 61 .0-73.0 TGH PLT. AGGREGATION (BEAKER) (test code = 1413) 58.2 MM 55.0- 65.0 CALCIUM, [id number] 13:40:00* Test Item Value Reference Range Interpretation Comments CALCIUM IONIZED (BEAKER) (test code = 698) 1.11 mmol/L 1.12-1.27 L PH, BLOOD (BEAKER) (test code = 1810) 7.31 BLOOD GAS, [id number] 13:40:00* Test Item Value Reference Range Interpretation Comments PH ARTERIAL (BEAKER) (test code = 383) 7.34 7.35-7.45 L PCO2 ARTERIAL (BEAKER) (test code = 384) 40 mmHg 35-45 PO2 ARTERIAL (BEAKER) (test code = 385) 171 mmHg 80-90 H O2 SATURATION ARTERIAL (BEAKER) (test code = 386) 99.1 % 96.0 -97.0 H HCO3 ARTERIAL (BEAKER) (test code = 388) 22 mmol/L 21-29 BASE EXCESS ARTERIAL (BEAKER) (test code = 387) -4.1 mmol/L -2.0-3 .0 L PATIENT TEMPERATURE (BEAKER) (test code = 1818) 34.6 C FIO2 (BEAKER) (test code = 1819) 100.0 % POTASSIUM-STAT [id number] 13:40:00* Test Item Value Reference Range Interpretation Comments POTASSIUM (BEAKER) (test code = 379) 3.1 meq/L 3.6-5.5 L GLUCOSE-STAT [id number] 13:40:00* Test Item Value Reference Range Interpretation Comments GLUCOSE RANDOM (BEAKER) (test code = 652) 220 mg/dL 70-110 H HGB/HCT (H&H) - STAT [id number] 13:40:00* Test Item Value Reference Range Interpretation Comments HEMOGLOBIN (BEAKER) (test code = 410) 8.3 g/dL 12.0-15.0 L HEMATOCRIT (BEAKER) (test code = 411) 24.0 % 36.0-45.0 L SODIUM NA-STAT [id number] 13:39:00* Test Item Value Reference Range Interpretation Comments SODIUM (BEAKER) (test code = 381) 137 meq/L 136-145 [id number] 13:17:00* Test Item Value Reference Range Interpretation Comments FIBRINOGEN LEVEL (BEAKER) (test code = 658) 228 mg/dl 225-434 [id number] 13:17:00* Test Item Value Reference Range Interpretation Comments PARTIAL THROMBOPLASTIN TIME (BEAKER) (test code = 760) 43.7 seconds 22.5-36.0 H PROTHROMBIN TIME/[id number] 13:16:00* Test Item Value Reference Range Interpretation Comments PROTIME (BEAKER) (test code = 759) 19.6 seconds 11.9-14.2 H INR (BEAKER) (test code = 370) 1.71 <=5.90 Effective 08/07/2018: PT Reference Range ChangeNew: 11.9-14.2 Previous: 11.7-14. 7RECOMMENDED COUMADIN/WARFARIN INR THERAPY RANGESSTANDARD DOSE: 2.0-3.0 Include s: PROPHYLAXIS for venous thrombosis, systemic embolization; TREATMENT for venou s thrombosis and/or pulmonary embolus.HIGH RISK: Target INR is 2.5-3.5 for patie nts wiht mechanical heart valves.Platelet [id number] 13:03:00* Test Item Value Reference Range Interpretation Comments Platelets (test code = 777-3) 79 150- 450 K/CU MM L DEJA (test code = DEJA) Fork Repairer ID - [id number] Lab Interpretation (test code = 99975-0) Abnormal [facility] CenterPLATELET [id number] 13:03:00* Test Item Value Reference Range Interpretation Comments PLATELET COUNT (BEAKER) (test code = 756) 79 K/CU MM 150-450 L Fork Repairer ID - [id number]-STAT [id number] 12:57:00* Test Item Value Reference Range Interpretation Comments GLUCOSE RANDOM (BEAKER) (test code = 652) 265 mg/dL 70-110 H HGB/HCT (H&H) - STAT [id number] 12:57:00* Test Item Value Reference Range Interpretation Comments HEMOGLOBIN (BEAKER) (test code = 410) 7.3 g/dL 12.0-15.0 L HEMATOCRIT (BEAKER) (test code = 411) 21.0 % 36.0-45.0 L CALCIUM, [id number] 12:57:00* Test Item Value Reference Range Interpretation Comments CALCIUM IONIZED (BEAKER) (test code = 698) 1.21 mmol/L 1.12-1.27 PH, BLOOD (BEAKER) (test code = 1810) 7.40 SODIUM NA-STAT [id number] 12:56:00* Test Item Value Reference Range Interpretation Comments SODIUM (BEAKER) (test code = 381) 136 meq/L 136-145 POTASSIUM-STAT [id number] 12:56:00* Test Item Value Reference Range Interpretation Comments POTASSIUM (BEAKER) (test code = 379) 3.7 meq/L 3.6-5.5 BLOOD GAS, [id number] 12:56:00* Test Item Value Reference Range Interpretation Comments PH ARTERIAL (BEAKER) (test code = 383) 7.42 7.35-7.45 PCO2 ARTERIAL (BEAKER) (test code = 384) 36 mmHg 35-45 PO2 ARTERIAL (BEAKER) (test code = 385) 159 mmHg 80-90 H O2 SATURATION ARTERIAL (BEAKER) (test code = 386) 99.1 % 96.0 -97.0 H HCO3 ARTERIAL (BEAKER) (test code = 388) 23 mmol/L 21-29 BASE EXCESS ARTERIAL (BEAKER) (test code = 387) -1.8 mmol/L -2.0-3 .0 PATIENT TEMPERATURE (BEAKER) (test code = 1818) 35.6 C FIO2 (BEAKER) (test code = 1819) 100.0 % BLOOD GAS, [id number] 12:01:00* Test Item Value Reference Range Interpretation Comments PH ARTERIAL (BEAKER) (test code = 383) 7.41 7.35-7.45 PCO2 ARTERIAL (BEAKER) (test code = 384) 37 mmHg 35-45 PO2 ARTERIAL (BEAKER) (test code = 385) 326 mmHg 80-90 H O2 SATURATION ARTERIAL (BEAKER) (test code = 386) 99.7 % 96.0 -97.0 H HCO3 ARTERIAL (BEAKER) (test code = 388) 25 mmol/L 21-29 BASE EXCESS ARTERIAL (BEAKER) (test code = 387) -1.2 mmol/L -2.0-3 .0 PATIENT TEMPERATURE (BEAKER) (test code = 1818) 30.0 C FIO2 (BEAKER) (test code = 1819) 65.0 % GLUCOSE-STAT [id number] 12:01:00* Test Item Value Reference Range Interpretation Comments GLUCOSE RANDOM (BEAKER) (test code = 652) 296 mg/dL 70-110 H HGB/HCT (H&H) - STAT [id number] 12:01:00* Test Item Value Reference Range Interpretation Comments HEMOGLOBIN (BEAKER) (test code = 410) 7.2 g/dL 12.0-15.0 L HEMATOCRIT (BEAKER) (test code = 411) 21.0 % 36.0-45.0 L SODIUM NA-STAT [id number] 12:00:00* Test Item Value Reference Range Interpretation Comments SODIUM (BEAKER) (test code = 381) 136 meq/L 136-145 POTASSIUM-STAT [id number] 12:00:00* Test Item Value Reference Range Interpretation Comments POTASSIUM (BEAKER) (test code = 379) 4.0 meq/L 3.6-5.5 SODIUM NA-STAT [id number] 11:25:00* Test Item Value Reference Range Interpretation Comments SODIUM (BEAKER) (test code = 381) 135 meq/L 136-145 L POTASSIUM-STAT [id number] 11:25:00* Test Item Value Reference Range Interpretation Comments POTASSIUM (BEAKER) (test code = 379) 4.0 meq/L 3.6-5.5 BLOOD GAS, [id number] 11:25:00* Test Item Value Reference Range Interpretation Comments PH ARTERIAL (BEAKER) (test code = 383) 7.42 7.35-7.45 PCO2 ARTERIAL (BEAKER) (test code = 384) 36 mmHg 35-45 PO2 ARTERIAL (BEAKER) (test code = 385) 365 mmHg 80-90 H O2 SATURATION ARTERIAL (BEAKER) (test code = 386) 99.8 % 96.0 -97.0 H HCO3 ARTERIAL (BEAKER) (test code = 388) 24 mmol/L 21-29 BASE EXCESS ARTERIAL (BEAKER) (test code = 387) -1.9 mmol/L -2.0-3 .0 PATIENT TEMPERATURE (BEAKER) (test code = 1818) 30.2 C FIO2 (BEAKER) (test code = 1819) 65.0 % GLUCOSE-STAT [id number] 11:25:00* Test Item Value Reference Range Interpretation Comments GLUCOSE RANDOM (BEAKER) (test code = 652) 324 mg/dL 70-110 H HGB/HCT (H&H) - STAT [id number] 11:25:00* Test Item Value Reference Range Interpretation Comments HEMOGLOBIN (BEAKER) (test code = 410) 7.4 g/dL 12.0-15.0 L HEMATOCRIT (BEAKER) (test code = 411) 22.0 % 36.0-45.0 L Blood gas, [id number] 11:02:00* Test Item Value Reference Range Interpretation Comments pH, Ranjith (test code = 2746-6) 7.40 7.32-7.42 pCO2, Ranjith (test code = 755) 38 41- 51 mmHg L pO2, Ranjith (test code = 2705-2) 42 25- 40 mmHg H O2 Sat, Ranjith (test code = 2711-0) 82.5 % 40-70 H HCO3, Ranjith (test code = 26648-1) 23 mmol/L 21-29 Base Excess, Ranjith (test code = 1927-3) -1.7 mmol/L -2-3 Patient Temperature (test code = 8310-5) 35.4 C FIO2 (test code = 1819) 80 % Lab Interpretation (test code = 81653-5) [facility] [id number] 11:02:00* Test Item Value Reference Range Interpretation Comments PH VENOUS (BEAKER) (test code = 701) 7.40 7.32-7.42 PCO2 VENOUS (BEAKER) (test code = 755) 38 mmHg 41-51 L PO2 VENOUS (BEAKER) (test code = 702) 42 mmHg 25-40 H O2 SATURATION VENOUS (BEAKER) (test code = 703) 82.5 % 40.0-7 0.0 H HCO3 VENOUS (BEAKER) (test code = 705) 23 mmol/L 21-29 BASE EXCESS VENOUS (BEAKER) (test code = 704) -1.7 mmol/L -2.0-3.0 PATIENT TEMPERATURE (BEAKER) (test code = 1818) 35.4 C FIO2 (BEAKER) (test code = 1819) 80.0 % BLOOD GAS, [id number] 11:02:00* Test Item Value Reference Range Interpretation Comments PH ARTERIAL (BEAKER) (test code = 383) 7.45 7.35-7.45 PCO2 ARTERIAL (BEAKER) (test code = 384) 31 mmHg 35-45 L PO2 ARTERIAL (BEAKER) (test code = 385) 415 mmHg 80-90 H O2 SATURATION ARTERIAL (BEAKER) (test code = 386) 99.8 % 96.0 -97.0 H HCO3 ARTERIAL (BEAKER) (test code = 388) 22 mmol/L 21-29 BASE EXCESS ARTERIAL (BEAKER) (test code = 387) -2.4 mmol/L -2.0-3 .0 L PATIENT TEMPERATURE (BEAKER) (test code = 1818) 35.5 C FIO2 (BEAKER) (test code = 1819) 80.0 % POTASSIUM-STAT [id number] 11:02:00* Test Item Value Reference Range Interpretation Comments POTASSIUM (BEAKER) (test code = 379) 3.3 meq/L 3.6-5.5 L GLUCOSE-STAT [id number] 11:02:00* Test Item Value Reference Range Interpretation Comments GLUCOSE RANDOM (BEAKER) (test code = 652) 214 mg/dL 70-110 H HGB/HCT (H&H) - STAT [id number] 11:02:00* Test Item Value Reference Range Interpretation Comments HEMOGLOBIN (BEAKER) (test code = 410) 8.9 g/dL 12.0-15.0 L HEMATOCRIT (BEAKER) (test code = 411) 26.0 % 36.0-45.0 L SODIUM NA-STAT [id number] 11:00:00* Test Item Value Reference Range Interpretation Comments SODIUM (BEAKER) (test code = 381) 135 meq/L 136-145 L [id number] 09:11:37Sadi Cintron MD - 12/15/2019 9:11 AM CDT TEEDate: 12/15/2019 9:11 AM Sex: Female Location: OR Examiner: Sadi Cintron MD Intubated Patient screened for esoph disease: Yes Pre Intervention Summary: Aorta: No aneurysm, no dissection, no mobile plaquesAV: trileaflet morphology, no aortic stenosis, no aortic regurgitationLV: normal chamber size , no LVH, normal systolic function (EF 60% Adams's), no RWMA, no thrombus. Normal diastolic function. MV: normal morphology, no mitral regurgitation, no mitral stenosisLA: no ELLEN thrombus, normal ELLEN velocitiesPV: limited visualizationRV: normal sized chamber, normal function, no thrombus. TAPSE 1.8cmTV: normal morphology, normal tricuspid regurgitationRA: no thrombusno PFO by color dopper flowAll findings communicated to surgical team. Post Intervention Summary: Aorta: No aneurysm, no dissection, no mobile plaquesAV: trileaflet morphology, no aortic stenosis, no aortic regurgitationLV: normal chamber size , no LVH, normal systolic function (EF 60% Adams's), no RWMA, no thrombus. Normal diastolic function. MV: normal morphology, no mitral regurgitation, no mitral stenosis, No SAMLA: no ELLEN thrombusPV: limited visualizationRV: normal sized chamber, normal function, no thrombus. TAPSE 1.8cmTV: normal morphology, normal tricuspid regurgitationRA: no thrombusno PFO by color dopper flowAll findings communicated to surgical team. [facility] 2019-12-15 08:41:00* Test Item Value Reference Range Interpretation Comments CALCIUM IONIZED (BEAKER) (test code = 698) 1.11 mmol/L 1.12-1.27 L PH, BLOOD (BEAKER) (test code = 1810) 7.43 BLOOD GAS, [id number] 08:41:00* Test Item Value Reference Range Interpretation Comments PH ARTERIAL (BEAKER) (test code = 383) 7.45 7.35-7.45 PCO2 ARTERIAL (BEAKER) (test code = 384) 32 mmHg 35-45 L PO2 ARTERIAL (BEAKER) (test code = 385) 331 mmHg 80-90 H O2 SATURATION ARTERIAL (BEAKER) (test code = 386) 99.8 % 96.0 -97.0 H HCO3 ARTERIAL (BEAKER) (test code = 388) 22 mmol/L 21-29 BASE EXCESS ARTERIAL (BEAKER) (test code = 387) -1.7 mmol/L -2.0-3 .0 PATIENT TEMPERATURE (BEAKER) (test code = 1818) 35.7 C FIO2 (BEAKER) (test code = 1819) 98.0 % POTASSIUM-STAT [id number] 08:41:00* Test Item Value Reference Range Interpretation Comments POTASSIUM (BEAKER) (test code = 379) 3.2 meq/L 3.6-5.5 L GLUCOSE-STAT [id number] 08:41:00* Test Item Value Reference Range Interpretation Comments GLUCOSE RANDOM (BEAKER) (test code = 652) 127 mg/dL 70-110 H HGB/HCT (H&H) - STAT [id number] 08:41:00* Test Item Value Reference Range Interpretation Comments HEMOGLOBIN (BEAKER) (test code = 410) 11.6 g/dL 12.0-15.0 L HEMATOCRIT (BEAKER) (test code = 411) 34.0 % 36.0-45.0 L SODIUM NA-STAT [id number] 08:40:00* Test Item Value Reference Range Interpretation Comments SODIUM (BEAKER) (test code = 381) 138 meq/L 136-145 Type and screen, [id number] 07:36:00* Test Item Value Reference Range Interpretation Comments ABO/RH AUTOMATED (BEAKER) (test code = 2260) A POSITIVE Ab Scrn (test code = 890-4) NEGATIVE [facility] [id number] 06:08:00* Test Item Value Reference Range Interpretation Comments POC-GLUCOSE METER (BEAKER) (test code = 1538) 87 mg/dL 70-110 : TESTED AT [facility] [address] [place] [address], [address]: Fork Repairer/Firebreak Cutter ID = [id number] for ELIEZER LWE SARS-COV2/RT-PCR ([facility])2019-12-11 15:57:00* Test Item Value Reference Range Interpretation Comments SARS-COV2/RT-PCR (test code = 0556921) Negative N ot Detected, Negative, See external report for linked test SARS-COV-2 PERFORMING LAB (test code = 5914393) [facility] Negative result for this test determines that SARS-CoV-2 RNA was not present in the specimen above the Limit of Detection (LOD). However, Negative results do n ot preclude SARS-CoV-2 infection and should not be used as the sole basis for tr eatment or patient management decisions. Negative results must be combined with clinical observations, patient history, and epidemiological information. A false negative result may occur if a specimen is improperly collected, transported or handled. A false negative result should be considered if patient's recent expo sures or clinical presentation indicate that COVID-19 (SARS-CoV-2) is likely and diagnostic tests for other causes of illness are negative. Re-testing should be considered in cases of suspected false negatives.The limit of detection for this assay is 800 copies/mL.This SARS CoV-2 test is a real-time RT-PCR test intended for the qualitative detection of nucleic acid from SARS-CoV-2 in a nasopharyn geal swab specimen collected from individuals suspected of COVID-19 by their [facility] provider.This test has not been Food and Drug Administration (FDA) clear ed or approved. This is a modified version of an approved Emergency Use Authori zation (EUA) and is in the process of review by the FDA. Once authorized by [facility] FDA, the issued EUA will be effective until the declaration that circumstances exist justifying the authorization of the emergency use of in vitro diagnostic tests for detection and/or diagnosis of COVID-19 is terminated under Section 564 (b)(2) of the Act or the EUA is revoked under Section 564(g) of the Act.Fact She et for Healthcare Providers:https://www.[employer]/sites/default/files/product/d ocuments/Snmu_Nakeh_IH_Ctjdszfki_Penc_DUIZ-ZjH-1.pdfFact Sheet for Healthcare Pa katianas:https://www.[employer]/sites/default/files/product/documents/Fact_Sheet_P yttubei_Bhra_BJOC-KmX-6.pdfPerforming Laboratory:[facility] [address] [facility].[place], [place] [address]KZB, CHEST, 2 [id number] 13:40:00In departmentReason for exam:->Pre-op screenFINAL REPORT CLINICAL HISTORY: Pre-op screen TECHNIQUE: 2 views of the chest COMPARISON: None IMPRESSION: There are no focal infiltrates or effusions. There is no significant appearing cardiomegaly. The visualized bones appear intact. Signed: Janie Hicks MDReport Verified Date/Time: 12/11/2019 13:40:13 Reading Location: [facility] Radiology Reading Room chest 2 [id number] 13:40:00Interface, External Ris In - 12/11/2019 1:42 PM CDTFINAL REPORT CLINICAL HISTORY: Pre-op screen TECHNIQUE: 2 views of the chest COMPARISON: None IMPRESSION: There are no focal infiltrates or effusions. There is no significant appearing cardiomegaly. The visualized bones appear intact. Signed: Janie Hicks MDReport Verified Date/Time: 12/11/2019 13:40:13 Reading Location: [facility] Radiology Reading Room [facility]HE[facility] A[facility] 2019-12-11 11:44:00* Test Item Value Reference Range Interpretation Comments HEMOGLOBIN A1C (BEAKER) (test code = 368) 5.1 % 4.3-6.1 Lipid [id number] 10:51:00* Test Item Value Reference Range Interpretation Comments Triglycerides (test code = 2571-8) 111 mg/dL Cholesterol (test code = 2093-3) 172 mg/dL HDL (test code = 2085-9) 53 mg/dL LDL Calculated (test code = 58504-9) 97 mg/dL DEJA (test code = DEJA) Triglyceride Reference Range : Low Risk <150 Borderline 150-199 High Risk 200-499 Very High Risk >=500 Cholesterol Reference Range: Low Risk <200 Borderline 200-239 High Risk >240 HDL Cholesterol Reference Range: Low Risk >=60 High Risk <40 LDL Cholesterol Reference Range: Optimal <100 Near Optimal 100-129 Borderline 130-159 High 160-189 Very High >=190 Fork Repairer ID - AAHAMID [facility] HospitalMAGNESIUM2020-10-01 10:51:00* Test Item Value Reference Range Interpretation Comments MAGNESIUM (BEAKER) (test code = 627) 2.1 mg/dL 1.6-2.6 Fork Repairer ID - AAHAMIDCOMPREHENSIVE METABOLIC [id number] 10:51:00* Test Item Value Reference Range Interpretation Comments TOTAL PROTEIN (BEAKER) (test code = 770) 7.1 gm/dL 6.0-8.3 ALBUMIN (BEAKER) (test code = 1145) 4.2 g/dL 3.5-5.0 ALKALINE PHOSPHATASE (BEAKER) (test code = 346) 77 U/L 40-150 BILIRUBIN TOTAL (BEAKER) (test code = 377) 0.2 mg/dL 0.2-1.2 SODIUM (BEAKER) (test code = 381) 142 meq/L 136-145 POTASSIUM (BEAKER) (test code = 379) 4.0 meq/L 3.5-5.1 CHLORIDE (BEAKER) (test code = 382) 108 meq/L 98-107 H CO2 (BEAKER) (test code = 355) 28 meq/L 22-29 BLOOD UREA NITROGEN (BEAKER) (test code = 354) 30 mg/dL 7-21 H CREATININE (BEAKER) (test code = 358) 0.83 mg/dL 0.57-1.25 GLUCOSE RANDOM (BEAKER) (test code = 652) 96 mg/dL 70-105 CALCIUM (BEAKER) (test code = 697) 9.5 mg/dL 8.4-10.2 AST (SGOT) (BEAKER) (test code = 353) 14 U/L 5-34 ALT (SGPT) (BEAKER) (test code = 347) 13 U/L 6-55 EGFR (BEAKER) (test code = 1092) 70 mL/min/1.73 sq m ESTIMATED GFR IS NOT ACCURATE CREATININE CLEARANCE IN PREDICTING GLOMERULAR FILTRATION RATE. ESTIMATED GFR IS NOT APPLICABLE FOR DIALYSIS PATIENTS. Fork Repairer ID - AAHAMIDLIPID [id number] 10:51:00* Test Item Value Reference Range Interpretation Comments TRIGLYCERIDES (BEAKER) (test code = 540) 111 mg/dL CHOLESTEROL (BEAKER) (test code = 631) 172 mg/dL HDL CHOLESTEROL (BEAKER) (test code = 976) 53 mg/dL LDL CHOLESTEROL CALCULATED (BEAKER) (test code = 633) 97 mg/dL Triglyceride Reference Range: Low Risk <150 Borderline 150-199 High Risk 200-499 Very High Risk >=500Cholesterol Reference Range: Low Risk <200 Borderline 200-239 High Risk >240HDL Cholesterol Reference Range: Low Risk >=60 High Risk <40LDL Cholesterol Reference Range: Optimal <100 Near Optimal 100-129 Borderline 130-159 High 160-189 Very High >=190 Fork Repairer ID - AAHAMIDPROTHROMBIN TIME/[id number] 10:48:00* Test Item Value Reference Range Interpretation Comments PROTIME (BEAKER) (test code = 759) 13.2 seconds 11.9-14.2 INR (BEAKER) (test code = 370) 1.03 <=5.90 Effective 08/07/2018: PT Reference Range ChangeNew: 11.9-14.2 Previous: 11.7-14. 7RECOMMENDED COUMADIN/WARFARIN INR THERAPY RANGESSTANDARD DOSE: 2.0-3.0 Include s: PROPHYLAXIS for venous thrombosis, systemic embolization; TREATMENT for venou s thrombosis and/or pulmonary embolus.HIGH RISK: Target INR is 2.5-3.5 for patie nts wiht mechanical heart valves.[id number] 10:48:00* Test Item Value Reference Range Interpretation Comments PARTIAL THROMBOPLASTIN TIME (BEAKER) (test code = 760) 26.9 seconds 22.5-36.0 CBC W/PLT COUNT & AUTO [id number] 10:32:00* Test Item Value Reference Range Interpretation Comments WHITE BLOOD CELL COUNT (BEAKER) (test code = 775) 5.2 K/ L 3.5- 10.5 RED BLOOD CELL COUNT (BEAKER) (test code = 761) 4.07 M/ L 3.93-5 .22 HEMOGLOBIN (BEAKER) (test code = 410) 12.5 GM/DL 11.2-15.7 HEMATOCRIT (BEAKER) (test code = 411) 38.2 % 34.1-44.9 MEAN CORPUSCULAR VOLUME (BEAKER) (test code = 753) 93.9 fL 79. 4-94.8 MEAN CORPUSCULAR HEMOGLOBIN (BEAKER) (test code = 751) 30.7 pg 25.6-32.2 MEAN CORPUSCULAR HEMOGLOBIN CONC (BEAKER) (test code = 752) 32.7 GM/DL 32.2-35.5 RED CELL DISTRIBUTION WIDTH (BEAKER) (test code = 412) 12.8 % 11.7-14.4 PLATELET COUNT (BEAKER) (test code = 756) 227 K/CU MM 150-450 MEAN PLATELET VOLUME (BEAKER) (test code = 754) 11.1 fL 9.4-12 .3 NUCLEATED RED BLOOD CELLS (BEAKER) (test code = 413) 0 /100 WBC 0 -0 NEUTROPHILS RELATIVE PERCENT (BEAKER) (test code = 429) 54 % LYMPHOCYTES RELATIVE PERCENT (BEAKER) (test code = 430) 31 % MONOCYTES RELATIVE PERCENT (BEAKER) (test code = 431) 9 % EOSINOPHILS RELATIVE PERCENT (BEAKER) (test code = 432) 5 % BASOPHILS RELATIVE PERCENT (BEAKER) (test code = 437) 1 % NEUTROPHILS ABSOLUTE COUNT (BEAKER) (test code = 670) 2.80 K/ L 1.56-6.13 LYMPHOCYTES ABSOLUTE COUNT (BEAKER) (test code = 414) 1.59 K/ L 1.18-3.74 MONOCYTES ABSOLUTE COUNT (BEAKER) (test code = 415) 0.48 K/ L 0. 24-0.36 H EOSINOPHILS ABSOLUTE COUNT (BEAKER) (test code = 416) 0.25 K/ L 0.04-0.36 BASOPHILS ABSOLUTE COUNT (BEAKER) (test code = 417) 0.04 K/ L 0. 01-0.08 IMMATURE GRANULOCYTES-RELATIVE PERCENT (BEAKER) (test code = 2801) 0 % 0-1 - XR HIP BI [id number]/[id number] 17:01:00 FAX: Vernon Hurley DO [phone] [place]: O St: REG Name: Leoncio TINEOFABRICIO GUZMAN [facility] : [birth year] Age/S: 59/F [address] #: [id number] Loc: [place] [address] Phys: Vernon Gayle DO Acct: [id number] Dis Date: Status: REG CLI PHONE #: [phone] Exam Date: 04/02/2019 1652 FAX #: [phone] Reason: EXAMS: CPT CODE: [id number] XR HIP BI W/PELVIS 77081 REASON FOR EXAM: EXAM ORDER DATE: 04/02/2019 4:35 PM Ordering: Vernon Gayle DO Attending:Vernon Gayle DO Location:[facility] PROCEDURE: - XR HIP BI W/PELVIS FINDINGS: 5 views of the pelvis and bilateral hips were obtained. The osseous structures are unremarkable in size and shape. The pelvic ring is intact. The hip joint are maintained. No evidence of fracture. There is normal alignment of the femoral heads IMPRESSION: Unremarkable pelvis and bilateral hips at 1701 Reported and signed by: John Costa M.D. CC: Vernon Gayle Technologist: SOSA Burris) Trnjuanjose Date/Time/By: 04/02/2019 ( 547) : By: SladeL Orig Print D/T: S: 04/02/2019 (3761) PAGE 1 Signed Report - XR L-SPINE 2/3 [id number] 16:56:00 FAX: Vernon Hurley DO [phone] [place]: O St: REG Name: FABRICIO HILL [facility] : [birth year] Age/S: 59/F [address] [facility] Unit #: [id number] Loc: [place] [address] Phys: Vernon Gayle DO Acct: [id number] Dis Date: Status: REG CLI PHONE #: [phone] Exam Date: 04/02/2019 165 FAX #: [phone] Reason: [id number] EXAMS: CPT CODE: [id number] XR L-SPINE 2/3 VIEWS 43583 REASON FOR EXAM: [id number] EXAM ORDER DATE: 04/02/2019 4:35 PM O rdering: Vernon Gayle DO Attending:Vernon Gayle DO Location: [facility] PROCEDURE: - XR L-SPINE 2/3 VIEWS FINDINGS: 3 v iews of the lumbar spine were obtained. There is normal alignment of the lumbar spine. The vertebral bodies are unremarkable in size and shape, as kt from severe sclerosis of the facet joints of L4-S1. Severe narrowing o f L4-5 disc. No evidence of fracture. IMPRESSION: Severe narro wing of the disc spaces of L4-S1 with sclerosis of the facet joints and pars interarticularis defect of L5-S1. at 4708 Reported and sign ed by: John Costa M.D. CC: Vernon Gayle Technologist: RT Sha(Yahir) Trnscrd Date/Time/By: 04/02/2019 (8740) : By: SharifVTL Orig P rint D/T: S: 04/02/2019 (8910) PAGE 1 Signed Report
== END 2020-01-14 00:20 | disposition home or self-care (01) ==
LOC: ER 21:58
DX: K59.00 Constipation, unspecified (principal); N39.0 Urinary tract infection, site not specified; R10.30 Lower abdominal pain, unspecified; Z95.1 Presence of aortocoronary bypass graft; I10 Essential (primary) hypertension; I48.91 Unspecified atrial fibrillation; E78.5 Hyperlipidemia, unspecified; E03.9 Hypothyroidism, unspecified
CPT/HCPCS: 36415; 74177; 80053; 81001; 83690; 85025; 87086; 99284; J2405; J7040; Q9967